=== PATIENT | male | born 1940 | race Caucasian/White ===

== ENCOUNTER 2017-01-06 12:03 | Inpatient (IN) ==
[2017-01-06] MEDS ORDERED: Ondansetron 4 MG/2 ML VIAL IVP ONE ×2 (12:33→15:50)
[2017-01-06] MEDS ORDERED: 0.9 % Sodium Chloride 1,000 ML IVC ONE (12:33)
[2017-01-06 13:14] LABS: VBG PH 7.45 pH Units (7.32-7.42)
[2017-01-06 13:18] LABS: Basophils % 0.1 %; Eosinophils % 0.1 %; Hematocrit 37.6 % (37.5-50.1); Immature Granulocytes % 0.4 % (0-4); Lymphocytes # 0.7 K/mcL (0.6-4.6); Lymphocytes % 5.8 %; Mean Corpuscular HGB Conc 34.6 g/dL (31.6-35.5); Mean Corpuscular Hemoglobin 30.2 pg (28.0-33.3); Mean Corpuscular Volume 87.4 fL (83.0-100.0); Mean Platelet Volume 13.6 fL (9.4-12.4); Monocytes # 0.8 K/mcL (0.0-1.3); Monocytes % 7.5 %; Neutrophils # 9.7 K/mcL (1.6-8.9); Platelet Count 177 K/mcL (140-400); Red Cell Distribution Width 13.6 % (11.5-14.5); Segmented Neutrophils % 86.1 %
[2017-01-06 13:34] LABS: Albumin 3.9 g/dL (3.5-5.0); Bilirubin,Total 0.6 mg/dL (0.2-1.2); Calcium 12.6 mg/dL (8.6-10.8); Globulin 3.8 g/dL (2.4-3.5); Potassium 4.5 mEq/L (3.5-4.5); Total Protein 7.7 g/dL (6.0-8.3)
--- NOTE | 2017-01-06 14:40 | Emergency Department Note ---
Disposition Clinical Impression: Dizziness, Hyperglycemia Nausea & vomiting Qualifiers: Vomiting type: unspecified Vomiting Intractability: unspecified Qualified Code( s): R11.2 - Nausea with vomiting, unspecified Falls Qualifiers: Encounter type: sequela Qualified Code(s): W19.XXXS - Unspecified fall, sequela Disposition: Admitted As Inpatient Condition: Good Forms: ED Satisfaction Letter Time of Disposition: 16:37 General Adult HPI - General Chief complaint: ED Nausea/Vomiting/Diarrhea Stated complaint: ROMAN,N/V/D x3days Time Seen by Provider: 01/06/17 12:17 Source: patient Mode of arrival: ambulatory Limitations: no limitations Nursing Notes Reviewed: Yes Vital Signs Reviewed: Yes - History of Present Illness HPI Narrative: Patient presents to emergency room with complaint of dizziness falls and poorly controlled glucose. Patient is also had intermittent nausea and vomiting. was concerned and wanted him evaluated today. Denies any recent trauma or injuries except for the falls. Patient has had dizziness and symptoms for over 7 days. Currently is a diabetic and his glucoses of them poorly controlled home. Denies chest pain shortness of breath headache vision changes or diarrhea. Main complaint is dizziness unsteady gait and nausea and vomiting Onset (ago): week(s) Radiation: non-radiation Pain Severity: moderate Pain Scale: 10 Consistency: constant Improves with: nothing Worsens with: movement Associated symptoms: Reports: loss of appetite, malaise, nausea/vomiting - Related Data Home Medications Medication Instructions Recorded Confirmed Allopurinol [Zyloprim 100 MG] 100 mg PO DAILY 01/02/16 01/02/16 Amlodipine Besylate 2.5 mg PO DAILY 01/02/16 01/02/16 Aspirin Enteric Coated [Aspirin EC] 81 mg PO DAILY 01/02/16 01/02/16 Atorvastatin [Lipitor] 40 mg PO HS 01/02/16 01/02/16 Clopidogrel [Plavix] 75 mg PO DAILY 01/02/16 01/02/16 Donepezil [Aricept] 10 mg PO HS 01/02/16 01/02/16 Esomeprazole Magnesium [Nexium] 40 mg PO DAILY 01/02/16 01/02/16 Fish Oil/Dha/Epa [Fish Oil 1,200 1 each PO BID 01/02/16 01/02/16 mg Fish Oil] Garlic [Odor Free Garlic] 100 mg PO DAILY 01/02/16 01/02/16 GlipiZIDE XL (24 HR) [Glucotrol XL] 10 mg PO DAILY 01/02/16 01/02/16 Insulin Glargine,Hum.rec.anlog 18 unit SQ HS 01/02/16 01/02/16 [Lantus Solostar] Losartan Potassium [Cozaar] 100 mg PO DAILY 01/02/16 01/02/16 Metoprolol [Lopressor] 100 mg PO BID 01/02/16 01/02/16 Pregabalin [Lyrica] 150 mg PO BID 01/02/16 01/02/16 Ranitidine HCl [Zantac] 150 mg PO HS 01/02/16 01/02/16 SitaGLIPtin [Januvia] 100 mg PO DAILY 01/02/16 01/02/16 Cholecalciferol (Vitamin D3) 5,000 unit PO DAILY 01/06/17 01/06/17 [Vitamin D3] Insulin LISPRO [Humalog Kwikpen 12 unit SQ TID 01/06/17 01/06/17 U-100] Levomefolate/B6/B12/Algal Oil 1 each PO BID 01/06/17 01/06/17 [Metanx Capsule] Sodium Bicarbonate 650 mg PO TID 01/06/17 01/06/17 Tadalafil [Cialis] 5 mg PO DAILY 01/06/17 01/06/17 Allergies Allergy/AdvReac Type Severity Reaction Status Date / Time Sulfa (Sulfonamide AdvReac Anaphylaxis Verified 01/06/17 12:11 Antibiotics) All systems ED: reviewed and negative except as stated. Constitutional: Denies: fever, chills, weakness Eyes: Denies: eye pain, eye discharge, vision change Cardiovascular: Denies: chest pain, palpitations, dyspnea on exertion, orthopnea Respiratory: Denies: cough, dyspnea, wheezes Gastrointestinal: Reports: nausea, vomiting. Denies: abdominal pain, diarrhea Genitourinary: Denies: dysuria, frequency Musculoskeletal: Denies: back pain, neck pain Integumentary: Denies: rash Neurological: Reports: abnormal gait, vertigo. Denies: headache Endocrine: Denies: fatigue Past Medical History - Past Medical History Attestation: Yes The following information was validated with the patient. Source: patient Medical history: Reports: coronary artery disease, dementia, diabetes, GERD, hyperlipidemia, hypertension, myocardial infarction, renal disease Surgical history: Reports: coronary bypass (CABG) Psychiatric history: Reports: no psych history - Social History Smoking Status: Never smoker Smokeless Tobacco Status: No Alcohol use: Reports: none Drug use: Reports: none Physical Exam - General Limitations: no limitations General appearance: alert - Head Head exam: atraumatic, normocephalic, normal inspection - Eye Eye exam: Present: normal appearance, PERRL, EOMI. Absent: miosis, mydriasis - ENT ENT exam: normal exam, normal oropharynx, mucous membranes moist - Neck Neck exam: Present: normal inspection, full ROM, trachea midline - Chest Chest inspection: Present: normal inspection, symmetric chest wall rise - Respiratory Respiratory exam: Present: normal lung sounds bilaterally. Absent: respiratory distress, wheezes, stridor, accessory muscle use - Cardiovascular Cardiovascular exam: Present: normal rhythm, tachycardia, normal heart sounds - Abdominal Exam Abdominal exam: Present: soft, Non-Tender, normal bowel sounds. Absent: tenderness, distention, guarding, rebound, rigidity, Beck's sign, Rovsing's sign, tenderness at McBurney's Point - Extremities Exam Extremities exam: Present: normal inspection, full ROM, normal capillary refill. Absent: tenderness - Back Exam Back exam: Present: normal inspection, full ROM. Absent: tenderness, CVA tenderness (R), CVA tenderness (L) - Neurological Exam Neurological exam: Present: alert, oriented X3, CN II-XII intact, normal gait - Skin Skin exam: Present: warm, dry, intact, normal color Course Course Narrative: Patient seen and examined the time of arrival. See history of present illness. 76-year-old male presents to emergency room with 7 days of nausea vomiting neck discomfort and stumbling gait. Glucoses about [id number] last several days. Patient was concerned about the multiple complaints he has had wanted him evaluated. is also concerned about generalized malaise. denies any recent illnesses fevers chills chest pain shortness of breath headache or vision changes. The patient on exam is complaining of generalized dizziness and this time and generalized malaise. He denies any recent fevers denies any significant vomiting at this time he has been persistently nauseous. Bedside Accu-Chek is rather over 500. Patient appears to be slightly dehydrated. He has no visible signs of focal neural deficits. He moves both extremities in the upper and lower distributions without any focal deficits or deviations. Cerebellar function appears to be intact patient has symmetric strength. Facial evaluation shows no facial asymmetry. Lungs are clear heart is regular except tachycardic. Abdomen is soft nontender nondistended with no guarding no rigidity. Patient has no signs of lower extremity edema. There is no visible signs of trauma or injuries. Pupils are equal round reactive at this time. Based on symptoms history and presentation patient is concerning for possible subacute infarct of the brain patient also is concerning for decompensation secondary to diabetes-related issue. I will address fluid resuscitation as well as symptoms of nausea medication here. EKG MRI of the head and neck to be ordered. Chest x-ray and CT of the abdomen ordered as well. Basic laboratory evaluation screening for N abnormalities or deficiencies noted at this time. Patient's family informed of our productive course of care. Patient has multiple complaints of multiple presenting issues at this time. Disposition will most likely be admission the hospital but we will continue to monitor here as treatment course is completed. 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 Otherwise his examination is benign. I reviewed these findings with the on-call neurologist Dr. Page. At this point there is no acute pathology noted are needed at this time. I will continue to hydrate the patient control his nausea readdress his glucose status at this time and provide insulin as needed. Patient will be admitted to the hospital for further evaluation and definitive management. Family was informed of the plan considering the patient has poorly controlled nausea poorly controlled diabetes generalized malaise at this time. The falls and ataxia do not have a focal source of this point but reevaluation will be completed in the inpatient setting. Imaging is still pending of the chest and abdomen. Treatment course to be completed admission to be completed at that time Time: 16:10 Reevaluation #2: CT imaging of the abdomen is negative for acute intra-abdominal pathology. Chest x-ray stable. Admission process to be completed this time. First dose of subcutaneous insulin to be given for repeat Accu-Chek of 450. Hospitalist paged at this time Time: 16:38 Reevaluation #3: Patient was reviewed with the hospitalist Dr. zacarias. We reviewed the presentation symptoms medical evaluation and the conversation had with the on- call neurologist. Patient to be admitted for what appears to be poorly controlled hypoglycemia and dizziness of unknown etiology and ataxia. The MRI findings as well as negative CT scan and chest x-ray were reviewed in detail. Patient does have an elevated troponin of 0.07. We do not have any comparable laboratory workup to review this with. I went over the EKG findings with concern for possible ischemic related issues considering he has analyzed malaise. Patient is having all these symptoms for 7 days with no change and denies chest pain again throughout the course of care. Patient provided with aspirin here. At this point patient be admitted for definitive evaluation and management. No other recommendations or issues noted at this time. We will continue monitoring in the emergency room at the admission process is completed. Patient is otherwise stable resting comfortably in the bed. Discussed all the conversations as well as recommendations with the family and they are comfortable with the plan. Patient is happy for her consideration and care. Time: 16:59 Vital Signs Temperature 98.8 F 01/06/17 12:11 Pulse Rate 121 01/06/17 12:11 Respiratory Rate 20 01/06/17 12:11 Blood Pressure 204/98 01/06/17 12:11 O2 Sat by Pulse Oximetry 97 01/06/17 12:11 Temperature 98.8 F 01/06/17 12:11 Pulse Rate 78 01/06/17 13:22 Respiratory Rate 18 01/06/17 13:22 Blood Pressure 162/112 01/06/17 13:22 O2 Sat by Pulse Oximetry 94 01/06/17 13:22 Oxygen Delivery Oxygen Delivery Room Air Medical Decision Making - [facility] [place] Narrative Medical decision making narrative: Falls, hyperglycemia, generalized malaise, vertigo, acute gyri infarct - Medical Records Medical records reviewed: Yes I reviewed the patient's medical records. - Lab Data Lab results reviewed: Yes I reviewed the patient's lab results. Result diagrams: 01/06/17 12:41 01/06/17 12:41 Lab Results 01/06/17 01/06/17 01/06/17 Range/Units 12:13 12:41 12:41 WBC 11.2 H (4.3-11.1) K/mcL RBC 4.30 (4.19-5.50) M/mcL Hgb 13.0 (12.9-16.9) g/dL Hct 37.6 (37.5-50.1) % MCV 87.4 (83.0-100.0) fL MCH 30.2 (28.0-33.3) pg MCHC 34.6 (31.6-35.5) g/dL RDW 13.6 (11.5-14.5) % Plt Count 177 (140-400) K/mcL MPV 13.6 H (9.4-12.4) fL Immature Gran % 0.4 (0-4) % Seg Neutrophils % 86.1 % Lymphocytes % 5.8 % Monocytes % 7.5 % Eosinophils % 0.1 % Basophils % 0.1 % Neutrophils # 9.7 H (1.6-8.9) K/mcL Lymphocytes # 0.7 (0.6-4.6) K/mcL Monocytes # 0.8 (0.0-1.3) K/mcL Eosinophils # 0.0 (0.0-0.6) K/mcL Basophils # 0.0 (0.0-0.2) K/mcL VBG pH (7.32-7.42) pH Units VBG pCO2 (41-51) mmHg VBG pO2 (25-40) mmHg VBG HCO3 (21-27) mEq/L Sodium 129 L (136-145) mEq/L Potassium 4.5 (3.5-4.5) mEq/L Chloride 88 L (98-109) mEq/L Carbon Dioxide 28 (19-29) mEq/L BUN 25 (8-26) mg/dL Creatinine 2.44 H (0.72-1.25) mg/dL Est GFR ( Amer) 31 L (> 60) Est GFR (Non-Af Amer) 26 L (> 60) BUN/Creatinine Ratio 10 (6-26) Glucose 626 H* (70-99) mg/dL POC Glucose 524 H* (58-89) Calculated Osmolality 302 H (280-300) Calcium 12.6 H (8.6-10.8) mg/dL Total Bilirubin 0.6 (0.2-1.2) mg/dL AST 28 (5-34) Units/L ALT 31 (0-55) Units/L Alkaline Phosphatase 84 (38-126) Units/L Serum Total Protein 7.7 (6.0-8.3) g/dL Albumin 3.9 (3.5-5.0) g/dL Globulin 3.8 H (2.4-3.5) g/dL Albumin/Globulin Ratio 1.0 L (1.1-2.2) Lipase 38 (8-78) Units/L Beta-Hydroxybutyric Acd (0.02-0.27) mmol/L 01/06/17 01/06/17 Range/Units 12:41 12:41 WBC (4.3-11.1) K/mcL RBC (4.19-5.50) M/mcL Hgb (12.9-16.9) g/dL Hct (37.5-50.1) % MCV (83.0-100.0) fL MCH (28.0-33.3) pg MCHC (31.6-35.5) g/dL RDW (11.5-14.5) % Plt Count (140-400) K/mcL MPV (9.4-12.4) fL Immature Gran % (0-4) % Seg Neutrophils % % Lymphocytes % % Monocytes % % Eosinophils % % Basophils % % Neutrophils # (1.6-8.9) K/mcL Lymphocytes # (0.6-4.6) K/mcL Monocytes # (0.0-1.3) K/mcL Eosinophils # (0.0-0.6) K/mcL Basophils # (0.0-0.2) K/mcL VBG pH 7.45 H (7.32-7.42) pH Units VBG pCO2 46 (41-51) mmHg VBG pO2 31 (25-40) mmHg VBG HCO3 32.0 H (21-27) mEq/L Sodium (136-145) mEq/L Potassium (3.5-4.5) mEq/L Chloride (98-109) mEq/L Carbon Dioxide (19-29) mEq/L BUN (8-26) mg/dL Creatinine (0.72-1.25) mg/dL Est GFR ( Amer) (> 60) Est GFR (Non-Af Amer) (> 60) BUN/Creatinine Ratio (6-26) Glucose (70-99) mg/dL POC Glucose (58-89) Calculated Osmolality (280-300) Calcium (8.6-10.8) mg/dL Total Bilirubin (0.2-1.2) mg/dL AST (5-34) Units/L ALT (0-55) Units/L Alkaline Phosphatase (38-126) Units/L Serum Total Protein (6.0-8.3) g/dL Albumin (3.5-5.0) g/dL Globulin (2.4-3.5) g/dL Albumin/Globulin Ratio (1.1-2.2) Lipase (8-78) Units/L Beta-Hydroxybutyric Acd 1.16 H (0.02-0.27) mmol/L - Radiology Data Radiology results reviewed: Yes I reviewed the patient's radiology results. CT of the abdomen and chest reviewed. See Decadron dose. MRI reviewed showing small acute infarct no other acute pathology noted. - EKG Data EKG #1 EKG attestation: Yes I reviewed and interpreted this EKG. EKG shows normal: sinus rhythm, axis, intervals, QRS complexes, ST-T waves Rate: tachycardia Rhythm: NSR [place]/QRS: normal Voltage: increased voltage throughout When compared to previous EKG there are: no significant changes Interpretation: no acute changes, unchanged when compared to prior tracing (date ) (09/11/15 morphology is similar to previous EKG at that time.) Critical Care Time Critical Care Time: Yes Total Critical Care Time: 45 Attestation: Critical care performed: Time is exclusive of separately billable procedures. Time includes: direct patient care, patient reassessment, coordination of patient care, interpretation of data (laboratory data, radiology data, and respiratory data), review of patient's medical records, medical consultation and documentation of patient care. Procedures included in critical care time: Procedures excluded from critical care time:
[2017-01-06] MEDS ORDERED: Insulin DETEMIR 100 UNIT/ML X5UNITS SQ ONE (16:35)
[2017-01-06] MEDS ORDERED: Aspirin 81 MG TAB.CHEW PO STA (16:50)
[2017-01-06] MEDS ORDERED: Insulin Regular, Human 100 UNIT/ML SQ ONE (17:12)
[2017-01-06] MEDS ORDERED: Naloxone 0.4 MG/ML INJ IVP PRN (17:39)
[2017-01-06] MEDS ORDERED: Ondansetron 4 MG/2 ML VIAL IVP PRN (17:39)
[2017-01-06] MEDS ORDERED: *HR* Dextrose 50 % in Water (Syg) 50 ML SYRINGE IVP PRN (17:45)
[2017-01-06] MEDS ORDERED: Dextrose Gel 15 GM PO PRN ×2 (17:45)
[2017-01-06] MEDS ORDERED: D5% in Water 1,000 ML IVC PRN (17:45)
[2017-01-06] MEDS ORDERED: *HR* Promethazine 25 MG/ML VIAL IVP PRN (18:11)
--- NOTE | 2017-01-06 18:45 | Internal Med History&Physical ---
Addendum entered and electronically signed by Nuvia Stewart CNP 01/07/17 00: 03: (1) Acute CVA: Patient presented with fall, and dizziness. MRI of brain showed punctate acute infarct in right middle frontal gyrus cortex. Patient given 325mg of aspirin. Continue atorvastatin and plavix. MRA of Head and neck obtained. Continuous athletic monitor. echocardiogram. Neurology consulted. Original Note: <Aleksey Fermin P - Last Filed: 01/06/17 20:06> Date of Encounter: 01/06/17 Internal Medicine - H&P: HPI History of present illness: Mr. Gillette is a 76 year old male Internal Medicine - H&P: Meds Allopurinol [Zyloprim 100 MG] 100 mg PO DAILY 01/02/16 [History] Amlodipine Besylate 2.5 mg PO DAILY 01/02/16 [History] Aspirin Enteric Coated [Aspirin EC] 81 mg PO DAILY 01/02/16 [History] Atorvastatin [Lipitor] 40 mg PO HS 01/02/16 [History] Clopidogrel [Plavix] 75 mg PO DAILY 01/02/16 [History] Donepezil [Aricept] 10 mg PO HS 01/02/16 [History] Esomeprazole Magnesium [Nexium] 40 mg PO DAILY 01/02/16 [History] Fish Oil/Dha/Epa [Fish Oil 1,200 mg Fish Oil] 1 each PO BID 01/02/16 [History] Garlic [Odor Free Garlic] 100 mg PO DAILY 01/02/16 [History] GlipiZIDE XL (24 HR) [Glucotrol XL] 10 mg PO DAILY 01/02/16 [History] Insulin Glargine,Hum.rec.anlog [Lantus Solostar] 40 unit SQ HS 01/02/16 [History ] Losartan Potassium [Cozaar] 100 mg PO DAILY 01/02/16 [History] Metoprolol [Lopressor] 100 mg PO BID 01/02/16 [History] Pregabalin [Lyrica] 150 mg PO BID 01/02/16 [History] Ranitidine HCl [Zantac] 150 mg PO HS 01/02/16 [History] SitaGLIPtin [Januvia] 100 mg PO DAILY 01/02/16 [History] Cholecalciferol (Vitamin D3) [Vitamin D3] 5,000 unit PO DAILY 01/06/17 [History] Insulin LISPRO [Humalog Kwikpen U-100] 12 unit SQ TID 01/06/17 [History] Levomefolate/B6/B12/Algal Oil [Metanx Capsule] 1 each PO BID 01/06/17 [History] Sodium Bicarbonate 650 mg PO TID 01/06/17 [History] Tadalafil [Cialis] 5 mg PO DAILY 01/06/17 [History] Allergies Sulfa (Sulfonamide Antibiotics) Adverse Reaction (Verified 01/06/17 12:11) Anaphylaxis All Systems PM: A 10-system review of systems was performed and is negative for pertinent findings except as documented above in the HPI. - Constitutional Vitals: Temp Pulse Resp BP Pulse Ox 98.8 F 114 18 144/92 96 01/06/17 12:11 01/06/17 17:36 01/06/17 19:04 01/06/17 19:04 01/06/17 17:36 Internal Med - H&P Results - Labs CBC & Chem 7: 01/06/17 12:41 01/06/17 12:41 - Attending Attestation I examined this patient and my medical decision-making was reviewed with the Resident Physician/CORPORATE QUALITY ASSURANCE MANAGER. I agree with the documented findings, disposition and treatment plan as described except to the extent set forth below. Admitted with multiple falls. Noted that MRI showed acute CVA. Also observed that his blood sugar is more than 500. Plan: ASA/statin PT/OT evaluation Echo, ultrasound carotid <Nuvia Stewart - Last Filed: 01/07/17 00:01> Date of Encounter: 01/06/17 Time of Encounter: 18:45 Assessment and Plan (1) Hyperglycemia Current visit: Yes Status: Acute Patient with blood sugar > 500 on presentation. He reports he has been nauseous and vomiting since and has not been taking his insulin because of this. Anion gap initially 13, improved to 10 after fluid administration. UA ordered. Continue fluids 0.9NS at 150. Total of 30u of basal levemir given. Checking blood sugar Q4hr and sliding scale insulin Q4hr. May switch to q6hr once blood sugar < 200. hypoglycemic protocol. (2) Dehydration Current visit: Yes Status: Acute Patient appears dehydrated secondary to N/V, poor oral intake. Given 1L bolus in ED. Continue with 0.9NS at 150mL/hr. (3) Type 2 diabetes mellitus Current visit: Yes Status: Acute check A1c Patient hyperglycemic and not tolerating PO well. Check blood sugars Q4hr Basal dose of levemir total of 30u given Sliding scale correction dose Q4hr May switch to Q6hr once blood sugar is < 200. hypoglycemic protocol. 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 Zofran and phenergan PRN for nausea IV fluids 0.9NS at 150mL/hr Qualifiers: Vomiting type: cyclical vomiting Vomiting Intractability: non-intractable Qualified Code(s): G43.A0 - Cyclical vomiting, not intractable (5) Falls Current visit: Yes Status: Acute Patient presented with dizziness and falls. When questioned, it sounds more like lightheadedness. Patient reports he only fell once and describes it at mechanical. MRI of head was obtained and did show punctate acute infarct in right middle frontal gyrus cortex. fall precautions neurology consult PT/OT consult. Qualifiers: Encounter type: initial encounter Qualified Code(s): W19.XXXA - Unspecified fall, initial encounter (6) Elevated troponin Current visit: Yes Status: Acute Troponin 0.07 on presentation. Patient not complaining of chest pain. EKG showed sinus tachycardia with no acute changes. Elevated troponin likely related to dehydration but will trend. Continuous athletic monitor Serial troponins, repeat came down to 0.02. (7) DVT prophylaxis Current visit: Yes Status: Acute anti-embolic stockings heparin SQ TID Internal Medicine - H&P: HPI Chief complaint: falls, elevated glucose Admitted From: Emergency Dept Plans for Post Hospital Care: Home History of present illness: Mr. Gillette is a 76 year old male with hypertension, hyperlipidemia, coronary artery disease status post CABG, type 2 diabetes, chronic kidney disease presented to the emergency department today with complaints of dizziness, falls , nausea, vomiting, and uncontrolled blood sugar. Patient reports that last he started feeling ill with nausea, vomiting, and that he has not been taking his medication since he started feeling sick, including his insulin. He complains of generalized weakness, occasional lightheadedness, and reports he did fall once, but describes it as a mechanical fall slipping on some spilled water. He denies headache, chest pain, palpitations, shortness of breath, diarrhea, or increased swelling. Evaluation in the emergency department revealed blood sugar above 500. He appeared dehydrated with elevated BUN and creatinine. Hyponatremia with sodium 129, anion gap was 13. Troponin was also elevated to 0.07. EKG shows sinus tachycardia with no acute ischemic changes. CT of abdomen and pelvis showed no acute process. MRI of the head showed a punctate acute infarct in the right middle frontal gyrus cortex, and a chronic infarct in the right frontal lobe. Patient was given fluids, insulin, and neurology was consulted. On exam, patient alert and oriented, in no acute distress. Heart had regular rate and rhythm, lungs are clear bilaterally to auscultation. No peripheral edema. Abdomen is soft nontender with positive bowel sounds. Cranial nerves intact, no pronator drift. Past Med Surg Social Fam HX - Past Medical History Medical history: coronary artery disease, dementia, diabetes, GERD, hyperlipidemia, hypertension, myocardial infarction, renal disease Psychiatric history: no psych history - Past Surgical History Surgical History: coronary bypass (CABG) - Social History Smoking Status: Never smoker Smokeless Tobacco Status: No Alcohol use: none Drug use: none - Family History Mother Living Status: Hx Family Cardiac Disorders: Yes All Systems PM: A 10-system review of systems was performed and is negative for pertinent findings except as documented above in the HPI. - Constitutional Constitutional: chills, falls, night sweats, weakness, no fever(s) - EENT Eyes: no change in vision, no discharge, no pain, no photophobia Ears: no ear discharge, no ear pain, no tinnitus Nose, mouth and throat: no dysphagia, no nasal discharge, no neck pain, no sore throat - Cardiovascular Cardiovascular ROS IM: lightheadedness, no chest pain, no diaphoresis, no dyspnea, no palpitations, no syncope - Respiratory Respiratory: no cough, no dyspnea, no wheezing, no excessive phlegm production - Gastrointestinal Gastrointestinal: nausea, vomiting, no abdominal pain, no diarrhea, no hematemesis, no hematochezia, no melena - Musculoskeletal Musculoskeletal ROS IM: no numbness, no tingling - Integumentary Integumentary IM: no rash, no unusual bruising - Neurological Neurological ROS: no confusion, no convulsions, no focal weakness, no numbness, no tingling, no tremor(s) - Hematologic/Lymphatic Hematologic/Lymphatic: no easy bruising - Constitutional Vitals: Temp Pulse Resp BP Pulse Ox 98.8 F 114 18 172/129 96 01/06/17 12:11 01/06/17 17:36 01/06/17 17:36 01/06/17 17:36 01/06/17 17:36 General appearance: Present: A&O X 3, pleasant, no acute distress - Head Head exam: Present: atraumatic, normocephalic - Eye Eye exam: Present: PERRL, conjuntiva pink, sclera anicteric Pupils: Present: PERRL - Neck Neck exam general surgery: Present: supple, trachea midline. Absent: lymphadenopathy - Respiratory Respiratory exam: Present: CTAB. Absent: accessory muscle use, rales, rhonchi, wheezes - Cardiovascular Cardiovascular exam: Present: RRR, +S1, +S2. Absent: diastolic murmur, gallop, rubs, systolic murmur - GI/Abdominal GI/Abdominal exam: Present: normal bowel sounds, soft, no peritoneal signs. Absent: distended, tenderness - Extremities Exam Extremities exam: Present: warm, radial pulses palpable and symetrical. Absent : calf tenderness, cyanotic, pedal edema - Neurological Exam Neurological exam: Present: CN II-XII intact, oriented X3, no focal deficits. Absent: pronater drift, facial droop, speech deficit - Skin Skin exam: Present: dry, intact Internal Med - H&P Results - Labs CBC & Chem 7: 01/06/17 12:41 01/06/17 20:28 Labs: Short CBC 01/06/17 Range/Units 12:41 WBC 11.2 H (4.3-11.1) K/mcL Hgb 13.0 (12.9-16.9) g/dL Hct 37.6 (37.5-50.1) % Plt Count 177 (140-400) K/mcL Neutrophils # 9.7 H (1.6-8.9) K/mcL BMP 01/06/17 12:41 Sodium 129 L Potassium 4.5 Chloride 88 L Carbon Dioxide 28 BUN 25 Creatinine 2.44 H Glucose 626 H* Calcium 12.6 H Cardiac Enzymes 01/06/17 Range/Units 12:41 Troponin I 0.07 H* (0-0.03) ng/mL Liver Function 01/06/17 Range/Units 12:41 Total Bilirubin 0.6 (0.2-1.2) mg/dL AST 28 (5-34) Units/L ALT 31 (0-55) Units/L Alkaline Phosphatase 84 (38-126) Units/L Albumin 3.9 (3.5-5.0) g/dL - ABG Interpretation ABG results: 01/06/17 12:41 VBG pH 7.45 H VBG pCO2 46 VBG pO2 31 VBG HCO3 32.0 H - Impressions ITS Impressions Brain MRI 01/06/17 00:00 IMPRESSION: 1. Punctate acute infarct noted in the right middle frontal gyrus cortex (series 6, image 25). This is in the anterior right MCA vascular distribution and may represent sequela of a proximal embolic source. 2. Chronic infarct noted in the cortical and subcortical white matter of the right frontal lobe. 3. Mild chronic microvascular white matter ischemic disease is noted supratentorially. D/ / 01/06/2017 15:57:08 Chris Elder MD / [facility] Interpreting Provider: Chris Elder MD Head MRA 01/06/17 12:34 IMPRESSION: 1. Short segment mild to moderate stenosis of a proximal M2 branch of the right middle cerebral artery. 2. Otherwise, unremarkable MR angiogram of the [place]. D/ / 01/06/2017 15:37:03 Fidel Reyna MD / [facility] Interpreting Provider: Fidel Reyna MD Neck MRA 01/06/17 12:34 IMPRESSION: 1. Limited MRA of the neck given the lack of IV contrast. 2. There is an estimated 75% stenosis at the right internal carotid artery origin and a tandem 50% stenosis approximately 1.7 cm distal to the origin. 3. There is a 40% stenosis in the proximal left internal carotid artery. 4. Antegrade flow is noted in the left vertebral artery on the 2D lffi-ru-zdbhut imaging, however, this is poorly visualized on the 3D kdhm-fv-lxmcyv imaging which could be related to its small size. The right vertebral artery is grossly patent, however, there may be a mild stenosis near its origin. D/ / 01/06/2017 15:39:47 Chris Elder MD / [facility] Interpreting Provider: Chris Elder MD Abdomen/Pelvis CT 01/06/17 15:51 IMPRESSION: No acute process D/ / Henok Gibson MD / Henok Gibson MD Interpreting Provider: Henok Gibson MD Chest X-Ray 01/06/17 15:51 IMPRESSION: 1. No acute radiographic finding in the chest. D/ / Loc Rojas MD / Loc Rojas MD Interpreting Provider: Loc Rojas MD - Diagnostic Studies Chest x-ray Additional comments: Chest X-Ray 01/06/17 15:51 IMPRESSION: 1. No acute radiographic finding in the chest. D/ / Loc Rojas MD / Loc Rojas MD Interpreting Provider: Loc Rojas MD CT scan - head Additional comments: MRI - head Additional comments: Brain MRI 01/06/17 00:00 IMPRESSION: 1. Punctate acute infarct noted in the right middle frontal gyrus cortex (series 6, image 25). This is in the anterior right MCA vascular distribution and may represent sequela of a proximal embolic source. 2. Chronic infarct noted in the cortical and subcortical white matter of the right frontal lobe. 3. Mild chronic microvascular white matter ischemic disease is noted supratentorially. D/ / 01/06/2017 15:57:08 Chris Elder MD / [facility] Interpreting Provider: Chris Elder MD Head MRA 01/06/17 12:34 IMPRESSION: 1. Short segment mild to moderate stenosis of a proximal M2 branch of the right middle cerebral artery. 2. Otherwise, unremarkable MR angiogram of the [place]. D/ / 01/06/2017 15:37:03 Fidel Reyna MD / [facility]ony Interpreting Provider: Fidel Reyna MD Neck MRA 01/06/17 12:34 IMPRESSION: 1. Limited MRA of the neck given the lack of IV contrast. 2. There is an estimated 75% stenosis at the right internal carotid artery origin and a tandem 50% stenosis approximately 1.7 cm distal to the origin. 3. There is a 40% stenosis in the proximal left internal carotid artery. 4. Antegrade flow is noted in the left vertebral artery on the 2D egym-cr-wzdaym imaging, however, this is poorly visualized on the 3D bnac-lc-gyfxoq imaging which could be related to its small size. The right vertebral artery is grossly patent, however, there may be a mild stenosis near its origin. D/ / 01/06/2017 15:39:47 Chris Elder MD / rony Interpreting Provider: Chris Elder MD CT scan - abdomen Additional comments: Abdomen/Pelvis CT 01/06/17 15:51
[2017-01-06 20:56] LABS: Potassium 4.4 mEq/L (3.5-4.5)
[2017-01-06] MEDS: 0.9 % Sodium Chloride 1,000 ML IVC SCH (21:16)
[2017-01-06] MEDS: Insulin LISPRO 300 UNITS/3 ML VIAL SQ SCH ×2 (21:16→23:55)
[2017-01-06] MEDS: Insulin DETEMIR 100 UNIT/ML X5UNITS SQ SCH (21:29)
[2017-01-06] MEDS: Pregabalin 75 MG CAPSULE PO SCH (21:47)
[2017-01-06] MEDS: Metoprolol 100 MG TABLET PO SCH (21:47)
[2017-01-06] MEDS: Famotidine 20 MG TABLET PO SCH (21:48)
[2017-01-06] MEDS: *HR* Heparin 5,000 UNIT/ML VIAL SQ SCH (23:48)
[2017-01-07 00:24] LABS: Bilirubin,Urine Negative (Negative); Blood,Urine Small (Negative); Clarity,Urine Clear (Clear); Color,Urine Yellow (Yellow); Glucose,Urine (UA) >=1000 mg/dL (Normal); Ketones,Urine Negative (Negative); Leukocyte Esterase,Urine Negative (Negative); Nitrite,Urine Negative (Negative); PH,Urine 5.5 pH Units (5.0-8.0); Protein,Urine 100 mg/dL (Neg-Trace); Specific Gravity,Urine > 1.030 (1.010-1.025); Urobilinogen,Urine Normal (Normal)
[2017-01-07 00:28] LABS: Bacteria,Urine None Seen per hpf (None-Few); Hyaline Casts,Urine None Seen per lpf (None-Few); RBC,Urine 0-3 per hpf (0-3); Squamous Epithelial Cell,Urine Moderate per lpf (None-Few); WBC,Urine 0-3 per hpf (0-3)
[2017-01-07 02:09] LABS: Basophils % 0.3 %; Eosinophils # 0.1 K/mcL (0.0-0.6); Eosinophils % 0.8 %; Hematocrit 31.9 % (37.5-50.1); Hemoglobin 11.1 g/dL (12.9-16.9); Immature Granulocytes % 0.3 % (0-4); Lymphocytes # 1.7 K/mcL (0.6-4.6); Lymphocytes % 14.5 %; Mean Corpuscular HGB Conc 34.8 g/dL (31.6-35.5); Mean Corpuscular Hemoglobin 30.5 pg (28.0-33.3); Mean Corpuscular Volume 87.6 fL (83.0-100.0); Mean Platelet Volume 13.4 fL (9.4-12.4); Monocytes # 1.7 K/mcL (0.0-1.3); Monocytes % 14.2 %; Neutrophils # 8.3 K/mcL (1.6-8.9); Platelet Count 173 K/mcL (140-400); Red Blood Count 3.64 M/mcL (4.19-5.50); Red Cell Distribution Width 13.7 % (11.5-14.5); Segmented Neutrophils % 69.9 %
[2017-01-07 02:25] LABS: Potassium 4.4 mEq/L (3.5-4.5)
[2017-01-07] MEDS: 0.9 % Sodium Chloride 1,000 ML IVC SCH ×3 (03:52→20:05)
[2017-01-07] MEDS: Insulin LISPRO 300 UNITS/3 ML VIAL SQ SCH ×5 (04:45→21:54)
--- NOTE | 2017-01-07 09:06 | Internal Med Progress Note ---
<Meng Cano - Last Filed: 01/07/17 16:58> Date of Encounter: 01/07/17 Time of Encounter: 09:06 - Assessment and plan (1) Acute CVA (cerebrovascular accident) Current Visit: Yes Status: Acute Assessment and plan: Acute recurrent CVA despite anticoagulation with both aspirin and Plavix. ( Failure of Primary and secondary stroke prevention). Awaiting neurology consultation/recommendations. Patient presented with fall, and dizziness. MRI of brain showed punctate acute infarct in right middle frontal gyrus cortex. Patient given 325mg of aspirin. MRA of Head and neck obtained. 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 Continue atorvastatin and plavix. PT/OT recommends home health care 3 times per week upon discharge with 4 wheeled walker Echo reveals LVEF 60%, All wall segments showed normal motion Ultrasound carotid pending (2) Acute kidney injury Current Visit: Yes Status: Acute Assessment and plan: Creatinine slowly improving. Continue IV fluids and monitoring (3) Demand ischemia Current Visit: Yes Status: Acute Assessment and plan: Initial troponin elevation record related to remained ischemia and dehydration. Subsequent troponin is negative 2 (4) Falls Current Visit: Yes Status: Acute Assessment and plan: Fall precautions. PT/ OT recommends rolling walker and home health care upon discharge Qualifiers: Encounter type: initial encounter Qualified Code(s): W19.XXXA - Unspecified fall, initial encounter (5) Type 2 diabetes mellitus Current Visit: Yes Status: Acute Assessment and plan: Patient with blood sugar > 500 on presentation. He reports he has been nauseous and vomiting since and has not been taking his insulin because of this. Anion gap initially 13, improved to 10 after fluid administration. Continue fluids 0.9NS at 150. Monitor blood sugar and continue sliding scale insulin per hypoglycemic protocol. 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 Fermin - Subjective Interval history: Patient resting comfortably in bed. Patient is surprised to hear that he had a CVA. Question short-term memory loss. She denies any neurologic complaints or residual deficits at this time. Awaiting neurology recommendations. - Constitutional Vitals: Temp Pulse Resp BP Pulse Ox 98.3 F 72 15 172/82 93 01/07/17 07:22 01/07/17 07:22 01/07/17 07:22 01/07/17 07:22 01/07/17 07:22 General appearance: Present: A&O X 3, pleasant, no acute distress, obese, answers questions appropriately - Head Head exam: Present: atraumatic, normocephalic - Eye Eye exam: Present: PERRL, conjuntiva pink, sclera anicteric Pupils: Present: PERRL - ENT ENT exam: Present: mucous membranes moist, normal oropharynx - Neck Neck exam general surgery: Present: supple, trachea midline. Absent: lymphadenopathy - Respiratory Respiratory exam: Present: CTAB. Absent: accessory muscle use, rales, rhonchi, wheezes - Cardiovascular Cardiovascular exam: Present: RRR, +S1, +S2. Absent: diastolic murmur, gallop, rubs, systolic murmur - GI/Abdominal GI/Abdominal exam: Present: normal bowel sounds, soft, no peritoneal signs. Absent: distended, tenderness - Extremities Exam Extremities exam: Present: warm, radial pulses palpable and symetrical. Absent : calf tenderness, cyanotic, pedal edema - Neurological Exam Neurological exam: Present: alert, CN II-XII intact, oriented X3, no focal deficits, strengths equal and symetr throughout. Absent: motor sensory deficit , pronater drift, facial droop, speech deficit - Psychiatric Psychiatric exam: Present: flat affect, normal mood - Skin Skin exam: Present: dry, intact, warm Internal Medicine: Result - Labs CBC & Chem 7: 01/07/17 01:15 01/07/17 01:15 Labs: Short CBC 01/07/17 Range/Units 01:15 WBC 11.9 H (4.3-11.1) K/mcL Hgb 11.1 L D (12.9-16.9) g/dL Hct 31.9 L (37.5-50.1) % Plt Count 173 (140-400) K/mcL Neutrophils # 8.3 (1.6-8.9) K/mcL BMP 01/06/17 01/07/17 20:28 01:15 Sodium 133 L 136 Potassium 4.4 4.4 Chloride 94 L 100 Carbon Dioxide 29 27 BUN 25 25 Creatinine 2.27 H 2.05 H Glucose 482 H 220 H Calcium 12.0 H 11.0 H Cardiac Enzymes 01/07/17 Range/Units 01:15 Troponin I 0.03 (0-0.03) ng/mL Urine 01/07/17 Range/Units 00:07 Urine Color Yellow (Yellow) Urine Clarity Clear (Clear) Urine pH 5.5 (5.0-8.0) pH Units Ur Specific [place] > 1.030 H (1.010-1.025) Urine Protein 100 H (Neg-Trace) mg/dL Urine Glucose (UA) >=1000 H (Normal) mg/dL Consult Discharge Plan - Plan Referrals: Benny Jordan MD [Primary Care Provider] - <Aleksey Fermin - Last Filed: 01/07/17 18:32> Date of Encounter: 01/07/17 - Constitutional Vitals: Temp Pulse Resp BP Pulse Ox 98.4 F 71 16 105/63 92 01/07/17 15:44 01/07/17 15:44 01/07/17 15:44 01/07/17 15:44 01/07/17 15:44 Internal Medicine: Result - Labs CBC & Chem 7: 01/07/17 01:15 01/07/17 01:15 Labs: Short CBC 01/07/17 Range/Units 01:15 WBC 11.9 H (4.3-11.1) K/mcL Hgb 11.1 L D (12.9-16.9) g/dL Hct 31.9 L (37.5-50.1) % Plt Count 173 (140-400) K/mcL Neutrophils # 8.3 (1.6-8.9) K/mcL BMP 01/06/17 01/07/17 20:28 01:15 Sodium 133 L 136 Potassium 4.4 4.4 Chloride 94 L 100 Carbon Dioxide 29 27 BUN 25 25 Creatinine 2.27 H 2.05 H Glucose 482 H 220 H Calcium 12.0 H 11.0 H Cardiac Enzymes 01/07/17 Range/Units 01:15 Troponin I 0.03 (0-0.03) ng/mL Urine 01/07/17 Range/Units 00:07 Urine Color Yellow (Yellow) Urine Clarity Clear (Clear) Urine pH 5.5 (5.0-8.0) pH Units Ur Specific [place] > 1.030 H (1.010-1.025) Urine Protein 100 H (Neg-Trace) mg/dL Urine Glucose (UA) >=1000 H (Normal) mg/dL - Attending Attestation I examined this patient and my medical decision-making was reviewed with the Resident Physician. I agree with the documented findings, disposition and treatment plan as described except to the extent set forth below. Neurology recommendations appreciated. Likely home tomorrow.
[2017-01-07] MEDS: Pregabalin 75 MG CAPSULE PO SCH ×2 (09:18→21:53)
[2017-01-07] MEDS: Aspirin Enteric Coated 81 MG Tablet PO SCH (09:18)
[2017-01-07] MEDS: Metoprolol 100 MG TABLET PO SCH ×2 (09:18→21:53)
[2017-01-07] MEDS: *HR* Heparin 5,000 UNIT/ML VIAL SQ SCH ×2 (09:19→17:23)
[2017-01-07] MEDS: amLODIPine 5 MG TABLET PO SCH (09:19)
--- NOTE | 2017-01-07 18:06 | Neurology - Consult Note ---
Date of Encounter: 01/07/17 Time of Encounter: 18:03 Assessment and Plan (1) Abnormal brain MRI Current Visit: Yes Status: Acute I am not at all convinced that the MRI findings are all related to the symptoms he presented with acutely upon admission. None of his symptoms localize to the right cerebral hemisphere. Furthermore the area of microinfarct in the right frontal region is too small in my opinion to produce any observable clinical symptomatology. However nonetheless it may very well be a small microinfarct perhaps a micro-thromboembolic event from the stenosed M2 segment of the right middle cerebral artery or maybe even a micro-thromboembolic event from the 75% stenosed right internal carotid artery. His echocardiogram was negative. At this point I will recommend simply maintaining the aspirin and Plavix combination. Subclinical events and microinfarcts are fairly common amongst those individuals with stroke risk factors. Certainly aggressive management of the stroke risk factors is paramount. I will also recommend vascular consultation to determine whether or not a right carotid endarterectomy may be feasible. Studies have not shown anticoagulation to be superior to antiplatelet therapy with regard to intracranial vascular stenosis. I will reevaluate your request. History of Present Illness HPI: Mr. Gillette is a 76 year old male who was seen for neurologic evaluation secondary to an abnormal MRI scan of the brain. He states that he developed severe headache about 8:00 in the evening on the day of admission. He also experienced some nausea and vomiting prior to the headache. He localizes the headache to the left occipital nuchal region. Upon arrival to [facility] [place] laboratory work and neuroimaging were obtained. His glucose at the time was 482. MRI scan of the brain reveals a small hyperintense foci in the right frontal region consistent with a microvascular state to change acutely. He has also had an MRA scan of the brain which reveals mild to moderate stenosis of the right M2 segment of the right middle cerebral artery. In addition there is a 75% stenosis of the proximal right internal carotid artery. Currently he is awake and alert and in no acute distress. He does have multiple stroke risk factors including diabetes mellitus, coronary artery disease, hyperlipidemia, hypertension previous CA. He is already taking Plavix and aspirin. He also has a history of mild dementia. Past Med Surg Social Fam HX - Past Medical History Medical history: coronary artery disease, dementia, diabetes, GERD, hyperlipidemia, hypertension, myocardial infarction, renal disease Psychiatric history: no psych history - Past Surgical History Surgical History: coronary bypass (CABG) - Social History Smoking Status: Never smoker Smokeless Tobacco Status: No Alcohol use: none Drug use: none - Family History Father Living Status: Cause of : heart problems Hx Family Cardiac Disorders: Yes Mother Living Status: Hx Family Cardiac Disorders: Yes Medications and Allergies Allopurinol [Zyloprim 100 MG] 100 mg PO DAILY 01/02/16 [History] Amlodipine Besylate 2.5 mg PO DAILY 01/02/16 [History] Aspirin Enteric Coated [Aspirin EC] 81 mg PO DAILY 01/02/16 [History] Atorvastatin [Lipitor] 40 mg PO HS 01/02/16 [History] Clopidogrel [Plavix] 75 mg PO DAILY 01/02/16 [History] Donepezil [Aricept] 10 mg PO HS 01/02/16 [History] Esomeprazole Magnesium [Nexium] 40 mg PO DAILY 01/02/16 [History] Fish Oil/Dha/Epa [Fish Oil 1,200 mg Fish Oil] 1 each PO BID 01/02/16 [History] Garlic [Odor Free Garlic] 100 mg PO DAILY 01/02/16 [History] GlipiZIDE XL (24 HR) [Glucotrol XL] 10 mg PO DAILY 01/02/16 [History] Insulin Glargine,Hum.rec.anlog [Lantus Solostar] 40 unit SQ HS 01/02/16 [History ] Losartan Potassium [Cozaar] 100 mg PO DAILY 01/02/16 [History] Metoprolol [Lopressor] 100 mg PO BID 01/02/16 [History] Pregabalin [Lyrica] 150 mg PO BID 01/02/16 [History] Ranitidine HCl [Zantac] 150 mg PO HS 01/02/16 [History] SitaGLIPtin [Januvia] 100 mg PO DAILY 01/02/16 [History] Cholecalciferol (Vitamin D3) [Vitamin D3] 5,000 unit PO DAILY 01/06/17 [History] Insulin LISPRO [Humalog Kwikpen U-100] 12 unit SQ TID 01/06/17 [History] Levomefolate/B6/B12/Algal Oil [Metanx Capsule] 1 each PO BID 01/06/17 [History] Sodium Bicarbonate 650 mg PO TID 01/06/17 [History] Tadalafil [Cialis] 5 mg PO DAILY 01/06/17 [History] Allergies Sulfa (Sulfonamide Antibiotics) Adverse Reaction (Verified 01/06/17 12:11) Anaphylaxis All Systems: A 10-system review of systems was performed and is negative for pertinent findings except as documented above in the HPI. Review of Systems: 10 point review of systems is consistent with a history of present illness and otherwise negative. Physical Examination - Vital Signs Vital Signs: Initial Vital Signs Temp Pulse Resp BP Pulse Ox 98.8 F 121 20 204/98 97 01/06/17 12:11 01/06/17 12:11 01/06/17 12:11 01/06/17 12:11 01/06/17 12:11 - Neurologic Detailed motor examination: full strength in all major muscle groups Motor examination - right side: 5/5: deltoids, biceps, triceps, wrist flexion, wrist extension, automatic quilling machine operator, hip flexors, tibialis Anterior, quadriceps, toe extension (EHL), plantarflexion Motor examination - left side: 5/5: deltoids, biceps, triceps, wrist flexion, wrist extension, hip flexors, automatic quilling machine operator, quadriceps, tibialis Anterior, toe extension (EHL), plantarflexion Mental Status Examination: awake, alert, oriented to person, oriented to place, oriented to time, follows commands appropriately, answers questions appropriately, no agnosia, no aphasia, no aproxia Cranial nerve examination: PERRL, EOMI, visual chance intact, corneal reflexes brisk symmetrically, sensory to face intact, mastication intact, no facial asymmetry is present, no dysarthria, hearing is intact symmetrically, soft palate elevates bilaterally upon phonation, gag reflex intact, flexes SCM and trapezius muscles symmetrically with full power, tongue protrudes midline, no atrophy or facial fasiculations present Cerebellar examination: no dysmetria, performs finger to nose and heel to schaffer symmetrically without ataxia, no gait ataxia, no truncal ataxia, no difficulty with rapid alternating movements Results - Laboratory Findings CBC and BMP: 01/07/17 01:15 01/07/17 01:15 Abnormal lab findings: Abnormal lab results WBC 11.9 K/mcL (4.3-11.1) H 01/07/17 01:15 RBC 3.64 M/mcL (4.19-5.50) L 01/07/17 01:15 Hgb 11.1 g/dL (12.9-16.9) L D 01/07/17 01:15 Hct 31.9 % (37.5-50.1) L 01/07/17 01:15 MPV 13.4 fL (9.4-12.4) H 01/07/17 01:15 Monocytes # 1.7 K/mcL (0.0-1.3) H 01/07/17 01:15 VBG pH 7.45 pH Units (7.32-7.42) H 01/06/17 12:41 VBG HCO3 32.0 mEq/L (21-27) H 01/06/17 12:41 Creatinine 2.05 mg/dL (0.72-1.25) H 01/07/17 01:15 Est GFR ( Amer) 38 (> 60) L 01/07/17 01:15 Est GFR (Non-Af Amer) 32 (> 60) L 01/07/17 01:15 Glucose 220 mg/dL (70-99) H 01/07/17 01:15 POC Glucose 262 (58-89) H 01/07/17 04:12 Calcium 11.0 mg/dL (8.6-10.8) H 01/07/17 01:15 Globulin 3.8 g/dL (2.4-3.5) H 01/06/17 12:41 Albumin/Globulin Ratio 1.0 (1.1-2.2) L 01/06/17 12:41 Beta-Hydroxybutyric Acd 1.16 mmol/L (0.02-0.27) H 01/06/17 12:41 Ur Specific [place] > 1.030 (1.010-1.025) H 01/07/17 00:07 Urine Protein 100 mg/dL (Neg-Trace) H 01/07/17 00:07 Urine Glucose (UA) >=1000 mg/dL (Normal) H 01/07/17 00:07 Urine Blood Small (Negative) H 01/07/17 00:07 Ur Squamous Epith Cells Moderate per lpf (None-Few) H 01/07/17 00:07 Consult Discharge Plan - Plan Referrals: Benny Jordan MD [Primary Care Provider] -
[2017-01-07] MEDS: Acetaminophen 325 MG TABLET PO PRN (19:58)
[2017-01-07] MEDS: Insulin DETEMIR 100 UNIT/ML X5UNITS SQ SCH (21:52)
[2017-01-07] MEDS: Famotidine 20 MG TABLET PO SCH (21:53)
[2017-01-08] MEDS: *HR* Heparin 5,000 UNIT/ML VIAL SQ SCH ×3 (00:03→16:01)
[2017-01-08] MEDS: Insulin LISPRO 300 UNITS/3 ML VIAL SQ SCH ×6 (00:04→21:50)
[2017-01-08] MEDS: 0.9 % Sodium Chloride 1,000 ML IVC SCH ×4 (03:38→17:10)
[2017-01-08 06:03] LABS: Basophils # 0.1 K/mcL (0.0-0.2); Basophils % 0.6 %; Eosinophils # 0.4 K/mcL (0.0-0.6); Eosinophils % 4.9 %; Hematocrit 32.8 % (37.5-50.1); Hemoglobin 10.7 g/dL (12.9-16.9); Immature Granulocytes % 0.5 % (0-4); Lymphocytes # 2.3 K/mcL (0.6-4.6); Lymphocytes % 26.8 %; Mean Corpuscular HGB Conc 32.6 g/dL (31.6-35.5); Mean Corpuscular Hemoglobin 29.6 pg (28.0-33.3); Mean Corpuscular Volume 90.6 fL (83.0-100.0); Mean Platelet Volume 13.1 fL (9.4-12.4); Monocytes # 1.2 K/mcL (0.0-1.3); Monocytes % 13.2 %; Neutrophils # 4.7 K/mcL (1.6-8.9); Platelet Count 157 K/mcL (140-400); Red Blood Count 3.62 M/mcL (4.19-5.50); Red Cell Distribution Width 13.5 % (11.5-14.5)
[2017-01-08 06:17] LABS: Potassium 4.4 mEq/L (3.5-4.5)
[2017-01-08 06:18] LABS: Calcium 8.9 mg/dL (8.6-10.8)
--- NOTE | 2017-01-08 06:41 | Electrocardiograph Report ---
[place] [id number] Test Date: 2017-01-06 Pat Name: Ca Gillette Department: 104 Room: 3B44 Gender: M Bander Operator: [facility] : 1940 Requested By: Cecil Javier Order Number: [id number] Reading MD: Rex Shelton MD Measurements Intervals [place] Rate: 101 P: 30 MS: 184 QRS: 9 QRSD: 86 T: 66 QT: 335 QTc: 393 Interpretive Statements SINUS TACHYCARDIA INFERIOR MYOCARDIAL INFARCTION, PROBABLY OLD Electronically Signed On 01-08-2017 6:39:52 EDT by Rex Shelton MD
[2017-01-08] MEDS: Metoprolol 100 MG TABLET PO SCH ×2 (08:06→21:49)
[2017-01-08] MEDS: amLODIPine 5 MG TABLET PO SCH (08:06)
[2017-01-08] MEDS: Pregabalin 75 MG CAPSULE PO SCH ×2 (08:07→21:49)
[2017-01-08] MEDS: Aspirin Enteric Coated 81 MG Tablet PO SCH (08:07)
[2017-01-08] MEDS: Acetaminophen 325 MG TABLET PO PRN ×2 (11:03→19:40)
--- NOTE | 2017-01-08 15:45 | Internal Med Progress Note ---
<Meng Cano - Last Filed: 01/08/17 15:42> Date of Encounter: 01/08/17 Time of Encounter: 10:00 - Assessment and plan (1) Acute CVA (cerebrovascular accident) Current Visit: Yes Status: Acute Assessment and plan: Acute recurrent CVA despite anticoagulation with both aspirin and Plavix. Patient presented with fall, and dizziness. MRI of brain showed punctate acute infarct in right middle frontal gyrus cortex. Patient given 325mg of aspirin. MRA of Head and neck obtained. Continuous nuclear monitoring technician. Neurology recommends Continuing atorvastatin, aspirin, and plavix. PT/OT recommends home health care 3 times per week upon discharge with 4 wheeled walker Echo reveals LVEF 60%, All wall segments showed normal motion Ultrasound carotid pending Awaiting vascular surgery consultation/recommendations. (2) Acute kidney injury Current Visit: Yes Status: Acute Assessment and plan: Continue IV fluids and monitoring (3) Demand ischemia Current Visit: Yes Status: Acute Assessment and plan: Initial troponin elevation record related to remained ischemia and dehydration. Subsequent troponin is negative 2 (4) Falls Current Visit: Yes Status: Acute Assessment and plan: Fall precautions. PT/ OT recommends rolling walker and home health care upon discharge Qualifiers: Encounter type: initial encounter Qualified Code(s): W19.XXXA - Unspecified fall, initial encounter (5) Type 2 diabetes mellitus Current Visit: Yes Status: Acute Assessment and plan: Patient with blood sugar > 500 on presentation. He reports he has been nauseous and vomiting since and has not been taking his insulin because of this. Continue fluids 0.9NS at 150. Monitor blood sugar and continue sliding scale insulin per hypoglycemic protocol. 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 Fermin - Subjective Interval history: Patient resting comfortably in bed. He denies any neurologic complaints or residual deficits at this time. Awaiting vascular surgery recommendations. - Constitutional Vitals: Temp Pulse Resp BP Pulse Ox 98.2 F 64 18 146/71 94 01/08/17 15:33 01/08/17 15:33 01/08/17 15:33 01/08/17 15:33 01/08/17 15:33 General appearance: Present: A&O X 3, pleasant, no acute distress, obese, answers questions appropriately - Head Head exam: Present: atraumatic, normocephalic - Eye Eye exam: Present: PERRL, conjuntiva pink, sclera anicteric Pupils: Present: PERRL - ENT ENT exam: Present: mucous membranes moist, normal oropharynx - Neck Neck exam general surgery: Present: supple, trachea midline. Absent: lymphadenopathy - Respiratory Respiratory exam: Present: CTAB. Absent: accessory muscle use, rales, rhonchi, wheezes - Cardiovascular Cardiovascular exam: Present: RRR, +S1, +S2. Absent: diastolic murmur, gallop, rubs, systolic murmur - GI/Abdominal GI/Abdominal exam: Present: normal bowel sounds, soft, no peritoneal signs. Absent: distended, tenderness - Extremities Exam Extremities exam: Present: warm, radial pulses palpable and symetrical. Absent : calf tenderness, cyanotic, pedal edema - Neurological Exam Neurological exam: Present: CN II-XII intact, oriented X3, no focal deficits. Absent: pronater drift, facial droop, speech deficit - Psychiatric Psychiatric exam: Present: normal affect, normal mood - Skin Skin exam: Present: dry, intact, warm Internal Medicine: Result - Labs CBC & Chem 7: 01/08/17 05:30 01/08/17 05:30 Labs: Short CBC 01/08/17 Range/Units 05:30 WBC 8.7 (4.3-11.1) K/mcL Hgb 10.7 L (12.9-16.9) g/dL Hct 32.8 L (37.5-50.1) % Plt Count 157 (140-400) K/mcL Neutrophils # 4.7 (1.6-8.9) K/mcL BMP 01/08/17 05:30 Sodium 136 Potassium 4.4 Chloride 105 Carbon Dioxide 27 BUN 35 H D Creatinine 2.05 H Glucose 233 H Calcium 8.9 D - VTE Documentation of Mechanical Device: Graduated compression elastic hosiery Consult Discharge Plan - Plan Referrals: Benny Jordan MD [Primary Care Provider] - <Aleksey Fermin P - Last Filed: 01/08/17 18:21> Date of Encounter: 01/08/17 - Constitutional Vitals: Temp Pulse Resp BP Pulse Ox 98.2 F 64 18 146/71 94 01/08/17 15:33 01/08/17 15:33 01/08/17 15:33 01/08/17 15:33 01/08/17 15:33 Internal Medicine: Result - Labs CBC & Chem 7: 01/08/17 05:30 01/08/17 05:30 Labs: Short CBC 01/08/17 Range/Units 05:30 WBC 8.7 (4.3-11.1) K/mcL Hgb 10.7 L (12.9-16.9) g/dL Hct 32.8 L (37.5-50.1) % Plt Count 157 (140-400) K/mcL Neutrophils # 4.7 (1.6-8.9) K/mcL BMP 01/08/17 05:30 Sodium 136 Potassium 4.4 Chloride 105 Carbon Dioxide 27 BUN 35 H D Creatinine 2.05 H Glucose 233 H Calcium 8.9 D - Attending Attestation I examined this patient and my medical decision-making was reviewed with the Resident Physician. I agree with the documented findings, disposition and treatment plan as described except to the extent set forth below. home tomorrow
--- NOTE | 2017-01-08 17:38 | Carotid Imaging Report ---
Carotid Duplex Patient Name:Ca Gillette Order Number:[id number] Procedure Date:01/08/2017 Date:1940Age:76 yrs Gender:Male Rt.BP:134 / 83 mmHgHeart Rate: [facility] Room #: 44 Industrial Truck Operator:Penny Toledo, RDDAYANA Referring MD:Rosalee Viramontes NON DESTRUCTIVE TESTING ENGINEER cut press operator:Benny Jordan MD Reading MD:Mayclo Welch MD , FACS Primary Indications:CVA Risk Factors Yes/No Hypertension Yes Diabetes Yes Hypercholesterolemia Yes Hx of CAD/PTCA Yes Anticoagulants Yes Impressions: Findings: Left carotid system minimal plaque throughout. Findings: Right ICA has a severe, 60-79% stenosis. Recommendations: Preliminary noted in pt EMR. Findings Carotid Duplex: Right: The right proximal common carotid artery has a PSV of 93 cm/s and a EDV of 11 cm/s. The right mid common carotid artery has a PSV of 71 cm/s and a EDV of 10 cm/s. The right distal common carotid artery has a PSV of 90 cm/s and a EDV of 11 cm/s. There is nonstenotic plaque in the right bifurcation with a PSV of 130 cm/s and a EDV of 16 cm/s. There is 60-79% stenosis in the right proximal internal carotid artery with a PSV of 201 cm/s and a EDV of 30 cm/s. There is 60-79% stenosis in the right mid internal carotid artery with a PSV of 184 cm/s and a EDV of 35 cm/s. There is 60-79% stenosis in the right distal internal carotid artery with a PSV of 191 cm/s and a EDV of 26 cm/s. The right eca has a PSV of 161 cm/s and a EDV of 2 cm/s. The right vertebral artery has a PSV of 57 cm/s and a EDV of 15 cm/s. There is antegrade spectral Doppler flow patterns. Left: The left proximal common carotid artery has a PSV of 107 cm/s and a EDV of 11 cm/s. The left mid common carotid artery has a PSV of 108 cm/s and a EDV of 11 cm/s. The left distal common carotid artery has a PSV of 107 cm/s and a EDV of 16 cm/s. There is nonstenotic plaque in the left bifurcation with a PSV of 130 cm/s and a EDV of 14 cm/s. The left proximal internal carotid artery has a PSV of 103 cm/s and a EDV of 20 cm/s. The left mid internal carotid artery has a PSV of 98 cm/s and a EDV of 19 cm/s. The left distal internal carotid artery has a PSV of 94 cm/s and a EDV of 22 cm/s. The left eca has a PSV of 140 cm/s and a EDV of 3 cm/s. The left vertebral artery has a PSV of 26 cm/s and a EDV of 7 cm/s. There is antegrade spectral Doppler flow patterns. Prior Study: No prior study available for comparison. Carotid Results Right PSV EDV Assessment Proximal CCA 93 11 Mid CCA 71 10 Distal CCA 90 11 Bifurcation 130 16 Non Stenotic Plaque Proximal ICA 201 30 60-79% stenosis Mid ICA 184 35 60-79% stenosis Distal ICA 191 26 60-79% stenosis ECA 161 2 Vertebral Artery 57 15 Antegrade Flow Left PSV EDV Assessment Proximal CCA 107 11 Mid CCA 108 11 Distal CCA 107 16 Bifurcation 130 14 Non Stenotic Plaque Proximal ICA 103 20 Mid ICA 98 19 Distal ICA 94 22 ECA 140 3 Vertebral Artery 26 7 Antegrade Flow Ratio's Right ICA/CCA Ratio: 2.83 ICA/CCA Values: 201/71 Left ICA/CCA Ratio: 0.95 ICA/CCA Values: 103/108 Updated by Maycol Welch MD, FACS on 01/08/2017 5:31:00 PM Maycol Welch MD electronically signed on 01/08/2017 5:32:01 PM with status of Final
[2017-01-08] MEDS: Famotidine 20 MG TABLET PO SCH (21:50)
[2017-01-08] MEDS: Insulin DETEMIR 100 UNIT/ML X5UNITS SQ SCH (21:50)
[2017-01-09] MEDS: Insulin LISPRO 300 UNITS/3 ML VIAL SQ SCH ×2 (01:07→04:19)
[2017-01-09] MEDS: *HR* Heparin 5,000 UNIT/ML VIAL SQ SCH (01:11)
[2017-01-09 05:04] LABS: Basophils # 0.1 K/mcL (0.0-0.2); Basophils % 0.7 %; Eosinophils # 0.6 K/mcL (0.0-0.6); Eosinophils % 7.7 %; Hematocrit 32.7 % (37.5-50.1); Hemoglobin 11.1 g/dL (12.9-16.9); Immature Granulocytes % 0.5 % (0-4); Lymphocytes # 2.1 K/mcL (0.6-4.6); Lymphocytes % 25.5 %; Mean Corpuscular HGB Conc 33.9 g/dL (31.6-35.5); Mean Corpuscular Hemoglobin 30.2 pg (28.0-33.3); Mean Corpuscular Volume 88.9 fL (83.0-100.0); Monocytes % 12.5 %; Neutrophils # 4.4 K/mcL (1.6-8.9); Platelet Count 151 K/mcL (140-400); Red Blood Count 3.68 M/mcL (4.19-5.50); Red Cell Distribution Width 13.4 % (11.5-14.5); Segmented Neutrophils % 53.1 %
[2017-01-09 05:17] LABS: Calcium 8.7 mg/dL (8.6-10.8)
--- NOTE | 2017-01-09 06:20 | Vascular/Endovasc Consult Note ---
Date of Encounter: 01/08/17 Time of Encounter: 16:00 Assessment and Plan (1) Carotid stenosis Status: Chronic The pathophysiology and natural history of carotid stenosis was discussed with the patient and all questions were answered. The patient rports a recent GI illness that resulted in nausea, vomiting and dehydation. He then experieinced dizziness. He reports that he is feeling better. He denies symptoms of CVA, TIA or amaurosis fugax. He is MRA reveals carotid stenosis. His stenosis is appears unrelated to his symptoms. A carotid duplex has been recommended at this time. The patinet will continue with ASA and Plavix. He will follow-up in vascular clinic. Qualifiers: Laterality: right Qualified Code(s): I65.21 - Occlusion and stenosis of right carotid artery (2) Type 2 diabetes mellitus Status: Chronic Qualifiers: Diabetes mellitus complication status: with hyperglycemia Diabetes mellitus shelter insulin use: with shelter use Qualified Code(s): E11.65 - Type 2 diabetes mellitus with hyperglycemia; Z79.4 - assisted (current) use of insulin (3) Acute kidney injury Status: Chronic (4) CAD (coronary artery disease) Status: Chronic Qualifiers: Coronary Disease-Associated Artery/Lesion type: [place] artery [place] vs. transplanted heart: [place] heart Associated angina: without angina Qualified Code(s): I25.10 - Atherosclerotic heart disease of [place] coronary artery without angina pectoris - History of Present Illness Consult date: 01/08/17 Requesting physician: Aleksey Fermin Consult reason: Carotid stenosis Chief complaint: Dizziness History of present illness: Mr. Gillette is a 76 year old male with a history of coronary artery disease, hypertension, hyperlipidemia, diabetes and chornic kidney disease who reports a recent gastrointestinal illness. He developed nausea and vomiting. he reports that he became dehydrated and then dizziy. He felt weak and had one fall. HE then came to the ER. He was thought to have a TIA. He was admitted and an MRI revealed a right side chronic infarct. His MRA also revealed right carotid artery stenosis. Vascular surgery was then consulted for further evaluation. The patient reports that he feels much better since admission. He denies any recent symptoms of CVA, TIA or amaurosis fugax. He denies chest pain or shortness of breath. Past Med Surg Social Fam HX - Past Medical History Medical history: coronary artery disease, dementia, diabetes, GERD, hyperlipidemia, hypertension, myocardial infarction, renal disease Psychiatric history: no psych history - Past Surgical History Surgical History: coronary bypass (CABG) - Social History Smoking Status: Never smoker Smokeless Tobacco Status: No Alcohol use: none Drug use: none - Family History Father Living Status: Cause of : heart problems Hx Family Cardiac Disorders: Yes Mother Living Status: Hx Family Cardiac Disorders: Yes Medications and Allergies Allopurinol [Zyloprim 100 MG] 100 mg PO DAILY 01/02/16 [History] Amlodipine Besylate 2.5 mg PO DAILY 01/02/16 [History] Aspirin Enteric Coated [Aspirin EC] 81 mg PO DAILY 01/02/16 [History] Atorvastatin [Lipitor] 40 mg PO HS 01/02/16 [History] Clopidogrel [Plavix] 75 mg PO DAILY 01/02/16 [History] Donepezil [Aricept] 10 mg PO HS 01/02/16 [History] Esomeprazole Magnesium [Nexium] 40 mg PO DAILY 01/02/16 [History] Fish Oil/Dha/Epa [Fish Oil 1,200 mg Fish Oil] 1 each PO BID 01/02/16 [History] Garlic [Odor Free Garlic] 100 mg PO DAILY 01/02/16 [History] GlipiZIDE XL (24 HR) [Glucotrol XL] 10 mg PO DAILY 01/02/16 [History] Insulin Glargine,Hum.rec.anlog [Lantus Solostar] 40 unit SQ HS 01/02/16 [History ] Losartan Potassium [Cozaar] 100 mg PO DAILY 01/02/16 [History] Metoprolol [Lopressor] 100 mg PO BID 01/02/16 [History] Ranitidine HCl [Zantac] 150 mg PO HS 01/02/16 [History] SitaGLIPtin [Januvia] 100 mg PO DAILY 01/02/16 [History] Cholecalciferol (Vitamin D3) [Vitamin D3] 5,000 unit PO DAILY 01/06/17 [History] Insulin LISPRO [Humalog Kwikpen U-100] 12 unit SQ TID 01/06/17 [History] Levomefolate/B6/B12/Algal Oil [Metanx Capsule] 1 each PO BID 01/06/17 [History] Sodium Bicarbonate 650 mg PO TID 01/06/17 [History] Tadalafil [Cialis] 5 mg PO DAILY 01/06/17 [History] Acetaminophen [Tylenol] 650 mg PO Q6HR PRN tab 01/09/17 [Rx] Docusate [Colace] 100 mg PO BID PRN 01/09/17 [Rx] Pregabalin [Lyrica] 150 mg PO BID #30 01/09/17 [Rx] Allergies Sulfa (Sulfonamide Antibiotics) Adverse Reaction (Verified 01/06/17 12:11) Anaphylaxis All Systems Review: A 10-system review of systems was performed and is negative for pertinent findings except as documented above in the HPI. - Constitutional Constitutional: no chills, no fever(s) - Cardiovascular Cardiovascular: lightheadedness, no chest pain at rest, no chest pain with exertion, no dyspnea at rest, no dyspnea on exertion Exam Vital Signs, Last 4 Hours Temp Pulse Resp BP Pulse Ox 01/09/17 03:46 97.7 F 56 18 162/79 94 General: Present: Conversant, No Apparent Distress HEENT: Present: Atraumatic, Pupils equal Neck: Absent: JVD, Lymphadenopathy, Tracheal deviation Cardiac: Present: Reg Rate and Rhythm, Normal S1 and S2 Lungs: Present: Normal Breath Sounds, No Wheeze, Rales, Rhonchi Neuro: Present: Alert and responsive, Motor nerves grossly intact, Sensory nerves grossly intact Abdomen: Present: Soft, Non-tender. Absent: Masses Vascular: Present: Normal capillary refill, Pulse, normal. Absent: Clubbing, Cyanosis, Edema Skin: Present: No rashes noted on visualized skin Consult Discharge Plan - Plan Instructions: Pregabalin (By mouth), Low Fat Diet (DC), Heart Healthy Diet (DC) , Ischemic Stroke (DC) Additional Instructions: Continue Aspirin and Plavix. Follow up with Neurologist in 1-2 weeks. Follow up with Vascular surgeon in 6 months. Referrals: Benny Jordan MD [Primary Care Provider] - 01/15/17 9:45 am Wade Lomeli MD [Partnered Physician] - 02/02/17 10:15 am Dariel Page DO [Partnered Physician] - 01/29/17 7:45 am Prescriptions: Pregabalin [Lyrica] 150 mg PO BID #30
[2017-01-09 07:48] VITALS: BP 159/74
[2017-01-09] MEDS: 0.9 % Sodium Chloride 1,000 ML IVC SCH (07:49)
--- NOTE | 2017-01-09 08:08 | Discharge Summary ---
<Meng Cano - Last Filed: 01/09/17 15:18> Date of Encounter: 01/09/17 Time of Encounter: 08:07 - Discharge Diagnosis (1) Acute CVA (cerebrovascular accident) Priority: Primary Status: Acute (2) Acute kidney injury Priority: Primary Status: Acute (3) Demand ischemia Priority: Primary Status: Acute (4) Falls Priority: Primary Status: Acute Qualifiers: Encounter type: initial encounter Qualified Code(s): W19.XXXA - Unspecified fall, initial encounter (5) Type 2 diabetes mellitus Priority: Secondary Status: Acute Qualifiers: Diabetes mellitus complication status: with hyperglycemia Diabetes mellitus usp insulin use: with usp use Qualified Code(s): E11.65 - Type 2 diabetes mellitus with hyperglycemia; Z79.4 - manager intermediate (current) use of insulin (6) DVT prophylaxis Priority: Primary Status: Acute - Discharge Medications Prescriptions: Pregabalin [Lyrica] 150 mg PO BID #30 Home Medications: Allopurinol [Zyloprim 100 MG] 100 mg PO DAILY 01/02/16 [History] Amlodipine Besylate 2.5 mg PO DAILY 01/02/16 [History] Aspirin Enteric Coated [Aspirin EC] 81 mg PO DAILY 01/02/16 [History] Atorvastatin [Lipitor] 40 mg PO HS 01/02/16 [History] Clopidogrel [Plavix] 75 mg PO DAILY 01/02/16 [History] Donepezil [Aricept] 10 mg PO HS 01/02/16 [History] Esomeprazole Magnesium [Nexium] 40 mg PO DAILY 01/02/16 [History] Fish Oil/Dha/Epa [Fish Oil 1,200 mg Fish Oil] 1 each PO BID 01/02/16 [History] Garlic [Odor Free Garlic] 100 mg PO DAILY 01/02/16 [History] GlipiZIDE XL (24 HR) [Glucotrol XL] 10 mg PO DAILY 01/02/16 [History] Insulin Glargine,Hum.rec.anlog [Lantus Solostar] 40 unit SQ HS 01/02/16 [History ] Losartan Potassium [Cozaar] 100 mg PO DAILY 01/02/16 [History] Metoprolol [Lopressor] 100 mg PO BID 01/02/16 [History] Ranitidine HCl [Zantac] 150 mg PO HS 01/02/16 [History] SitaGLIPtin [Januvia] 100 mg PO DAILY 01/02/16 [History] Cholecalciferol (Vitamin D3) [Vitamin D3] 5,000 unit PO DAILY 01/06/17 [History] Insulin LISPRO [Humalog Kwikpen U-100] 12 unit SQ TID 01/06/17 [History] Levomefolate/B6/B12/Algal Oil [Metanx Capsule] 1 each PO BID 01/06/17 [History] Sodium Bicarbonate 650 mg PO TID 01/06/17 [History] Tadalafil [Cialis] 5 mg PO DAILY 01/06/17 [History] Acetaminophen [Tylenol] 650 mg PO Q6HR PRN tab 01/09/17 [Rx] Docusate [Colace] 100 mg PO BID PRN 01/09/17 [Rx] Pregabalin [Lyrica] 150 mg PO BID #30 01/09/17 [Rx] Allergies/Adverse Reactions: Allergies Sulfa (Sulfonamide Antibiotics) Adverse Reaction (Verified 01/06/17 12:11) Anaphylaxis Procedures/tests Complete & Pending: Procedures Performed prior 72 hours Category Date Time Status EV carotid duplex imaging BI Stat Y 01/08/17 08:55 Completed EV echocardiogram Routine Y 01/07/17 00:02 Completed Date of admission: 01/06/17 18:47 Primary care physician: Benny Jordan MD Consults: 01/07/17 11:25 Consult to Target Developer [CONS] Routine Reason for SW Consult: Evaluation 01/08/17 08:10 Consult to Vascular Surgery [CONS] Routine Consulting Provider: Vascular Surgery [place] Reason for Consult: Right carotid stenosis, 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 Order2 Time Frame: 3 Months, Facility: [facility], Location: Rehab Services - Discharge Instructions Instructions: Pregabalin (By mouth), Low Fat Diet (DC), Heart Healthy Diet (DC) , Ischemic Stroke (DC) Follow Up With: Benny Jordan MD [Primary Care Provider] - 01/15/17 9:45 am Wade Lomeli MD [Partnered Physician] - 02/02/17 10:15 am Dariel Page DO [Partnered Physician] - 01/29/17 7:45 am Additional Instructions: Continue Aspirin and Plavix. Follow up with Neurologist in 1-2 weeks. Follow up with Vascular surgeon in 6 months. - Diet and Activity Activity: ambulate only with your walker Diet: low fat, low cholesterol Hospital course: Mr. Gillette is a 76 year old male with hypertension, hyperlipidemia, coronary artery disease status post CABG, type 2 diabetes, chronic kidney disease who presented to the emergency department complaining of dizziness, falls, nausea, vomiting, and uncontrolled blood sugar. Patient reports that last he started feeling ill with nausea, vomiting, and that he has not been taking his medication since he started feeling sick, including his insulin. He complains of generalized weakness, occasional lightheadedness, and reports he did fall once, but describes it as a mechanical fall slipping on some spilled water. He denied headache, chest pain, palpitations, shortness of breath, diarrhea, or increased swelling. Evaluation in the emergency department revealed blood sugar above 500. He appeared dehydrated with elevated BUN and creatinine. Hyponatremia with sodium 129, anion gap was 13. EKG showed sinus tachycardia with no acute ischemic changes. Initial troponin elevation 0.07 related to demand ischemia and dehydration. Subsequent troponins were negative 2. CT of abdomen and pelvis showed no acute process. MRI of the head showed a punctate acute infarct in the right middle frontal gyrus cortex, and a chronic infarct in the right frontal lobe. Patient was given fluids, insulin, and neurology and vascular surgery were consulted. Echo reveals LVEF 60%, and Right ICA revealed severe, 60-79% stenosis. Neurology recommended continuing atorvastatin, aspirin , and plavix. Vascular surgery recommended out patient follow up in 6 months. PT /OT recommended home health care 3 times per week upon discharge with 4 wheeled walker - Time Spent with Patient Total time spent providing and/or coordinating discharge services: - Constitutional Vitals: Temp Pulse Resp BP Pulse Ox 98.0 F 62 16 159/74 95 01/09/17 07:47 01/09/17 07:47 01/09/17 07:47 01/09/17 07:47 01/09/17 07:47 General appearance: Present: A&O X 3, pleasant, no acute distress, obese, answers questions appropriately - Head Head exam: Present: atraumatic, normocephalic - Eye Eye exam: Present: PERRL, conjuntiva pink, sclera anicteric Pupils: Present: PERRL - ENT ENT exam: Present: mucous membranes moist, normal oropharynx - Neck Neck exam general surgery: Present: supple, trachea midline. Absent: lymphadenopathy - Respiratory Respiratory exam: Present: CTAB. Absent: accessory muscle use, rales, rhonchi, wheezes - Cardiovascular Cardiovascular exam: Present: RRR, +S1, +S2. Absent: diastolic murmur, gallop, rubs, systolic murmur - GI/Abdominal GI/Abdominal exam: Present: normal bowel sounds, soft, no peritoneal signs. Absent: distended, tenderness - Extremities Exam Extremities exam: Present: warm, radial pulses palpable and symetrical. Absent : calf tenderness, cyanotic, pedal edema - Neurological Exam Neurological exam: Present: CN II-XII intact, oriented X3, no focal deficits. Absent: pronater drift, facial droop, speech deficit - Psychiatric Psychiatric exam: Present: normal affect, normal mood - Skin Skin exam: Present: dry, intact - VTE Documentation of Mechanical Device: Graduated compression elastic hosiery <Aleksey Fermin P - Last Filed: 01/09/17 17:30> Date of Encounter: 01/09/17 Procedures/tests Complete & Pending: Procedures Performed prior 72 hours Category Date Time Status EV carotid duplex imaging BI Stat Y 01/08/17 08:55 Completed EV echocardiogram Routine Y 01/07/17 00:02 Completed Date of admission: 01/06/17 18:47 Primary care physician: Benny Jordan MD Consults: 01/07/17 11:25 Consult to Target Developer [CONS] Routine Reason for SW Consult: Evaluation 01/08/17 08:10 Consult to Vascular Surgery [CONS] Routine Consulting Provider: Vascular Surgery [place] Reason for Consult: Right carotid stenosis, Recurrent CVA on ASA/ Plavix Time Notified: 08:30 Call Completed: Yes Hospital course: Mr. Gillette is a 76 year old male - Time Spent with Patient Total time spent providing and/or coordinating discharge services: - Constitutional Vitals: Temp Pulse Resp BP Pulse Ox 98.0 F 62 16 159/74 95 01/09/17 07:47 01/09/17 07:47 01/09/17 07:47 01/09/17 07:47 01/09/17 07:47 - Attending Attestation I examined this patient and my medical decision-making was reviewed with the Resident Physician. I agree with the documented findings, disposition and treatment plan as described except to the extent set forth below.
--- NOTE | 2017-01-09 08:19 | Physician Discharge Referral ---
<AilynhayleeMeng - Last Filed: 01/09/17 08:12> Home Health/Hosp Referral Info Transfer to: Home Health Attending Provider: Aleksey Fermin Provider in Charge Post Discharge: PCP - Diagnosis (1) Acute CVA (cerebrovascular accident) Priority: Primary Status: Acute (2) Acute kidney injury Priority: Primary Status: Acute (3) Demand ischemia Priority: Primary Status: Acute (4) Falls Priority: Primary Status: Acute (5) Type 2 diabetes mellitus Priority: Secondary Status: Acute (6) DVT prophylaxis Priority: Primary Status: Acute - Respiratory Orders Smoking Cessation: Smoking cessation has been advised. For more information, call the [place] Tobacco Quit Line at 0-535-PAAR-NOW. - Diet/Nutrition Diet/Nutrition Orders: Cardiac - Activity Activity Orders: Walker (Four wheeled walker) - Services Needed Following services are medically necessary services: Nursing, Home Health Aide, Physical Therapy, Occupational Therapy - Transfer Medications Prescriptions: Pregabalin [Lyrica] 150 mg PO BID #30 Home Medications: Allopurinol [Zyloprim 100 MG] 100 mg PO DAILY 01/02/16 [History] Amlodipine Besylate 2.5 mg PO DAILY 01/02/16 [History] Aspirin Enteric Coated [Aspirin EC] 81 mg PO DAILY 01/02/16 [History] Atorvastatin [Lipitor] 40 mg PO HS 01/02/16 [History] Clopidogrel [Plavix] 75 mg PO DAILY 01/02/16 [History] Donepezil [Aricept] 10 mg PO HS 01/02/16 [History] Esomeprazole Magnesium [Nexium] 40 mg PO DAILY 01/02/16 [History] Fish Oil/Dha/Epa [Fish Oil 1,200 mg Fish Oil] 1 each PO BID 01/02/16 [History] Garlic [Odor Free Garlic] 100 mg PO DAILY 01/02/16 [History] GlipiZIDE XL (24 HR) [Glucotrol XL] 10 mg PO DAILY 01/02/16 [History] Insulin Glargine,Hum.rec.anlog [Lantus Solostar] 40 unit SQ HS 01/02/16 [History ] Losartan Potassium [Cozaar] 100 mg PO DAILY 01/02/16 [History] Metoprolol [Lopressor] 100 mg PO BID 01/02/16 [History] Ranitidine HCl [Zantac] 150 mg PO HS 01/02/16 [History] SitaGLIPtin [Januvia] 100 mg PO DAILY 01/02/16 [History] Cholecalciferol (Vitamin D3) [Vitamin D3] 5,000 unit PO DAILY 01/06/17 [History] Insulin LISPRO [Humalog Kwikpen U-100] 12 unit SQ TID 01/06/17 [History] Levomefolate/B6/B12/Algal Oil [Metanx Capsule] 1 each PO BID 01/06/17 [History] Sodium Bicarbonate 650 mg PO TID 01/06/17 [History] Tadalafil [Cialis] 5 mg PO DAILY 01/06/17 [History] Acetaminophen [Tylenol] 650 mg PO Q6HR PRN tab 01/09/17 [Rx] Docusate [Colace] 100 mg PO BID PRN 01/09/17 [Rx] Pregabalin [Lyrica] 150 mg PO BID #30 01/09/17 [Rx] Allergies/Adverse Reactions: Allergies Sulfa (Sulfonamide Antibiotics) Adverse Reaction (Verified 01/06/17 12:11) Anaphylaxis Certification: Further, I certify that my clinical findings support that this patient is homebound (i.e. absences from home require considerable and taxing effort and are for medical reasons or [facility] services or infrequently or short duration when for other reasons) because: Homebound Reason: Patient requires assistance of a person or device to safely leave home, Leaving home requires considerable and taxing effort due to condition Attestation: My signature below is to certify that this patient is under my care and that I, or nurse practitioner, or a physician's fleet administrative assistant working with me, has a face-to -face encounter with this patient. <Aleksey Fermin P - Last Filed: 01/09/17 17:30> - Respiratory Orders Smoking Cessation: Smoking cessation has been advised. For more information, call the [place] Tobacco Quit Line at 9-215-LCAE-NOW. Certification: Further, I certify that my clinical findings support that this patient is homebound (i.e. absences from home require considerable and taxing effort and are for medical reasons or [facility] services or infrequently or short duration when for other reasons) because: Attestation: My signature below is to certify that this patient is under my care and that I, or nurse practitioner, or a physician's fleet administrative assistant working with me, has a face-to -face encounter with this patient.
--- NOTE | 2017-01-09 18:52 | Vascular/[facility] Progress Note ---
Date of Encounter: 01/09/17 Time of Encounter: 08:15 - Assessment and plan (1) Carotid stenosis Status: Chronic The patient has an asymptomatic 60-79% NICK stenosis. His velocities are at the midpoint of the range. He has an old right hemispheric CVA identified on MRI. He denies recent symptoms of CVA, TIA or amaurosis fugax. He was advised to seek medical attention if symptoms occur. He will continue with ASA and Plavix. He will follow-up in vascular clinic in 6 months with a repeat carotid duplex. Qualifiers: Laterality: right Qualified Code(s): I65.21 - Occlusion and stenosis of right carotid artery (2) Type 2 diabetes mellitus Status: Chronic He was counseled regardign atheorsclerotic risk factor reduction. Qualifiers: Diabetes mellitus complication status: with hyperglycemia Diabetes mellitus snf insulin use: with continuous churn buttermaker use Qualified Code(s): E11.65 - Type 2 diabetes mellitus with hyperglycemia; Z79.4 - terminal system operator (current) use of insulin (3) Acute kidney injury Status: Chronic (4) CAD (coronary artery disease) Status: Chronic Qualifiers: Coronary Disease-Associated Artery/Lesion type: [place] artery [place] vs. transplanted heart: [place] heart Associated angina: without angina Qualified Code(s): I25.10 - Atherosclerotic heart disease of [place] coronary artery without angina pectoris - Subjective Interval history: The patient denies any new issues overnight. He reports that he is feeling well. He denies symptoms of CVA, TIA or amaurosis fugax. HE denies chest pain or shortness of breath. - Physical Examination General: Present: Conversant HEENT: Present: Atraumatic Neck: Present: Right Carotid bruit. Absent: JVD Cardiac: Present: Reg Rate and Rhythm Lungs: Present: Normal Breath Sounds, No Wheeze, Rales, Rhonchi Neuro: Present: Alert and responsive, No focal deficits noted, Motor nerves grossly intact, Sensory nerves grossly intact Vascular: Present: Normal capillary refill. Absent: Cyanosis, Edema Abdomen: Present: Soft, Non-tender. Absent: Masses Skin: Present: No rashes noted on visualized skin - VTE Documentation of Mechanical Device: Graduated compression elastic hosiery Results 01/09/17 04:41 01/09/17 04:41 Lab Results, Last 24 hours 01/09/17 01/09/17 04:41 04:41 WBC 8.3 Hgb 11.1 L Hct 32.7 L Plt Count 151 Sodium 139 Potassium 4.0 Chloride 109 Carbon Dioxide 21 BUN 31 H Creatinine 1.78 H Glucose 121 H Calcium 8.7 - Imaging / Other Tests Non Invasive Vascular Testing: report reviewed, image reviewed (NICK 60-79% stenosis, LICA no signfiicant stenosis) Consult Discharge Plan - Plan Instructions: Pregabalin (By mouth), Low Fat Diet (DC), Heart Healthy Diet (DC) , Ischemic Stroke (DC) Additional Instructions: Continue Aspirin and Plavix. Follow up with Neurologist in 1-2 weeks. Follow up with Vascular surgeon in 6 months. Referrals: Benny Jordan MD [Primary Care Provider] - 01/15/17 9:45 am Wade Lomeli MD [Partnered Physician] - 02/02/17 10:15 am Dariel Page DO [Partnered Physician] - 01/29/17 7:45 am Prescriptions: Pregabalin [Lyrica] 150 mg PO BID #30
== END 2017-01-09 13:06 | disposition home health service (06) | DRG 65 ==
LOC: 3BNU 12:03 → EMEROO 12:03 → 3BNU 19:40
PROVIDERS: ADMIT Internal Medicine; ATTEND Registered Nurse

== ENCOUNTER 2017-04-28 11:22 | Inpatient (IN) ==
[2017-04-28] MEDS ORDERED: Ondansetron 4 MG/2 ML VIAL IVP ONE (11:38)
[2017-04-28] MEDS ORDERED: 0.9 % Sodium Chloride 500 ML IVC ONE (11:38)
--- NOTE | 2017-04-28 11:50 | Emergency Department Note ---
Disposition Clinical Impression: PANCHITO (acute kidney injury), Weakness generalized DKA (diabetic ketoacidoses) Qualifiers: Diabetes mellitus type: type 2 Diabetes mellitus complication detail: without coma Qualified Code(s): E13.10 - Other specified diabetes mellitus with ketoacidosis without coma Disposition: Admitted As Inpatient Condition: Fair Referrals: Benny Jordan MD [Primary Care Provider] - Forms: ED Satisfaction Letter Time of Disposition: 13:42 General Adult HPI - General Chief complaint: ED Dizziness Stated complaint: sick x 2 days/ hurts all over Time Seen by Provider: 04/28/17 11:37 Source: patient, family Limitations: no limitations Nursing Notes Reviewed: Yes Vital Signs Reviewed: Yes - History of Present Illness HPI Narrative: History of present illness: 77-year-old male insulin-dependent diabetic presents with 2 days of nausea vomiting abdominal distention and decreased appetite with weakness worse over the past day. Arrives with an Accu-Chek greater than 600. Denies chest or abdominal pain. Has had 1 day of dark stools per patient and spouse at bedside. Patient denies ill contacts exotic food or recent travel. No significant past surgical history as well as intra-abdominally. He does have a significant cardiac history with heart surgery and cardiac stents Pain Scale: 7 - Related Data Home Medications Medication Instructions Recorded Confirmed Allopurinol [Zyloprim 100 MG] 100 mg PO DAILY 01/02/16 01/30/17 Amlodipine Besylate 2.5 mg PO DAILY 01/02/16 01/30/17 Aspirin Enteric Coated [Aspirin EC] 81 mg PO DAILY 01/02/16 01/30/17 Atorvastatin [Lipitor] 40 mg PO HS 01/02/16 01/30/17 Clopidogrel [Plavix] 75 mg PO DAILY 01/02/16 01/30/17 Donepezil [Aricept] 10 mg PO HS 01/02/16 01/30/17 Esomeprazole Magnesium [Nexium] 40 mg PO DAILY 01/02/16 01/30/17 Fish Oil/Dha/Epa [Fish Oil 1,200 1 each PO BID 01/02/16 01/30/17 mg Fish Oil] Garlic [Odor Free Garlic] 100 mg PO DAILY 01/02/16 01/30/17 GlipiZIDE XL (24 HR) [Glucotrol XL] 10 mg PO DAILY 01/02/16 01/30/17 Insulin Glargine,Hum.rec.anlog 40 unit SQ HS 01/02/16 01/30/17 [Lantus Solostar] Losartan Potassium [Cozaar] 100 mg PO DAILY 01/02/16 01/30/17 Metoprolol [Lopressor] 100 mg PO BID 01/02/16 01/30/17 Ranitidine HCl [Zantac] 150 mg PO HS 01/02/16 01/30/17 SitaGLIPtin [Januvia] 100 mg PO DAILY 01/02/16 01/30/17 Cholecalciferol (Vitamin D3) 5,000 unit PO DAILY 01/06/17 01/30/17 [Vitamin D3] Insulin LISPRO [Humalog Kwikpen 12 unit SQ TID 01/06/17 01/30/17 U-100] Levomefolate/B6/B12/Algal Oil 1 each PO BID 01/06/17 01/30/17 [Metanx Capsule] Sodium Bicarbonate 650 mg PO TID 01/06/17 01/30/17 Tadalafil [Cialis] 5 mg PO DAILY 01/06/17 01/30/17 Previous Rx's Medication Instructions Recorded Acetaminophen [Tylenol] 650 mg PO Q6HR PRN tab 01/09/17 Docusate [Colace] 100 mg PO BID PRN 01/09/17 Pregabalin [Lyrica] 150 mg PO BID #30 01/09/17 Allergies Allergy/AdvReac Type Severity Reaction Status Date / Time Sulfa (Sulfonamide Allergy Anaphylaxis Verified 04/28/17 11:30 Antibiotics) All systems ED: reviewed and negative except as stated. Constitutional: Reports: weakness Gastrointestinal: Reports: nausea, vomiting, diarrhea, other (Dark stools for the past day) Past Medical History - Past Medical History Source: patient, old records reviewed, obtained from family Medical history: Reports: non-contributory, arthritis, coronary artery disease, CVA, diabetes, hyperlipidemia, hypertension, myocardial infarction, renal disease Surgical history: Reports: cancer surgery, coronary bypass (CABG), orthopedic, other Psychiatric history: Reports: no psych history - Social History Smoking Status: Former smoker Smokeless Tobacco Status: No Alcohol use: Reports: none Drug use: Reports: none Physical Exam - General Limitations: no limitations General appearance: alert, in distress - Head Head exam: atraumatic, normocephalic - Eye Eye exam: Present: normal appearance, PERRL, EOMI - ENT ENT exam: mucous membranes dry - Neck Neck exam: Present: normal inspection, full ROM, trachea midline - Chest Chest inspection: Present: normal inspection, symmetric chest wall rise - Respiratory Respiratory exam: Present: normal lung sounds bilaterally - Cardiovascular Cardiovascular exam: Present: normal rhythm, tachycardia - Abdominal Exam Abdominal exam: Present: tenderness, distention, diminished bowel sounds. 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 [employer]) - Male exam: Present: normal inspection - Extremities Exam Extremities exam: Present: normal inspection, full ROM - Expanded Lower Extremity Exam Neurovascular/Tendon exam: Present: normal capillary refill Gait: not tested/not observed - Back Exam Back exam: Present: normal inspection, full ROM - Neurological Exam Neurological exam: Present: alert, oriented X3, CN II-XII intact - Psychiatric Psychiatric exam: Present: normal affect, normal mood - Skin Skin exam: Present: warm, dry, pallor Course - Reevaluation(s) Reevaluation #1: Patient elevated blood sugar abdominal distention with rebounding tenderness. Certainly and then he had bilious vomiting after we finished the exam consistent with possible follow-up obstruction. Patient is slightly pale as well. We will be getting a fecal occult blood test, IV fluid, antiemetics screening labs and abdominopelvic CT. Disposition pending with admission anticipated. Providing 45 minutes of critical care services for this patient. Time: 11:56 Reevaluation #2: 5 bilaterally for several critical lab values: Patient's creatinine is 2.97 hies sever pain, troponin 0.09 critically elevated, glucose is 700+ critically elevated, calcium 13+ elevated, lactic acid 7+ critically elevated. I shared the patient's critical labs with the patient and his spouse at bedside. We are instituting sepsis bundle protocol patient is getting an addition timed lactic acid 2 L normal saline bolus second IV placed waiting for results of abdominal pelvic CT and likely admission to the ICU. The results abdominal pelvic CT read by radiology showed no acute process or abnormality in the abdominal pelvic area. This strengthens the likelihood that this is likely diabetic ketoacidosis with resultant possible gastroparesis. Disposition pending. Time: 12:42 Reevaluation #3: Serum ketones came back greater than 2 which is highly elevated. DKA is the diagnosis at this time. Along with possible N STEMI. A VBG results to guide disposition of ICU versus stepdown. . Time: 13:19 - Consultations Consultation #1: VBG results came back in actually essentially within normal limits. Discussed case with the stain dipper who stated with the patient's current clinical condition and lab values that stepdown bed would be appropriate. Discussed case with Dr. Catalan who is in the emergency department graciously accepted the patient for admission to 2 . Admission orders placed. Patient and spouse on form. Patient to be admitted for acute DKA, and STEMI, acute on chronic renal insufficiency. Time: 13:41 Vital Signs Temperature 98.2 F 04/28/17 11:26 Pulse Rate 134 04/28/17 11:26 Respiratory Rate 20 04/28/17 11:26 Blood Pressure 175/84 04/28/17 11:26 O2 Sat by Pulse Oximetry 97 04/28/17 11:26 Temperature 98.2 F 04/28/17 11:26 Pulse Rate 120 04/28/17 11:57 Respiratory Rate 18 04/28/17 11:57 Blood Pressure 175/84 04/28/17 11:26 O2 Sat by Pulse Oximetry 95 04/28/17 11:57 Oxygen Delivery Oxygen Delivery Room Air Medical Decision Making - Medical Records Medical records reviewed: Yes I reviewed the patient's medical records. - Lab Data Lab results reviewed: Yes I reviewed the patient's lab results. Result diagrams: 04/28/17 11:52 04/28/17 11:52 Lab Results 04/28/17 04/28/17 04/28/17 Range/Units 11:27 11:29 11:52 WBC (4.3-11.1) K/mcL RBC (4.19-5.50) M/mcL Hgb (12.9-16.9) g/dL Hct (37.5-50.1) % MCV (83.0-100.0) fL MCH (28.0-33.3) pg MCHC (31.6-35.5) g/dL RDW (11.5-14.5) % Plt Count (140-400) K/mcL MPV (9.4-12.4) fL Immature Gran % (0-4) % Seg Neutrophils % % Lymphocytes % % Monocytes % % Eosinophils % % Basophils % % Neutrophils # (1.6-8.9) K/mcL Lymphocytes # (0.6-4.6) K/mcL Monocytes # (0.0-1.3) K/mcL Eosinophils # (0.0-0.6) K/mcL Basophils # (0.0-0.2) K/mcL PT (9.4-12.1) Seconds INR APTT (26.0-36.0) Seconds VBG pH (7.32-7.42) pH Units VBG pCO2 (41-51) mmHg VBG pO2 (25-50) mmHg VBG HCO3 (21-27) mEq/L Sodium 134 L (136-145) mEq/L Potassium 5.7 H (3.5-4.5) mEq/L Chloride 89 L (98-109) mEq/L Carbon Dioxide 19 (19-29) mEq/L BUN 30 H (8-26) mg/dL Creatinine 2.97 H (0.72-1.25) mg/dL Est GFR ( Amer) 25 L (> 60) Est GFR (Non-Af Amer) 21 L (> 60) BUN/Creatinine Ratio 10 (6-26) Glucose 780 H* (70-99) mg/dL POC Glucose > 600 H* > 600 H* (58-89) Calculated Osmolality 322 H (280-300) Lactic Acid (0.5-2.2) mmol/L Calcium 13.0 H* (8.6-10.8) mg/dL Phosphorus (2.3-4.7) mg/dL Magnesium (1.6-2.6) mg/dL Total Bilirubin 0.7 (0.2-1.2) mg/dL Direct Bilirubin 0.2 (0.0-0.5) mg/dL Indirect Bilirubin 0.5 (0.0-1.2) mg/dL AST 24 (5-34) Units/L ALT 39 (0-55) Units/L Alkaline Phosphatase 102 (38-126) Units/L Troponin I (0-0.03) ng/mL Serum Total Protein 8.4 H (6.0-8.3) g/dL Albumin 3.9 (3.5-5.0) g/dL Globulin 4.5 H (2.4-3.5) g/dL Albumin/Globulin Ratio 0.9 L (1.1-2.2) Lipase 28 (8-78) Units/L Beta-Hydroxybutyric Acd (0.02-0.27) mmol/L Stool Occult Blood (Negative) 04/28/17 04/28/17 04/28/17 Range/Units 11:52 11:52 11:52 WBC 15.6 H (4.3-11.1) K/mcL RBC 4.30 (4.19-5.50) M/mcL Hgb 13.3 (12.9-16.9) g/dL Hct 39.8 (37.5-50.1) % MCV 92.6 (83.0-100.0) fL MCH 30.9 (28.0-33.3) pg MCHC 33.4 (31.6-35.5) g/dL RDW 13.6 (11.5-14.5) % Plt Count 257 (140-400) K/mcL MPV 12.7 H (9.4-12.4) fL Immature Gran % 0.6 (0-4) % Seg Neutrophils % 87.6 % Lymphocytes % 7.3 % Monocytes % 4.2 % Eosinophils % 0.0 % Basophils % 0.3 % Neutrophils # 13.7 H (1.6-8.9) K/mcL Lymphocytes # 1.1 (0.6-4.6) K/mcL Monocytes # 0.7 (0.0-1.3) K/mcL Eosinophils # 0.0 (0.0-0.6) K/mcL Basophils # 0.0 (0.0-0.2) K/mcL PT (9.4-12.1) Seconds INR APTT (26.0-36.0) Seconds VBG pH (7.32-7.42) pH Units VBG pCO2 (41-51) mmHg VBG pO2 (25-50) mmHg VBG HCO3 (21-27) mEq/L Sodium (136-145) mEq/L Potassium (3.5-4.5) mEq/L Chloride (98-109) mEq/L Carbon Dioxide (19-29) mEq/L BUN (8-26) mg/dL Creatinine (0.72-1.25) mg/dL Est GFR ( Amer) (> 60) Est GFR (Non-Af Amer) (> 60) BUN/Creatinine Ratio (6-26) Glucose (70-99) mg/dL POC Glucose (58-89) Calculated Osmolality (280-300) Lactic Acid 7.6 H* (0.5-2.2) mmol/L Calcium (8.6-10.8) mg/dL Phosphorus (2.3-4.7) mg/dL Magnesium (1.6-2.6) mg/dL Total Bilirubin (0.2-1.2) mg/dL Direct Bilirubin (0.0-0.5) mg/dL Indirect Bilirubin (0.0-1.2) mg/dL AST (5-34) Units/L ALT (0-55) Units/L Alkaline Phosphatase (38-126) Units/L Troponin I 0.09 H* (0-0.03) ng/mL Serum Total Protein (6.0-8.3) g/dL Albumin (3.5-5.0) g/dL Globulin (2.4-3.5) g/dL Albumin/Globulin Ratio (1.1-2.2) Lipase (8-78) Units/L Beta-Hydroxybutyric Acd (0.02-0.27) mmol/L Stool Occult Blood (Negative) 04/28/17 04/28/17 04/28/17 Range/Units 11:52 12:24 12:57 WBC (4.3-11.1) K/mcL RBC (4.19-5.50) M/mcL Hgb (12.9-16.9) g/dL Hct (37.5-50.1) % MCV (83.0-100.0) fL MCH (28.0-33.3) pg MCHC (31.6-35.5) g/dL RDW (11.5-14.5) % Plt Count (140-400) K/mcL MPV (9.4-12.4) fL Immature Gran % (0-4) % Seg Neutrophils % % Lymphocytes % % Monocytes % % Eosinophils % % Basophils % % Neutrophils # (1.6-8.9) K/mcL Lymphocytes # (0.6-4.6) K/mcL Monocytes # (0.0-1.3) K/mcL Eosinophils # (0.0-0.6) K/mcL Basophils # (0.0-0.2) K/mcL PT 12.6 H (9.4-12.1) Seconds INR 1.2 APTT 40.6 H (26.0-36.0) Seconds VBG pH (7.32-7.42) pH Units VBG pCO2 (41-51) mmHg VBG pO2 (25-50) mmHg VBG HCO3 (21-27) mEq/L Sodium (136-145) mEq/L Potassium (3.5-4.5) mEq/L Chloride (98-109) mEq/L Carbon Dioxide (19-29) mEq/L BUN (8-26) mg/dL Creatinine (0.72-1.25) mg/dL Est GFR ( Amer) (> 60) Est GFR (Non-Af Amer) (> 60) BUN/Creatinine Ratio (6-26) Glucose (70-99) mg/dL POC Glucose (58-89) Calculated Osmolality (280-300) Lactic Acid (0.5-2.2) mmol/L Calcium (8.6-10.8) mg/dL Phosphorus (2.3-4.7) mg/dL Magnesium (1.6-2.6) mg/dL Total Bilirubin (0.2-1.2) mg/dL Direct Bilirubin (0.0-0.5) mg/dL Indirect Bilirubin (0.0-1.2) mg/dL AST (5-34) Units/L ALT (0-55) Units/L Alkaline Phosphatase (38-126) Units/L Troponin I (0-0.03) ng/mL Serum Total Protein (6.0-8.3) g/dL Albumin (3.5-5.0) g/dL Globulin (2.4-3.5) g/dL Albumin/Globulin Ratio (1.1-2.2) Lipase (8-78) Units/L Beta-Hydroxybutyric Acd > 2.00 H (0.02-0.27) mmol/L Stool Occult Blood Negative (Negative) 04/28/17 04/28/17 Range/Units 12:57 13:17 WBC (4.3-11.1) K/mcL RBC (4.19-5.50) M/mcL Hgb (12.9-16.9) g/dL Hct (37.5-50.1) % MCV (83.0-100.0) fL MCH (28.0-33.3) pg MCHC (31.6-35.5) g/dL RDW (11.5-14.5) % Plt Count (140-400) K/mcL MPV (9.4-12.4) fL Immature Gran % (0-4) % Seg Neutrophils % % Lymphocytes % % Monocytes % % Eosinophils % % Basophils % % Neutrophils # (1.6-8.9) K/mcL Lymphocytes # (0.6-4.6) K/mcL Monocytes # (0.0-1.3) K/mcL Eosinophils # (0.0-0.6) K/mcL Basophils # (0.0-0.2) K/mcL PT (9.4-12.1) Seconds INR APTT (26.0-36.0) Seconds VBG pH 7.42 (7.32-7.42) pH Units VBG pCO2 35 L (41-51) mmHg VBG pO2 190 H (25-50) mmHg VBG HCO3 23 (21-27) mEq/L Sodium (136-145) mEq/L Potassium (3.5-4.5) mEq/L Chloride (98-109) mEq/L Carbon Dioxide (19-29) mEq/L BUN (8-26) mg/dL Creatinine (0.72-1.25) mg/dL Est GFR ( Amer) (> 60) Est GFR (Non-Af Amer) (> 60) BUN/Creatinine Ratio (6-26) Glucose (70-99) mg/dL POC Glucose (58-89) Calculated Osmolality (280-300) Lactic Acid (0.5-2.2) mmol/L Calcium (8.6-10.8) mg/dL Phosphorus 5.2 H (2.3-4.7) mg/dL Magnesium 0.9 L (1.6-2.6) mg/dL Total Bilirubin (0.2-1.2) mg/dL Direct Bilirubin (0.0-0.5) mg/dL Indirect Bilirubin (0.0-1.2) mg/dL AST (5-34) Units/L ALT (0-55) Units/L Alkaline Phosphatase (38-126) Units/L Troponin I (0-0.03) ng/mL Serum Total Protein (6.0-8.3) g/dL Albumin (3.5-5.0) g/dL Globulin (2.4-3.5) g/dL Albumin/Globulin Ratio (1.1-2.2) Lipase (8-78) Units/L Beta-Hydroxybutyric Acd (0.02-0.27) mmol/L Stool Occult Blood (Negative) - Radiology Data Radiology results reviewed: Yes I reviewed the patient's radiology results. - EKG Data EKG #1 EKG attestation: Yes I reviewed and interpreted this EKG. EKG results narrative: Twelve-lead EKG interpreted without cardiology shows the following: Sinus tachycardia at [address] intervals and normal QRS and normal QT corrected. There is some mild lateral ST depression in V4 5 and 6 this is new compared to a prior EKG 01/06/2017
[2017-04-28 12:03] LABS: Basophils % 0.3 %; Hematocrit 39.8 % (37.5-50.1); Hemoglobin 13.3 g/dL (12.9-16.9); Immature Granulocytes % 0.6 % (0-4); Lymphocytes # 1.1 K/mcL (0.6-4.6); Lymphocytes % 7.3 %; Mean Corpuscular HGB Conc 33.4 g/dL (31.6-35.5); Mean Corpuscular Hemoglobin 30.9 pg (28.0-33.3); Mean Corpuscular Volume 92.6 fL (83.0-100.0); Mean Platelet Volume 12.7 fL (9.4-12.4); Monocytes # 0.7 K/mcL (0.0-1.3); Monocytes % 4.2 %; Neutrophils # 13.7 K/mcL (1.6-8.9); Platelet Count 257 K/mcL (140-400); Red Cell Distribution Width 13.6 % (11.5-14.5); Segmented Neutrophils % 87.6 %
[2017-04-28 12:22] LABS: Albumin 3.9 g/dL (3.5-5.0); Albumin/Globulin Ratio 0.9 (1.1-2.2); Bilirubin,Direct 0.2 mg/dL (0.0-0.5); Bilirubin,Indirect 0.5 mg/dL (0.0-1.2); Bilirubin,Total 0.7 mg/dL (0.2-1.2); Globulin 4.5 g/dL (2.4-3.5); Potassium 5.7 mEq/L (3.5-4.5); Total Protein 8.4 g/dL (6.0-8.3)
[2017-04-28 13:12] LABS: INR 1.2; Prothrombin Time 12.6 Seconds (9.4-12.1)
[2017-04-28 13:15] LABS: Activated Partial Thrombo Time 40.6 Seconds (26.0-36.0)
[2017-04-28] MEDS ORDERED: Insulin Human Regular 100 UNIT in 0.9 % Sodium Chloride 100 ML IVC SCH ×2 (13:15→21:45)
[2017-04-28 13:22] LABS: Magnesium 0.9 mg/dL (1.6-2.6); Phosphorous 5.2 mg/dL (2.3-4.7)
[2017-04-28 13:22] LABS: VBG HCO3 23 mEq/L (21-27); VBG PCO2 35 mmHg (41-51); VBG PH 7.42 pH Units (7.32-7.42); VBG PO2 190 mmHg (25-50)
[2017-04-28] MEDS: 0.9 % Sodium Chloride 1,000 ML IVC SCH ×2 (13:33→21:36)
[2017-04-28 14:27] LABS: Bilirubin,Urine Negative (Negative); Blood,Urine Small (Negative); Clarity,Urine Clear (Clear); Color,Urine Yellow (Yellow); Glucose,Urine (UA) >=1000 mg/dL (Normal); Ketones,Urine 40 mg/dL (Negative); Leukocyte Esterase,Urine Negative (Negative); Nitrite,Urine Negative (Negative); Protein,Urine 100 mg/dL (Neg-Trace); Specific Gravity,Urine > 1.030 (1.010-1.025); Urobilinogen,Urine Normal (Normal)
[2017-04-28 14:29] LABS: Bacteria,Urine None Seen per hpf (None-Few); Hyaline Casts,Urine None Seen per lpf (None-Few); RBC,Urine 0-3 per hpf (0-3); Squamous Epithelial Cell,Urine Few per lpf (None-Few); WBC,Urine 0-3 per hpf (0-3)
[2017-04-28] MEDS ORDERED: Naloxone 0.4 MG/ML INJ IVP PRN (14:52)
[2017-04-28] MEDS ORDERED: Ondansetron 4 MG/2 ML VIAL IVP PRN (14:52)
[2017-04-28] MEDS ORDERED: Acetaminophen 325 MG TABLET PO PRN (14:52)
[2017-04-28] MEDS: Insulin Human Regular 100 UNIT in 0.9 % Sodium Chloride 100 ML IVC SCH ×2 (16:04→23:56)
--- NOTE | 2017-04-28 16:12 | Internal Med History&Physical ---
Date of Encounter: 04/28/17 Time of Encounter: 14:00 Assessment and Plan (1) Secondary diabetes with hyperglycemia hyperosmolar non-ketotic coma Current visit: Yes Status: Acute 1 patient was confused upon presentation he had a blood sugar of 780 VBG pH 7.42 lactate was 7.6 anion gap was 26. He was given IV fluids as well as started on insulin drip. Accu-Cheks every hour we will recheck his lab work and adjust fluids We will recheck lactat White count was 15.6 ensure there is underlying infectious process or this related to HH NK. The cultures have been obtained and will start on empiric antibiotic coverage urine is negative will obtain chest x-ray (2) Elevated troponin Current visit: No Status: Acute Troponin is 0.08 suspect this may be related to demand ischemia secondary to hyperglycemia. Patient denies any chest pain or shortness of breath We will trend troponins (3) Acute kidney injury Current visit: Yes Status: Chronic (4) DVT prophylaxis Current visit: No Status: Acute Heparin subcutaneous Internal Medicine - H&P: HPI Chief complaint: N V Admitted From: Emergency Dept Plans for Post Hospital Care: Home History of present illness: Mr. Gillette is a 77 year old male PMH of HTN CAD with CABG AND STENT PLACEMENT DM CKD CVA . According to the right patient has been experiencing nausea and vomiting since Thursday. Denies any fevers chills or diarrhea. He does have diffuse abdominal pain. He did have 1 day of dark stools however denies any hematemesis or hematochezia. He is a diabetic she states his blood sugars have been running around 200. Denies any cough shortness of breath or chest pain. He presented to the ER with the above complaints upon presentation patient's glucose was 780 lactate was 1.6, VBG no acidosis Anion Gap 26 occult stool was negative. CT of abd negative for any acute process He was given IV fluids and placed on Insulin gtt. He was admitted for further workup and evaluation . Presently he is hemodynamically stable. Past Med Surg Social Fam HX - Past Medical History Medical history: non-contributory, arthritis, coronary artery disease, CVA, diabetes, hyperlipidemia, hypertension, myocardial infarction, renal disease Psychiatric history: no psych history - Past Surgical History Surgical History: cancer surgery, coronary bypass (CABG), orthopedic, other - Social History Smoking Status: Former smoker Smokeless Tobacco Status: No Alcohol use: none Drug use: none - Family History Father Living Status: Hx Family Cardiac Disorders: Yes Mother Living Status: Hx Family Cardiac Disorders: Yes Internal Medicine - H&P: Meds Allopurinol [Zyloprim 100 MG] 100 mg PO DAILY 01/02/16 [History] Amlodipine Besylate 2.5 mg PO DAILY 01/02/16 [History] Aspirin Enteric Coated [Aspirin EC] 81 mg PO DAILY 01/02/16 [History] Atorvastatin [Lipitor] 40 mg PO HS 01/02/16 [History] Clopidogrel [Plavix] 75 mg PO DAILY 01/02/16 [History] Donepezil [Aricept] 10 mg PO HS 01/02/16 [History] Esomeprazole Magnesium [Nexium] 40 mg PO DAILY 01/02/16 [History] Fish Oil/Dha/Epa [Fish Oil 1,200 mg Fish Oil] 1 each PO BID 01/02/16 [History] Garlic [Odor Free Garlic] 100 mg PO DAILY 01/02/16 [History] GlipiZIDE XL (24 HR) [Glucotrol XL] 10 mg PO DAILY 01/02/16 [History] Insulin Glargine,Hum.rec.anlog [Lantus Solostar] 40 unit SQ HS 01/02/16 [History ] Losartan Potassium [Cozaar] 100 mg PO DAILY 01/02/16 [History] Metoprolol [Lopressor] 100 mg PO BID 01/02/16 [History] Ranitidine HCl [Zantac] 150 mg PO HS 01/02/16 [History] SitaGLIPtin [Januvia] 100 mg PO DAILY 01/02/16 [History] Cholecalciferol (Vitamin D3) [Vitamin D3] 5,000 unit PO DAILY 01/06/17 [History] Insulin LISPRO [Humalog Kwikpen U-100] 12 unit SQ TID 01/06/17 [History] Levomefolate/B6/B12/Algal Oil [Metanx Capsule] 1 each PO BID 01/06/17 [History] Sodium Bicarbonate 650 mg PO TID 01/06/17 [History] Tadalafil [Cialis] 5 mg PO DAILY 01/06/17 [History] Acetaminophen [Tylenol] 650 mg PO Q6HR PRN tab 01/09/17 [Rx] Docusate [Colace] 100 mg PO BID PRN 01/09/17 [Rx] Pregabalin [Lyrica] 150 mg PO BID #30 01/09/17 [Rx] DULoxetine [Cymbalta] 30 mg PO BID 04/28/17 [History] Tizanidine HCl 2 mg PO DAILY 04/28/17 [History] 3 Allergy/AdvReac Type Severity Reaction Status Date / Time Sulfa (Sulfonamide Allergy Anaphylaxis Verified 04/28/17 11:30 Antibiotics) All Systems PM: A 10-system review of systems was performed and is negative for pertinent findings except as documented above in the HPI. - Constitutional Constitutional: no chills, no fever(s), no night sweats - EENT Eyes: no change in vision, no discharge, no pain, no photophobia Nose, mouth and throat: no dysphagia, no nasal discharge, no neck pain, no sore throat - Cardiovascular Cardiovascular ROS IM: no chest pain, no diaphoresis, no dyspnea, no lightheadedness, no palpitations, no syncope - Respiratory Respiratory: no cough, no dyspnea, no wheezing, no excessive phlegm production - Gastrointestinal Gastrointestinal: abdominal pain, nausea, vomiting, no diarrhea, no hematemesis , no hematochezia, no melena - Musculoskeletal Musculoskeletal ROS IM: no numbness, no tingling - Integumentary Integumentary IM: no rash, no unusual bruising - Neurological Neurological ROS: no confusion, no convulsions, no focal weakness, no numbness, no tingling, no tremor(s) - Hematologic/Lymphatic Hematologic/Lymphatic: no easy bruising - Constitutional Vitals: Temp Pulse Resp BP Pulse Ox 98.2 F 121 20 169/94 96 04/28/17 11:26 04/28/17 14:44 04/28/17 14:44 04/28/17 14:44 04/28/17 14:44 General appearance: Present: A&O X 3 - Head Head exam: Present: atraumatic, normocephalic - Eye Eye exam: Present: PERRL, conjuntiva pink, sclera anicteric Pupils: Present: PERRL - Neck Neck exam general surgery: Present: supple, trachea midline. Absent: lymphadenopathy - Respiratory Respiratory exam: Present: CTAB. Absent: accessory muscle use, rales, rhonchi, wheezes - Cardiovascular Cardiovascular exam: Present: RRR, +S1, +S2. Absent: diastolic murmur, gallop, rubs, systolic murmur - GI/Abdominal GI/Abdominal exam: Present: normal bowel sounds, soft, no peritoneal signs. Absent: distended, tenderness - Extremities Exam Extremities exam: Present: warm, radial pulses palpable and symmetrical. Absent : calf tenderness, cyanotic, pedal edema - Neurological Exam Neurological exam: Present: CN II-XII intact, oriented X3, no focal deficits. Absent: pronater drift, facial droop, speech deficit - Skin Skin exam: Present: dry, intact Internal Med - H&P Results - Labs CBC & Chem 7: 04/28/17 11:52 04/28/17 11:52 Labs: Urine 04/28/17 Range/Units 14:10 Urine Color Yellow (Yellow) Urine Clarity Clear (Clear) Urine pH 6.0 (5.0-8.0) pH Units Ur Specific [place] > 1.030 H (1.010-1.025) Urine Protein 100 H (Neg-Trace) mg/dL Urine Glucose (UA) >=1000 H (Normal) mg/dL - Diagnostic Studies CT scan - abdomen Additional comments: Abdomen/Pelvis CT 04/28/17 11:47 IMPRESSION: No acute abnormality in the abdomen or pelvis on the noncontrast CT. D/ / Federico Cardoso MD / Federico Cardoso MD Interpreting Provider: Federico Cardoso MD
[2017-04-28] MEDS ORDERED: Levofloxacin 750 MG/150 ML 750 MG/150 ML BAG IVPB SCH (17:00)
[2017-04-28] MEDS ORDERED: 0.9 % Sodium Chloride 1,000 ML IVC ONE (17:18)
[2017-04-28 20:06] LABS: Calcium 11.1 mg/dL (8.6-10.8)
[2017-04-28 20:07] LABS: Potassium 4.4 mEq/L (3.5-4.5)
[2017-04-28] MEDS: Piperacillin/Tazobactam 3.375 GM in D5% in Water 50 ML IVPB SCH (20:25)
[2017-04-28] MEDS ORDERED: *HR* Dextrose 50 % in Water (Syg) 50 ML SYRINGE IVP PRN (21:42)
[2017-04-28] MEDS: D5% in 0.45% NACL w KCl 20 MEQ/1,000 ML MLS IVC PRN (22:27)
[2017-04-28 23:04] LABS: Calcium 11.1 mg/dL (8.6-10.8)
[2017-04-28 23:05] LABS: Potassium 4.7 mEq/L (3.5-4.5)
[2017-04-28] MEDS: *HR* Heparin 5,000 UNIT/ML VIAL SQ SCH (23:49)
[2017-04-28] MEDS: Pregabalin 75 MG CAPSULE PO SCH (23:52)
[2017-04-28] MEDS: Metoprolol 100 MG TABLET PO SCH (23:52)
[2017-04-28] MEDS: Famotidine 20 MG TABLET PO SCH (23:52)
[2017-04-29 01:18] LABS: Calcium 10.3 mg/dL (8.6-10.8); Potassium 4.1 mEq/L (3.5-4.5)
[2017-04-29 01:21] LABS: Hemoglobin A1C 11.4 %
[2017-04-29] MEDS: D5% in 0.45% NACL w KCl 20 MEQ/1,000 ML MLS IVC PRN ×2 (02:34→06:42)
[2017-04-29] MEDS: *HR* Dextrose 50 % in Water (Syg) 50 ML SYRINGE IVP PRN ×2 (03:55→11:40)
[2017-04-29 05:10] LABS: Basophils % 0.2 %; Eosinophils % 0.1 %; Hematocrit 31.1 % (37.5-50.1); Immature Granulocytes % 0.4 % (0-4); Lymphocytes # 1.6 K/mcL (0.6-4.6); Lymphocytes % 8.1 %; Mean Corpuscular HGB Conc 33.1 g/dL (31.6-35.5); Mean Corpuscular Hemoglobin 30.6 pg (28.0-33.3); Mean Corpuscular Volume 92.3 fL (83.0-100.0); Monocytes # 2.3 K/mcL (0.0-1.3); Neutrophils # 15.3 K/mcL (1.6-8.9); Platelet Count 195 K/mcL (140-400); Red Blood Count 3.37 M/mcL (4.19-5.50); Red Cell Distribution Width 13.7 % (11.5-14.5); Segmented Neutrophils % 79.2 %
[2017-04-29 05:13] LABS: Calcium 9.7 mg/dL (8.6-10.8); Magnesium 1.3 mg/dL (1.6-2.6); Potassium 4.7 mEq/L (3.5-4.5)
[2017-04-29 05:14] LABS: Phosphorous 2.4 mg/dL (2.3-4.7)
[2017-04-29 05:37] LABS: Hemoglobin 10.3 g/dL (12.9-16.9)
[2017-04-29] MEDS: *HR* Heparin 5,000 UNIT/ML VIAL SQ SCH ×2 (06:07→18:00)
[2017-04-29] MEDS: Piperacillin/Tazobactam 3.375 GM in D5% in Water 50 ML IVPB SCH ×2 (06:07→18:00)
[2017-04-29] MEDS ORDERED: Insulin Regular, Human 100 UNIT/ML IV PRN (07:39)
[2017-04-29] MEDS ORDERED: Insulin Human Regular 100 UNIT in 0.9 % Sodium Chloride 100 ML IVC SCH (07:45)
[2017-04-29] MEDS: Pregabalin 75 MG CAPSULE PO SCH ×2 (08:47→21:39)
[2017-04-29] MEDS: amLODIPine 5 MG TABLET PO SCH (08:47)
[2017-04-29] MEDS: Aspirin Enteric Coated 81 MG Tablet PO SCH (08:47)
[2017-04-29] MEDS: Cholecalciferol (D-3) 1,000 UNIT TABLET PO SCH (08:48)
[2017-04-29] MEDS: Metoprolol 100 MG TABLET PO SCH ×2 (08:48→21:39)
[2017-04-29] MEDS ORDERED: Dextrose Gel 15 GM PO PRN ×2 (10:06)
[2017-04-29] MEDS ORDERED: *HR* Dextrose 50 % in Water (Syg) 50 ML SYRINGE IVP PRN (10:06)
[2017-04-29] MEDS ORDERED: D5% in Water 1,000 ML IVC PRN (10:06)
[2017-04-29] MEDS: Insulin DETEMIR 100 UNIT/ML X5UNITS SQ SCH ×2 (13:38→20:23)
[2017-04-29] MEDS: Insulin LISPRO 300 UNITS/3 ML VIAL SQ SCH ×2 (13:40→16:21)
--- NOTE | 2017-04-29 16:43 | Electrocardiograph Report ---
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
--- NOTE | 2017-04-29 19:09 | Internal Med Progress Note ---
Date of Encounter: 04/29/17 Time of Encounter: 10:00 - Assessment and plan (1) History of CVA (cerebrovascular accident) Current Visit: Yes Status: Acute Assessment and plan: Continue with Plavix and statin. (2) Vascular dementia Current Visit: Yes Status: Acute Assessment and plan: Patient reports a history consistent with progressive cognitive decline. he has long-standing history of hypertension. Recent stroke. 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 We will manage conservatively with frequent reorientation. Fall precautions. Delirium precautions. Avoid sedative medication. Qualifiers: Dementia behavioral disturbance: without behavioral disturbance Qualified Code(s): F01.50 - Vascular dementia without behavioral disturbance (3) Acute renal failure superimposed on stage 3 chronic kidney disease Current Visit: Yes Status: Acute Assessment and plan: Avoid nephrotoxins. Monitor GFR. Encourage oral hydration. Qualifiers: Acute renal failure type: unspecified Qualified Code(s): N17.9 - Acute kidney failure, unspecified; N18.3 - Chronic kidney disease, stage 3 (moderate) ; N18.3 - Chronic kidney disease, stage 3 (moderate) (4) Secondary diabetes with hyperglycemia hyperosmolar non-ketotic coma Current Visit: Yes Status: Acute Assessment and plan: Blood glucose improved with insulin drip. Currently we will transition to subcutaneous insulin. - Subjective Interval history: History cannot be obtained from the patient due to mental confusion. Per the and the bedside patient had been more lethargic and weak over the last few days. His blood glucose was elevated. - Constitutional Vitals: Temp Pulse Resp BP Pulse Ox 97.8 F 69 16 118/73 96 04/29/17 16:00 04/29/17 16:00 04/29/17 16:00 04/29/17 16:00 04/29/17 16:00 General appearance: Present: A&O X 2 - Respiratory Respiratory exam: Present: CTAB. Absent: accessory muscle use, rales, rhonchi, wheezes - Cardiovascular Cardiovascular exam: Present: RRR, +S1, +S2. Absent: diastolic murmur, gallop, rubs, systolic murmur - GI/Abdominal GI/Abdominal exam: Present: normal bowel sounds, soft, no peritoneal signs. Absent: distended, tenderness - Extremities Exam Extremities exam: Present: warm, radial pulses palpable and symmetrical. Absent : calf tenderness, cyanotic, pedal edema - Neurological Exam Neurological exam: Present: CN II-XII intact, no focal deficits. Absent: pronater drift, facial droop, speech deficit - Skin Skin exam: Present: dry, intact Internal Medicine: Result - Labs CBC & Chem 7: 04/29/17 04:54 04/29/17 04:54 Labs: Short CBC 04/29/17 Range/Units 04:54 WBC 19.3 H (4.3-11.1) K/mcL Hgb 10.3 L D (12.9-16.9) g/dL Hct 31.1 L (37.5-50.1) % Plt Count 195 (140-400) K/mcL Neutrophils # 15.3 H (1.6-8.9) K/mcL BMP 04/28/17 04/28/17 04/29/17 19:44 22:42 00:55 Sodium 143 D 146 H 143 Potassium 4.4 D 4.7 H 4.1 Chloride 103 110 H 109 Carbon Dioxide 27 24 25 BUN 29 H 31 H 30 H Creatinine 2.60 H 2.33 H 2.15 H Glucose 466 H 235 H 203 H Calcium 11.1 H 11.1 H 10.3 04/29/17 04:54 Sodium 138 Potassium 4.7 H Chloride 106 Carbon Dioxide 25 BUN 27 H Creatinine 1.92 H Glucose 133 H Calcium 9.7 Cardiac Enzymes 04/28/17 04/29/17 Range/Units 19:44 00:55 Troponin I 0.10 H* 0.09 H* (0-0.03) ng/mL - ABG Interpretation ABG results: PT/INR, D-dimer PT 12.6 Seconds (9.4-12.1) H 04/28/17 12:57 - Impressions Impressions Chest X-Ray 04/28/17 19:31 IMPRESSION: No acute process. D/ / Dariel Rod MD / Dariel Rod MD Interpreting Provider: Dariel Rod MD Head CT 04/28/17 22:21 IMPRESSION: No acute intracranial abnormality. Chronic small vessel white matter ischemic changes. Small remote right frontal lobe infarct . D/ / Meng Klein MD / Meng Klein MD Interpreting Provider: Meng Klein MD Consult Discharge Plan - Plan Referrals: Benny Jordan MD [Primary Care Provider] - 05/07/17 9:45 am ()
[2017-04-29] MEDS ORDERED: Insulin LISPRO 300 UNITS/3 ML VIAL SQ SCH (21:00)
[2017-04-29] MEDS: Famotidine 20 MG TABLET PO SCH (21:39)
[2017-04-30 05:36] LABS: Basophils % 0.3 %; Eosinophils # 0.4 K/mcL (0.0-0.6); Eosinophils % 2.7 %; Hematocrit 32.6 % (37.5-50.1); Hemoglobin 10.6 g/dL (12.9-16.9); Immature Granulocytes % 0.4 % (0-4); Lymphocytes # 2.7 K/mcL (0.6-4.6); Lymphocytes % 20.3 %; Mean Corpuscular HGB Conc 32.5 g/dL (31.6-35.5); Mean Corpuscular Volume 92.4 fL (83.0-100.0); Mean Platelet Volume 11.9 fL (9.4-12.4); Monocytes # 1.3 K/mcL (0.0-1.3); Monocytes % 9.6 %; Neutrophils # 8.9 K/mcL (1.6-8.9); Platelet Count 189 K/mcL (140-400); Red Blood Count 3.53 M/mcL (4.19-5.50); Red Cell Distribution Width 13.5 % (11.5-14.5); Segmented Neutrophils % 66.7 %
[2017-04-30 06:06] LABS: Potassium 4.4 mEq/L (3.5-4.5)
[2017-04-30] MEDS: *HR* Heparin 5,000 UNIT/ML VIAL SQ SCH ×2 (06:34→16:45)
[2017-04-30] MEDS: Piperacillin/Tazobactam 3.375 GM in D5% in Water 50 ML IVPB SCH (06:35)
[2017-04-30] MEDS: Pregabalin 75 MG CAPSULE PO SCH ×2 (08:07→21:04)
[2017-04-30] MEDS: Aspirin Enteric Coated 81 MG Tablet PO SCH (08:07)
[2017-04-30] MEDS: amLODIPine 5 MG TABLET PO SCH ×2 (08:08→16:44)
[2017-04-30] MEDS: Metoprolol 100 MG TABLET PO SCH ×2 (08:08→21:04)
[2017-04-30] MEDS: Cholecalciferol (D-3) 1,000 UNIT TABLET PO SCH (08:10)
[2017-04-30] MEDS: Insulin LISPRO 300 UNITS/3 ML VIAL SQ SCH ×4 (08:11→16:45)
[2017-04-30] MEDS: Insulin DETEMIR 100 UNIT/ML X5UNITS SQ SCH ×2 (08:11→21:03)
--- NOTE | 2017-04-30 13:49 | Discharge Summary ---
Date of Encounter: 04/30/17 Time of Encounter: 13:45 - Discharge Diagnosis (1) History of CVA (cerebrovascular accident) Priority: Secondary Status: Acute (2) Vascular dementia Priority: Secondary Status: Acute Qualifiers: Dementia behavioral disturbance: without behavioral disturbance Qualified Code(s): F01.50 - Vascular dementia without behavioral disturbance (3) Acute renal failure superimposed on stage 3 chronic kidney disease Priority: Secondary Status: Acute Qualifiers: Acute renal failure type: unspecified Qualified Code(s): N17.9 - Acute kidney failure, unspecified; N18.3 - Chronic kidney disease, stage 3 (moderate) ; N18.3 - Chronic kidney disease, stage 3 (moderate) (4) Secondary diabetes with hyperglycemia hyperosmolar non-ketotic coma Priority: Primary Status: Acute - Discharge Medications Prescriptions: Sitagliptin Phosphate [Januvia] 50 mg PO DAILY #30 tab Home Medications: Allopurinol [Zyloprim 100 MG] 100 mg PO DAILY 01/02/16 [History] Amlodipine Besylate 2.5 mg PO DAILY 01/02/16 [History] Aspirin Enteric Coated [Aspirin EC] 81 mg PO DAILY 01/02/16 [History] Atorvastatin [Lipitor] 40 mg PO HS 01/02/16 [History] Clopidogrel [Plavix] 75 mg PO DAILY 01/02/16 [History] Donepezil [Aricept] 10 mg PO HS 01/02/16 [History] Esomeprazole Magnesium [Nexium] 40 mg PO DAILY 01/02/16 [History] Fish Oil/Dha/Epa [Fish Oil 1,200 mg Fish Oil] 1 each PO BID 01/02/16 [History] Garlic [Odor Free Garlic] 100 mg PO DAILY 01/02/16 [History] Insulin Glargine,Hum.rec.anlog [Lantus Solostar] 40 unit SQ HS 01/02/16 [History ] Metoprolol [Lopressor] 100 mg PO BID 01/02/16 [History] Ranitidine HCl [Zantac] 150 mg PO HS 01/02/16 [History] Cholecalciferol (Vitamin D3) [Vitamin D3] 5,000 unit PO DAILY 01/06/17 [History] Insulin LISPRO [Humalog Kwikpen U-100] 12 unit SQ TID 01/06/17 [History] Levomefolate/B6/B12/Algal Oil [Metanx Capsule] 1 each PO BID 01/06/17 [History] Sodium Bicarbonate 650 mg PO TID 01/06/17 [History] Acetaminophen [Tylenol] 650 mg PO Q6HR PRN tab 01/09/17 [Rx] Docusate [Colace] 100 mg PO BID PRN 01/09/17 [Rx] Pregabalin [Lyrica] 150 mg PO BID #30 01/09/17 [Rx] DULoxetine [Cymbalta] 30 mg PO BID 04/28/17 [History] Tizanidine HCl 2 mg PO DAILY 04/28/17 [History] Insulin LISPRO [HumaLOG] 0 units SQ TIDAC vial 04/30/17 [Rx] Sitagliptin Phosphate [Januvia] 50 mg PO DAILY #30 tab 04/30/17 [Rx] Allergies/Adverse Reactions: 3 Allergy/AdvReac Type Severity Reaction Status Date / Time Sulfa (Sulfonamide Allergy Anaphylaxis Verified 04/28/17 11:30 Antibiotics) Procedures/tests Complete & Pending: Procedures Performed prior 72 hours Category Date Time Status CT head/brain wo con [CT] Stat Cat Scan 04/28/17 22:21 Completed EKG [ECG 12 lead ECG] [ECG] Stat Y 04/28/17 19:30 Completed Date of admission: 04/28/17 13:54 Primary care physician: Benny Jordan MD Consults: 04/29/17 15:18 Consult to Occupational Therapy [CONS] Routine Comment: Evaluate, develop and implement POC Reason for Consult: unsteady gait Consult to Physical Therapy [CONS] Routine Comment: Evaluate, develop and implement POC Reason for Consult: unsteady gait - Patient Status Disposition: Home Health Service Condition: Fair Functional capacity at discharge: uses cane/walker Overall status at discharge: patient is back to baseline - Discharge Instructions Follow Up With: Benny Jordan MD [Primary Care Provider] - 05/07/17 9:45 am () - Diet and Activity Activity: as per physical therapy Diet: diabetic diet, low salt diet Hospital course: Mr. Gillette is a 77 year old male with past medical history significant for hypertension, coronary artery disease status post CABG and stent placement, diabetes, CKD, recent CVA, mild dementia who was brought to the hospital for nausea and vomiting. Initial workup revealed a blood glucose of 780. VBG showed no evidence of acidosis. Anion gap was 26. He was admitted to the medical service for uncontrolled diabetes. He was treated with insulin drip for 2 days and switched to subcutaneous insulin. He was also found to have acute and chronic renal failure for which he received IV fluids. His creatinine is close to his baseline. On discharge I will stop his Cialis due to multiple medical problems and risk for medication interactions and risk for dangerous hypotension. I will stop the glipizide due to worsening renal failure and risk of hypoglycemia. I will adjust Januvia to his kidney function. I will add insulin sliding scale to his regimen. Mental status is back to baseline. I have educated the patient and family member regarding the importance of adherence to diabetic diet, monitoring blood glucose and following insulin regimen. His hemoglobin A1c was 11.4 during this admission. - Time Spent with Patient Total time spent providing and/or coordinating discharge services: Greater than 30 minutes - Constitutional Vitals: Temp Pulse Resp BP Pulse Ox 97.7 F 60 16 159/76 94 04/30/17 11:29 04/30/17 11:29 04/30/17 11:29 04/30/17 11:29 04/30/17 11:29 General appearance: Present: A&O X 2 - Respiratory Respiratory exam: Present: CTAB. Absent: accessory muscle use, rales, rhonchi, wheezes - Cardiovascular Cardiovascular exam: Present: RRR, +S1, +S2. Absent: diastolic murmur, gallop, rubs, systolic murmur - GI/Abdominal GI/Abdominal exam: Present: normal bowel sounds, soft, no peritoneal signs. Absent: distended, tenderness - Neurological Exam Neurological exam: Present: CN II-XII intact, oriented X3, no focal deficits. Absent: pronater drift, facial droop, speech deficit
--- NOTE | 2017-04-30 14:18 | Physician Discharge Referral ---
Home Health/Hosp Referral Info Transfer to: Home Health Provider in Charge Post Discharge: PCP - Diagnosis (1) History of CVA (cerebrovascular accident) Status: Acute (2) Vascular dementia Status: Acute (3) Acute renal failure superimposed on stage 3 chronic kidney disease Status: Acute (4) Secondary diabetes with hyperglycemia hyperosmolar non-ketotic coma Status: Acute - Respiratory Orders Smoking Cessation: Smoking cessation has been advised. For more information, call the [place] Tobacco Quit Line at 3-314-WNRD-NOW. - Diet/Nutrition Diet/Nutrition Orders: No Added Salt (KHANH), Cardiac, No Concentrated Sweets - Activity Activity Orders: Walker - Services Needed Following services are medically necessary services: Nursing, Home Health Aide, Physical Therapy - Transfer Medications Prescriptions: Sitagliptin Phosphate [Januvia] 50 mg PO DAILY #30 tab Home Medications: Allopurinol [Zyloprim 100 MG] 100 mg PO DAILY 01/02/16 [History] Amlodipine Besylate 2.5 mg PO DAILY 01/02/16 [History] Aspirin Enteric Coated [Aspirin EC] 81 mg PO DAILY 01/02/16 [History] Atorvastatin [Lipitor] 40 mg PO HS 01/02/16 [History] Clopidogrel [Plavix] 75 mg PO DAILY 01/02/16 [History] Donepezil [Aricept] 10 mg PO HS 01/02/16 [History] Esomeprazole Magnesium [Nexium] 40 mg PO DAILY 01/02/16 [History] Fish Oil/Dha/Epa [Fish Oil 1,200 mg Fish Oil] 1 each PO BID 01/02/16 [History] Garlic [Odor Free Garlic] 100 mg PO DAILY 01/02/16 [History] Insulin Glargine,Hum.rec.anlog [Lantus Solostar] 40 unit SQ HS 01/02/16 [History ] Metoprolol [Lopressor] 100 mg PO BID 01/02/16 [History] Ranitidine HCl [Zantac] 150 mg PO HS 01/02/16 [History] Cholecalciferol (Vitamin D3) [Vitamin D3] 5,000 unit PO DAILY 01/06/17 [History] Insulin LISPRO [Humalog Kwikpen U-100] 12 unit SQ TID 01/06/17 [History] Levomefolate/B6/B12/Algal Oil [Metanx Capsule] 1 each PO BID 01/06/17 [History] Sodium Bicarbonate 650 mg PO TID 01/06/17 [History] Acetaminophen [Tylenol] 650 mg PO Q6HR PRN tab 01/09/17 [Rx] Docusate [Colace] 100 mg PO BID PRN 01/09/17 [Rx] Pregabalin [Lyrica] 150 mg PO BID #30 01/09/17 [Rx] DULoxetine [Cymbalta] 30 mg PO BID 04/28/17 [History] Tizanidine HCl 2 mg PO DAILY 04/28/17 [History] Insulin LISPRO [HumaLOG] 0 units SQ TIDAC vial 04/30/17 [Rx] Sitagliptin Phosphate [Januvia] 50 mg PO DAILY #30 tab 04/30/17 [Rx] Allergies/Adverse Reactions: 3 Allergy/AdvReac Type Severity Reaction Status Date / Time Sulfa (Sulfonamide Allergy Anaphylaxis Verified 04/28/17 11:30 Antibiotics) Certification: Further, I certify that my clinical findings support that this patient is homebound (i.e. absences from home require considerable and taxing effort and are for medical reasons or adventist services or infrequently or short duration when for other reasons) because: Homebound Reason: Patient requires assistance of a person or device to safely leave home, Leaving home requires considerable and taxing effort due to condition, Altered mental status requiring supervision when leaving home Attestation: My signature below is to certify that this patient is under my care and that I, or nurse practitioner, or a physician's emergency room physician assistant working with me, has a face-to -face encounter with this patient.
--- NOTE | 2017-04-30 17:57 | Electrocardiograph Report ---
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
[2017-04-30] MEDS ORDERED: Piperacillin/Tazobactam 3.375 GM in D5% in Water 50 ML IVPB SCH (18:00)
--- NOTE | 2017-04-30 18:33 | Internal Med Progress Note ---
Date of Encounter: 04/30/17 Time of Encounter: 15:00 - Assessment and plan (1) History of CVA (cerebrovascular accident) Current Visit: Yes Status: Acute Assessment and plan: Continue with Plavix and statin. (2) Vascular dementia Current Visit: Yes Status: Acute Assessment and plan: Patient was evaluated by physical therapy and based on his physical performance he was deemed high risk for falls with injuries if discharged home. Currently there is no safe discharge planning in place for rehabilitation and therefore I will consult social services aide to discuss placement options. The patient's family is in agreement with short-term placement. Patient reports a history consistent with progressive cognitive decline. he has long-standing history of hypertension. Recent stroke. 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 We will manage conservatively with frequent reorientation. Fall precautions. Delirium precautions. Avoid sedative medication. Qualifiers: Dementia behavioral disturbance: without behavioral disturbance Qualified Code(s): F01.50 - Vascular dementia without behavioral disturbance (3) Acute renal failure superimposed on stage 3 chronic kidney disease Current Visit: Yes Status: Acute Assessment and plan: Avoid nephrotoxins. Monitor GFR. Encourage oral hydration. Qualifiers: Acute renal failure type: unspecified Qualified Code(s): N17.9 - Acute kidney failure, unspecified; N18.3 - Chronic kidney disease, stage 3 (moderate) ; N18.3 - Chronic kidney disease, stage 3 (moderate) (4) Secondary diabetes with hyperglycemia hyperosmolar non-ketotic coma Current Visit: Yes Status: Acute Assessment and plan: Blood glucose improved with insulin drip. Currently we will transition to subcutaneous insulin. (5) Parkinsonism Current Visit: Yes Status: Acute Assessment and plan: Patient shows features of parkinsonism with bradykinetic movements and immobile facial expression, fine upper extremity tremors and mild cogwheel rigidity. She does not have any exclusion criteria Parkinson's disease diagnosed disease. I will empirically start levodopa carbidopa and monitor clinically Qualifiers: Parkinsonism type: unspecified Qualified Code(s): G20 - Parkinson's disease - Subjective Interval history: 05/10/2017: Patient reports improvement of his generalized weakness, he remains slightly confused but moves status has improved per his . His reports that the patient is very unsteady and has a shuffled gait. 04/29/2017: History cannot be obtained from the patient due to mental confusion. Per the and the bedside patient had been more lethargic and weak over the last few days. His blood glucose was elevated. - Constitutional Vitals: Temp Pulse Resp BP Pulse Ox 97.9 F 67 16 142/76 96 04/30/17 16:25 04/30/17 16:25 04/30/17 16:25 04/30/17 16:25 04/30/17 16:25 General appearance: Present: A&O X 2 - Respiratory Respiratory exam: Present: CTAB. Absent: accessory muscle use, rales, rhonchi, wheezes - Cardiovascular Cardiovascular exam: Present: RRR, +S1, +S2. Absent: diastolic murmur, gallop, rubs, systolic murmur - GI/Abdominal GI/Abdominal exam: Present: normal bowel sounds, soft, no peritoneal signs. Absent: distended, tenderness - Extremities Exam Extremities exam: Present: warm, radial pulses palpable and symmetrical. Absent : calf tenderness, cyanotic, pedal edema - Neurological Exam Neurological exam: Present: CN II-XII intact, oriented X3, no focal deficits. Absent: pronater drift, facial droop (Rigid and Ann facial expression, upper extremity tremors), speech deficit Additional comments: Mild cogwheel rigidity of the upper extremities, - Skin Skin exam: Present: dry, intact Internal Medicine: Result - Labs CBC & Chem 7: 04/30/17 05:24 04/30/17 05:24 Labs: Short CBC 04/30/17 Range/Units 05:24 WBC 13.3 H (4.3-11.1) K/mcL Hgb 10.6 L (12.9-16.9) g/dL Hct 32.6 L (37.5-50.1) % Plt Count 189 (140-400) K/mcL Neutrophils # 8.9 (1.6-8.9) K/mcL BMP 04/30/17 05:24 Sodium 134 L Potassium 4.4 Chloride 102 Carbon Dioxide 23 BUN 27 H Creatinine 1.92 H Glucose 191 H Calcium 9.0 Cardiac Enzymes 04/30/17 Range/Units 08:00 Troponin I 0.04 H* (0-0.03) ng/mL - ABG Interpretation ABG results: PT/INR, D-dimer PT 12.6 Seconds (9.4-12.1) H 04/28/17 12:57 Consult Discharge Plan - Plan Referrals: Okolie,Zapata, MD [Primary Care Provider] - 05/07/17 9:45 am () Prescriptions: Sitagliptin Phosphate [Januvia] 50 mg PO DAILY #30 tab
[2017-04-30] MEDS ORDERED: Insulin LISPRO 300 UNITS/3 ML VIAL SQ SCH (21:00)
[2017-04-30] MEDS: Famotidine 20 MG TABLET PO SCH (21:04)
[2017-04-30] MEDS: Carbidopa/Levodopa 25/100 TABLET PO SCH (21:04)
[2017-05-01 04:23] LABS: Basophils # 0.1 K/mcL (0.0-0.2); Basophils % 0.5 %; Eosinophils # 0.6 K/mcL (0.0-0.6); Hematocrit 30.8 % (37.5-50.1); Hemoglobin 10.3 g/dL (12.9-16.9); Immature Granulocytes % 0.5 % (0-4); Lymphocytes # 2.7 K/mcL (0.6-4.6); Lymphocytes % 27.8 %; Mean Corpuscular HGB Conc 33.4 g/dL (31.6-35.5); Mean Corpuscular Volume 89.8 fL (83.0-100.0); Monocytes # 1.1 K/mcL (0.0-1.3); Neutrophils # 5.3 K/mcL (1.6-8.9); Platelet Count 172 K/mcL (140-400); Red Blood Count 3.43 M/mcL (4.19-5.50); Segmented Neutrophils % 54.2 %
[2017-05-01 04:34] LABS: Calcium 9.1 mg/dL (8.6-10.8)
[2017-05-01 04:35] LABS: Potassium 4.2 mEq/L (3.5-4.5)
[2017-05-01] MEDS: *HR* Heparin 5,000 UNIT/ML VIAL SQ SCH (06:03)
[2017-05-01 07:33] VITALS: BP 145/71
[2017-05-01] MEDS: Metoprolol 100 MG TABLET PO SCH (08:01)
[2017-05-01] MEDS: Aspirin Enteric Coated 81 MG Tablet PO SCH (08:01)
[2017-05-01] MEDS: Insulin DETEMIR 100 UNIT/ML X5UNITS SQ SCH (08:01)
[2017-05-01] MEDS: amLODIPine 5 MG TABLET PO SCH (08:01)
[2017-05-01] MEDS: Cholecalciferol (D-3) 1,000 UNIT TABLET PO SCH (08:01)
[2017-05-01] MEDS: Insulin LISPRO 300 UNITS/3 ML VIAL SQ SCH ×4 (08:01→11:29)
[2017-05-01] MEDS: Pregabalin 75 MG CAPSULE PO SCH (08:01)
[2017-05-01] MEDS: Carbidopa/Levodopa 25/100 TABLET PO SCH (08:01)
--- NOTE | 2017-05-01 11:05 | Internal Med Progress Note ---
Date of Encounter: 05/01/17 Time of Encounter: 11:02 - Assessment and plan (1) History of CVA (cerebrovascular accident) Current Visit: Yes Status: Acute Assessment and plan: Continue with Plavix and statin. (2) Vascular dementia Current Visit: Yes Status: Acute Assessment and plan: Patient was evaluated by physical therapy and based on his physical performance he was deemed high risk for falls with injuries if discharged home. Currently there is no safe discharge planning in place for rehabilitation and therefore I will consult criminal justice social worker to discuss placement options. The patient's family is in agreement with short-term placement. Patient reports a history consistent with progressive cognitive decline. he has long-standing history of hypertension. Recent stroke. 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 We will manage conservatively with frequent reorientation. Fall precautions. Delirium precautions. Avoid sedative medication. Qualifiers: Dementia behavioral disturbance: without behavioral disturbance Qualified Code(s): F01.50 - Vascular dementia without behavioral disturbance (3) Acute renal failure superimposed on stage 3 chronic kidney disease Current Visit: Yes Status: Acute Assessment and plan: Creatinine improving. Encourage oral hydration. Qualifiers: Acute renal failure type: unspecified Qualified Code(s): N17.9 - Acute kidney failure, unspecified; N18.3 - Chronic kidney disease, stage 3 (moderate) ; N18.3 - Chronic kidney disease, stage 3 (moderate) (4) Secondary diabetes with hyperglycemia hyperosmolar non-ketotic coma Current Visit: Yes Status: Acute Assessment and plan: Stop oral antidiabetic medication. Continue with Lantus and insulin sliding scale as well as pre-meal Humalog at the halfway. (5) Parkinsonism Current Visit: Yes Status: Acute Assessment and plan: Continue with Sinemet. Monitor clinically. Follow-up with PCP to reevaluate for parkinsonism. If tremors and rigidity do not improve I recommend discontinuing this medication in the next 2 weeks. Qualifiers: Parkinsonism type: unspecified Qualified Code(s): G20 - Parkinson's disease - Subjective Interval history: 05/11/2017: Patient is back to baseline. Has been evaluated by PT OT. They recommended inpatient rehabilitation. He is medically stable for discharge to rehabilitation. Social work has been consulted and working on placement. - Constitutional Vitals: Temp Pulse Resp BP Pulse Ox 97.6 F 61 18 145/71 94 05/01/17 07:32 05/01/17 08:16 05/01/17 07:32 05/01/17 07:32 05/01/17 07:32 General appearance: Present: A&O X 2 - Respiratory Respiratory exam: Present: CTAB. Absent: accessory muscle use, rales, rhonchi, wheezes - Cardiovascular Cardiovascular exam: Present: RRR, +S1, +S2. Absent: diastolic murmur, gallop, rubs, systolic murmur - GI/Abdominal GI/Abdominal exam: Present: normal bowel sounds, soft, no peritoneal signs. Absent: distended, tenderness Internal Medicine: Result - Labs CBC & Chem 7: 05/01/17 04:09 05/01/17 04:09 Labs: Short CBC 05/01/17 Range/Units 04:09 WBC 9.7 (4.3-11.1) K/mcL Hgb 10.3 L (12.9-16.9) g/dL Hct 30.8 L (37.5-50.1) % Plt Count 172 (140-400) K/mcL Neutrophils # 5.3 (1.6-8.9) K/mcL BMP 05/01/17 04:09 Sodium 134 L Potassium 4.2 Chloride 101 Carbon Dioxide 23 BUN 34 H Creatinine 1.60 H Glucose 204 H Calcium 9.1 - ABG Interpretation ABG results: PT/INR, D-dimer PT 12.6 Seconds (9.4-12.1) H 04/28/17 12:57 Consult Discharge Plan - Plan Referrals: Benny Jordan MD [Primary Care Provider] - 05/07/17 9:45 am () Prescriptions: Sitagliptin Phosphate [Januvia] 50 mg PO DAILY #30 tab
--- NOTE | 2017-05-01 11:08 | Physician Discharge Referral ---
ExtendedCare Referral Info Provider in Charge after Transfer: PCP Institutional Level of Care: Skilled - Diagnosis (1) History of CVA (cerebrovascular accident) Status: Acute (2) Vascular dementia Status: Acute (3) Acute renal failure superimposed on stage 3 chronic kidney disease Status: Acute (4) Secondary diabetes with hyperglycemia hyperosmolar non-ketotic coma Status: Acute (5) Parkinsonism Status: Acute - Transfer Medications Home Medications: Allopurinol [Zyloprim 100 MG] 100 mg PO DAILY 01/02/16 [History] Amlodipine Besylate 2.5 mg PO DAILY 01/02/16 [History] Aspirin Enteric Coated [Aspirin EC] 81 mg PO DAILY 01/02/16 [History] Atorvastatin [Lipitor] 40 mg PO HS 01/02/16 [History] Clopidogrel [Plavix] 75 mg PO DAILY 01/02/16 [History] Donepezil [Aricept] 10 mg PO HS 01/02/16 [History] Esomeprazole Magnesium [Nexium] 40 mg PO DAILY 01/02/16 [History] Fish Oil/Dha/Epa [Fish Oil 1,200 mg Fish Oil] 1 each PO BID 01/02/16 [History] Garlic [Odor Free Garlic] 100 mg PO DAILY 01/02/16 [History] Insulin Glargine,Hum.rec.anlog [Lantus Solostar] 40 unit SQ HS 01/02/16 [History ] Metoprolol [Lopressor] 100 mg PO BID 01/02/16 [History] Ranitidine HCl [Zantac] 150 mg PO HS 01/02/16 [History] Cholecalciferol (Vitamin D3) [Vitamin D3] 5,000 unit PO DAILY 01/06/17 [History] Insulin LISPRO [Humalog Kwikpen U-100] 12 unit SQ TID 01/06/17 [History] Levomefolate/B6/B12/Algal Oil [Metanx Capsule] 1 each PO BID 01/06/17 [History] Sodium Bicarbonate 650 mg PO TID 01/06/17 [History] Acetaminophen [Tylenol] 650 mg PO Q6HR PRN tab 01/09/17 [Rx] Docusate [Colace] 100 mg PO BID PRN 01/09/17 [Rx] Pregabalin [Lyrica] 150 mg PO BID #30 01/09/17 [Rx] DULoxetine [Cymbalta] 30 mg PO BID 04/28/17 [History] Tizanidine HCl 2 mg PO DAILY 04/28/17 [History] Insulin LISPRO [HumaLOG] 0 units SQ TIDAC vial 04/30/17 [Rx] Carbidopa/Levodopa 25/100 [Sinemet 25/100] 1 each PO BID tablet 05/01/17 [Rx] Allergies/Adverse Reactions: 3 Allergy/AdvReac Type Severity Reaction Status Date / Time Sulfa (Sulfonamide Allergy Anaphylaxis Verified 04/28/17 11:30 Antibiotics) - Respiratory Orders Smoking Cessation: Smoking cessation has been advised. For more information, call the [place] Tobacco Quit Line at 6-953-ZRXF-NOW. - Advance Directives Living Will: Yes Power of Hunting Guide: Yes Code Status: Full Code - Rehabiliation Orders Rehab Potential: Good Rehab Orders: Evaluation for Physical Therapy, Evaluation for Occupational Therapy - Diet Orders No Added Salt (KHANH), No Concentrated Sweets CERTIFICATION: I certify that the transfer of the above named patient to an Extended Care Facility is necessary for the continuing treatment of the diagnosis listed. The above information is true and accurate reflection of patient's current condition. Confidential - Redisclosure prohibited without a patient's written consent.
--- NOTE | 2017-05-01 16:27 | Electrocardiograph Report ---
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
== END 2017-05-01 15:39 | disposition home health service (06) | DRG 638 ==
LOC: EMEROO 11:22 → 2NNU 13:54
PROVIDERS: ADMIT Internal Medicine; ATTEND Internal Medicine

== ENCOUNTER 2019-10-14 13:51 | Inpatient (IN) ==
[2019-10-14] MEDS ORDERED: 0.9 % Sodium Chloride 500 ML IVC ONE (14:07)
[2019-10-14 14:39] LABS: Basophils # 0.1 K/mcL (0.0-0.2); Basophils % 0.8 %; Eosinophils # 0.2 K/mcL (0.0-0.6); Eosinophils % 2.1 %; Hemoglobin 13.1 g/dL (12.9-16.9); Immature Granulocytes % 0.6 % (0-4); Lymphocytes # 1.9 K/mcL (0.6-4.6); Mean Corpuscular HGB Conc 32.8 g/dL (31.6-35.5); Mean Corpuscular Hemoglobin 30.5 pg (28.0-33.3); Mean Platelet Volume 12.8 fL (9.4-12.4); Monocytes # 1.3 K/mcL (0.0-1.3); Monocytes % 14.9 %; Neutrophils # 5.4 K/mcL (1.6-8.9); Platelet Count 242 K/mcL (140-400); Red Cell Distribution Width 13.2 % (11.5-14.5); Segmented Neutrophils % 60.6 %
[2019-10-14 14:59] LABS: Albumin 4.2 g/dL (3.5-5.7); Albumin/Globulin Ratio 1.4 (1.1-2.2); Bilirubin,Total 0.6 mg/dL (0.3-1.0); Calcium 11.6 mg/dL (8.6-10.3); Globulin 3.1 g/dL (2.4-3.5); Potassium 4.1 mEq/L (3.5-5.1); Total Protein 7.3 g/dL (6.4-8.9)
[2019-10-14] MEDS ORDERED: Insulin Human Regular 7 UNIT in 0.9 % Sodium Chloride 10 ML IV ONE (15:28)
[2019-10-14] MEDS ORDERED: 0.9 % Sodium Chloride 1,000 ML IVC ONE (15:37)
[2019-10-14 16:36] LABS: Bilirubin,Urine Negative (Negative); Blood,Urine Negative (Negative); Clarity,Urine Clear (Clear); Color,Urine Yellow (Yellow); Glucose,Urine (UA) >=1000 mg/dL (Normal); Ketones,Urine 15 mg/dL (Negative); Leukocyte Esterase,Urine Negative (Negative); Nitrite,Urine Negative (Negative); PH,Urine 5.5 pH Units (5.0-8.0); Protein,Urine 100 mg/dL (Neg-Trace); Specific Gravity,Urine 1.024 (1.010-1.025); Urobilinogen,Urine Normal (Normal)
[2019-10-14 16:47] LABS: WBC,Urine 0-3 per hpf (0-3)
[2019-10-14] MEDS ORDERED: Ondansetron 4 MG/2 ML VIAL IVP PRN (17:14)
[2019-10-14] MEDS ORDERED: Naloxone 0.4 MG/ML INJ IVP PRN (17:14)
[2019-10-14] MEDS ORDERED: Acetaminophen 325 MG TABLET PO PRN (17:18)
[2019-10-14] MEDS ORDERED: *HR* Dextrose 50 % in Water (Syg) 50 ML SYRINGE IVP PRN (17:22)
[2019-10-14] MEDS ORDERED: Dextrose Gel 15 GM/37.5 ML TUBE PO PRN ×2 (17:22)
[2019-10-14] MEDS ORDERED: D5% in Water 1,000 ML IVC PRN (17:22)
[2019-10-14] MEDS: Ringers Solution, Lactated 1,000 ML IVC SCH (18:33)
[2019-10-14] MEDS: cefTRIAXone 1,000 MG in Water for inj. (sterile) 10 ML IVP SCH (18:33)
[2019-10-14] MEDS ORDERED: Insulin DETEMIR 100 UNIT/ML X5UNITS SQ SCH (21:00)
[2019-10-14] MEDS: Insulin LISPRO 300 UNITS/3 ML VIAL SQ SCH (21:02)
[2019-10-14] MEDS: *HR* Heparin 5,000 UNIT/ML VIAL SQ SCH (21:02)
[2019-10-14] MEDS: Metoprolol 100 MG TABLET PO SCH (21:04)
[2019-10-14] MEDS ORDERED: Chloraseptic Spray 177 ML BOTTLE MM PRN (22:45)
[2019-10-14] MEDS ORDERED: Insulin LISPRO 300 UNITS/3 ML VIAL SQ ONE (22:59)
[2019-10-15] MEDS ORDERED: Insulin DETEMIR 100 UNIT/ML X5UNITS SQ ONE (01:25)
[2019-10-15] MEDS: Ringers Solution, Lactated 1,000 ML IVC SCH ×2 (02:07→14:31)
[2019-10-15 02:40] LABS: INR 1.1; Prothrombin Time 12.6 Seconds (9.4-12.1)
[2019-10-15 02:48] LABS: Basophils % 0.4 %; Eosinophils # 0.1 K/mcL (0.0-0.6); Eosinophils % 1.9 %; Hematocrit 35.7 % (37.5-50.1); Hemoglobin 11.8 g/dL (12.9-16.9); Immature Granulocytes % 0.4 % (0-4); Immature Platelets 13.6 % (1.1-6.1); Lymphocytes # 1.3 K/mcL (0.6-4.6); Lymphocytes % 17.8 %; Mean Corpuscular HGB Conc 33.1 g/dL (31.6-35.5); Mean Corpuscular Hemoglobin 30.3 pg (28.0-33.3); Mean Corpuscular Volume 91.8 fL (83.0-100.0); Mean Platelet Volume 13.3 fL (9.4-12.4); Monocytes % 13.7 %; Neutrophils # 4.8 K/mcL (1.6-8.9); Platelet Count 231 K/mcL (140-400); Red Blood Count 3.89 M/mcL (4.19-5.50); Red Cell Distribution Width 13.2 % (11.5-14.5); Segmented Neutrophils % 65.8 %; White Blood Count 7.2 K/mcL (4.3-11.1)
[2019-10-15 02:58] LABS: BUN/Creatinine Ratio 22 (6-26); Blood Urea Nitrogen 58 mg/dL (8-23); Calcium 10.8 mg/dL (8.6-10.3); Carbon Dioxide 21 mEq/L (23-29); Chloride 102 mEq/L (98-107); Chol/HDL Ratio 10.2 (0-4.9); Cholesterol 112 mg/dL (< 200); Glucose 293 mg/dL (70-105); HDL Cholesterol 11 mg/dL (40-59); Magnesium 1.4 mg/dL (1.6-2.6); Osmolality,Calculated 303 (280-300); Phosphorous 2.4 mg/dL (2.7-4.5); Potassium 3.8 mEq/L (3.5-5.1); Sodium 133 mEq/L (136-145); Triglycerides 456 mg/dL (< 150); eGFR For African Americans 28 (> 60); eGFR For Non-African Americans 23 (> 60)
[2019-10-15] MEDS: *HR* Heparin 5,000 UNIT/ML VIAL SQ SCH ×3 (06:31→22:16)
[2019-10-15 06:49] LABS: Protein/Creatinine Ratio,Urine 0.73 mg/mg (0.00-0.20); Sodium, Urine 45.2 mEq/L
[2019-10-15 07:55] LABS: Estimated Average Glucose 332 mg/dl
[2019-10-15] MEDS: amLODIPine 5 MG TABLET PO SCH (08:04)
[2019-10-15] MEDS: Aspirin Enteric Coated 81 MG Tablet PO SCH (08:05)
[2019-10-15] MEDS: Metoprolol 100 MG TABLET PO SCH ×2 (08:05→20:35)
[2019-10-15] MEDS: Insulin LISPRO 300 UNITS/3 ML VIAL SQ SCH ×4 (08:05→20:36)
[2019-10-15] MEDS: Insulin DETEMIR 100 UNIT/ML X5UNITS SQ SCH (20:37)
[2019-10-15] MEDS ORDERED: 0.9 % Sodium Chloride 1,000 ML IVC SCH (21:00)
[2019-10-16] MEDS: cefTRIAXone 1,000 MG in Water for inj. (sterile) 10 ML IVP SCH ×3 (00:13→18:00)
[2019-10-16 01:01] LABS: Basophils % 0.6 %; Hemoglobin 10.3 g/dL (12.9-16.9); Red Cell Distribution Width 13.2 % (11.5-14.5)
[2019-10-16 01:03] LABS: Eosinophils # 0.3 K/mcL (0.0-0.6); Eosinophils % 4.7 %; Hematocrit 30.7 % (37.5-50.1); Immature Granulocytes % 0.4 % (0-4); Immature Platelets 10.2 % (1.1-6.1); Lymphocytes # 1.2 K/mcL (0.6-4.6); Lymphocytes % 17.1 %; Mean Corpuscular HGB Conc 33.6 g/dL (31.6-35.5); Mean Corpuscular Hemoglobin 31.4 pg (28.0-33.3); Mean Corpuscular Volume 93.6 fL (83.0-100.0); Monocytes % 14.3 %; Neutrophils # 4.4 K/mcL (1.6-8.9); Platelet Count 187 K/mcL (140-400); Red Blood Count 3.28 M/mcL (4.19-5.50); Segmented Neutrophils % 62.9 %
[2019-10-16 01:24] LABS: Calcium 10.3 mg/dL (8.6-10.3); Potassium 3.7 mEq/L (3.5-5.1)
[2019-10-16] MEDS: *HR* Heparin 5,000 UNIT/ML VIAL SQ SCH ×3 (05:54→21:53)
[2019-10-16] MEDS: Insulin LISPRO 300 UNITS/3 ML VIAL SQ SCH ×4 (08:08→21:56)
[2019-10-16] MEDS: amLODIPine 5 MG TABLET PO SCH (08:09)
[2019-10-16] MEDS: Aspirin Enteric Coated 81 MG Tablet PO SCH (08:09)
[2019-10-16] MEDS: Insulin DETEMIR 100 UNIT/ML X5UNITS SQ SCH ×2 (08:09→21:54)
[2019-10-16] MEDS: Metoprolol 100 MG TABLET PO SCH ×2 (08:09→21:53)
[2019-10-16] MEDS ORDERED: Sodium Bicarbonate 75 MEQ in 0.45 % Sodium Chloride 1,000 ML IVC SCH ×2 (09:30→11:45)
[2019-10-16] MEDS ORDERED: Insulin DETEMIR 100 UNIT/ML X5UNITS SQ ONE (13:39)
[2019-10-16] MEDS: Ringers Solution, Lactated 1,000 ML IVC SCH (22:08)
[2019-10-17 01:41] LABS: Basophils # 0.1 K/mcL (0.0-0.2); Basophils % 0.8 %; Eosinophils # 0.5 K/mcL (0.0-0.6); Eosinophils % 7.4 %; Hematocrit 28.1 % (37.5-50.1); Hemoglobin 9.4 g/dL (12.9-16.9); Immature Granulocytes % 0.8 % (0-4); Lymphocytes # 1.3 K/mcL (0.6-4.6); Lymphocytes % 18.8 %; Mean Corpuscular HGB Conc 33.5 g/dL (31.6-35.5); Mean Corpuscular Volume 92.7 fL (83.0-100.0); Mean Platelet Volume 12.9 fL (9.4-12.4); Monocytes # 0.9 K/mcL (0.0-1.3); Monocytes % 12.9 %; Platelet Count 168 K/mcL (140-400); Red Blood Count 3.03 M/mcL (4.19-5.50); Red Cell Distribution Width 13.2 % (11.5-14.5); Segmented Neutrophils % 59.3 %; White Blood Count 6.7 K/mcL (4.3-11.1)
[2019-10-17 02:01] LABS: Calcium 9.4 mg/dL (8.6-10.3); Phosphorous 4.4 mg/dL (2.7-4.5); Potassium 3.3 mEq/L (3.5-5.1)
[2019-10-17 02:03] LABS: Magnesium 1.2 mg/dL (1.6-2.6)
[2019-10-17 02:26] LABS: Folate 18.4 ng/mL (3.0-16.0)
[2019-10-17] MEDS: *HR* Heparin 5,000 UNIT/ML VIAL SQ SCH ×3 (07:31→21:30)
[2019-10-17] MEDS: Metoprolol 100 MG TABLET PO SCH ×2 (07:34→21:29)
[2019-10-17] MEDS: amLODIPine 5 MG TABLET PO SCH (07:34)
[2019-10-17] MEDS: Aspirin Enteric Coated 81 MG Tablet PO SCH (07:34)
[2019-10-17] MEDS: Insulin DETEMIR 100 UNIT/ML X5UNITS SQ SCH ×2 (07:35→21:30)
[2019-10-17] MEDS: Insulin LISPRO 300 UNITS/3 ML VIAL SQ SCH ×4 (07:35→21:30)
[2019-10-17] MEDS: Ringers Solution, Lactated 1,000 ML IVC SCH (11:43)
[2019-10-17 12:08] LABS: Albumin 3.4 g/dL (3.5-5.7); Calcium 9.9 mg/dL (8.6-10.3); Phosphorous 3.5 mg/dL (2.7-4.5); Potassium 3.8 mEq/L (3.5-5.1)
[2019-10-17] MEDS: cefTRIAXone 1,000 MG in Water for inj. (sterile) 10 ML IVP SCH (16:57)
[2019-10-18] MEDS: Ringers Solution, Lactated 1,000 ML IVC SCH ×2 (01:58→14:45)
[2019-10-18] MEDS: *HR* Heparin 5,000 UNIT/ML VIAL SQ SCH ×3 (06:09→22:05)
[2019-10-18 06:43] LABS: Basophils % 0.5 %; Eosinophils # 0.3 K/mcL (0.0-0.6); Eosinophils % 5.7 %; Hematocrit 28.5 % (37.5-50.1); Hemoglobin 9.5 g/dL (12.9-16.9); Immature Granulocytes % 1.2 % (0-4); Lymphocytes # 1.2 K/mcL (0.6-4.6); Lymphocytes % 20.1 %; Mean Corpuscular HGB Conc 33.3 g/dL (31.6-35.5); Mean Corpuscular Volume 93.1 fL (83.0-100.0); Mean Platelet Volume 12.8 fL (9.4-12.4); Monocytes # 0.9 K/mcL (0.0-1.3); Neutrophils # 3.4 K/mcL (1.6-8.9); Platelet Count 157 K/mcL (140-400); Red Blood Count 3.06 M/mcL (4.19-5.50); Red Cell Distribution Width 13.2 % (11.5-14.5); Segmented Neutrophils % 57.5 %; White Blood Count 5.9 K/mcL (4.3-11.1)
[2019-10-18 07:06] LABS: Calcium 9.7 mg/dL (8.6-10.3); Potassium 3.9 mEq/L (3.5-5.1)
[2019-10-18] MEDS: amLODIPine 5 MG TABLET PO SCH (07:40)
[2019-10-18] MEDS: Insulin LISPRO 300 UNITS/3 ML VIAL SQ SCH ×4 (07:40→22:05)
[2019-10-18] MEDS: Metoprolol 100 MG TABLET PO SCH ×2 (07:40→22:04)
[2019-10-18] MEDS: Loratadine 10 MG TABLET PO SCH (07:40)
[2019-10-18] MEDS: Multivit/Ca/Min/Fe/FA 1 TAB TABLET PO SCH (07:40)
[2019-10-18] MEDS: Aspirin Enteric Coated 81 MG Tablet PO SCH (07:40)
[2019-10-18] MEDS: Insulin DETEMIR 100 UNIT/ML X5UNITS SQ SCH (07:46)
[2019-10-18] MEDS: calcium polycarbophiL 625 MG TABLET PO SCH (07:46)
[2019-10-18] MEDS ORDERED: Insulin DETEMIR 100 UNIT/ML X5UNITS SQ ONE (08:59)
[2019-10-18] MEDS ORDERED: Insulin DETEMIR 100 UNIT/ML X5UNITS SQ SCH ×2 (09:00→21:00)
[2019-10-18] MEDS: cefTRIAXone 1,000 MG in Water for inj. (sterile) 10 ML IVP SCH (16:19)
[2019-10-19 02:27] LABS: Basophils # 0.1 K/mcL (0.0-0.2); Basophils % 0.8 %; Eosinophils # 0.5 K/mcL (0.0-0.6); Eosinophils % 5.5 %; Hematocrit 28.7 % (37.5-50.1); Hemoglobin 10.1 g/dL (12.9-16.9); Immature Granulocytes % 1.3 % (0-4); Immature Platelets 12.5 % (1.1-6.1); Lymphocytes % 15.9 %; Mean Corpuscular HGB Conc 35.2 g/dL (31.6-35.5); Mean Corpuscular Hemoglobin 33.7 pg (28.0-33.3); Mean Corpuscular Volume 95.7 fL (83.0-100.0); Mean Platelet Volume 13.6 fL (9.4-12.4); Monocytes % 13.7 %; Neutrophils # 5.7 K/mcL (1.6-8.9); Platelet Count 179 K/mcL (140-400); Red Cell Distribution Width 13.6 % (11.5-14.5); Segmented Neutrophils % 62.8 %; White Blood Count 9.1 K/mcL (4.3-11.1)
[2019-10-19 02:32] LABS: Lymphocytes # 1.5 K/mcL (0.6-4.6); Monocytes # 1.3 K/mcL (0.0-1.3)
[2019-10-19 02:48] LABS: Calcium 10.1 mg/dL (8.6-10.3); Magnesium 0.9 mg/dL (1.6-2.6); Phosphorous 2.7 mg/dL (2.7-4.5)
[2019-10-19 03:44] LABS: Anisocytosis 1+ (Not Present)
[2019-10-19 03:45] LABS: Platelet Estimate Normal (Normal)
[2019-10-19] MEDS: Ringers Solution, Lactated 1,000 ML IVC SCH (04:07)
[2019-10-19] MEDS: *HR* Heparin 5,000 UNIT/ML VIAL SQ SCH ×3 (06:08→21:00)
[2019-10-19] MEDS: Loratadine 10 MG TABLET PO SCH (07:36)
[2019-10-19] MEDS: amLODIPine 5 MG TABLET PO SCH (07:36)
[2019-10-19] MEDS: Insulin LISPRO 300 UNITS/3 ML VIAL SQ SCH ×6 (07:36→21:01)
[2019-10-19] MEDS: Multivit/Ca/Min/Fe/FA 1 TAB TABLET PO SCH (07:36)
[2019-10-19] MEDS: Aspirin Enteric Coated 81 MG Tablet PO SCH (07:36)
[2019-10-19] MEDS: Metoprolol 100 MG TABLET PO SCH ×2 (07:36→20:57)
[2019-10-19] MEDS: calcium polycarbophiL 625 MG TABLET PO SCH (07:38)
[2019-10-19] MEDS ORDERED: Ringers Solution, Lactated 1,000 ML IVC SCH (08:15)
[2019-10-19] MEDS ORDERED: Insulin DETEMIR 100 UNIT/ML X5UNITS SQ SCH (09:00)
[2019-10-19 10:52] LABS: Albumin 3.4 g/dL (3.5-5.7); Calcium 10.1 mg/dL (8.6-10.3); Phosphorous 2.4 mg/dL (2.7-4.5)
[2019-10-19] MEDS: cefTRIAXone 1,000 MG in Water for inj. (sterile) 10 ML IVP SCH (16:15)
[2019-10-19] MEDS: Insulin DETEMIR 100 UNIT/ML X5UNITS SQ SCH (20:59)
[2019-10-20] MEDS: Ringers Solution, Lactated 1,000 ML IVC SCH (00:10)
[2019-10-20 03:07] LABS: Hematocrit 27.6 % (37.5-50.1); Hemoglobin 9.2 g/dL (12.9-16.9); Immature Platelets 10.6 % (1.1-6.1); Mean Corpuscular HGB Conc 33.3 g/dL (31.6-35.5); Mean Corpuscular Hemoglobin 31.4 pg (28.0-33.3); Mean Corpuscular Volume 94.2 fL (83.0-100.0); Red Blood Count 2.93 M/mcL (4.19-5.50); Red Cell Distribution Width 13.2 % (11.5-14.5); White Blood Count 9.3 K/mcL (4.3-11.1)
[2019-10-20 03:21] LABS: Calcium 9.5 mg/dL (8.6-10.3); Potassium 3.9 mEq/L (3.5-5.1)
[2019-10-20] MEDS: *HR* Heparin 5,000 UNIT/ML VIAL SQ SCH ×3 (05:26→20:32)
[2019-10-20] MEDS: Multivit/Ca/Min/Fe/FA 1 TAB TABLET PO SCH (07:53)
[2019-10-20] MEDS: Aspirin Enteric Coated 81 MG Tablet PO SCH (07:53)
[2019-10-20] MEDS: Metoprolol 100 MG TABLET PO SCH ×2 (07:53→20:27)
[2019-10-20] MEDS: amLODIPine 5 MG TABLET PO SCH (07:53)
[2019-10-20] MEDS: Loratadine 10 MG TABLET PO SCH (07:54)
[2019-10-20] MEDS: calcium polycarbophiL 625 MG TABLET PO SCH (07:54)
[2019-10-20] MEDS: Insulin LISPRO 300 UNITS/3 ML VIAL SQ SCH ×8 (07:55→20:28)
[2019-10-20] MEDS: Insulin DETEMIR 100 UNIT/ML X5UNITS SQ SCH ×2 (07:59→20:32)
[2019-10-21] MEDS: Ringers Solution, Lactated 1,000 ML IVC SCH ×3 (01:49→01:51)
[2019-10-21] MEDS: *HR* Heparin 5,000 UNIT/ML VIAL SQ SCH (05:36)
[2019-10-21] MEDS: Multivit/Ca/Min/Fe/FA 1 TAB TABLET PO SCH (08:43)
[2019-10-21] MEDS: Insulin LISPRO 300 UNITS/3 ML VIAL SQ SCH ×4 (08:43→11:48)
[2019-10-21] MEDS: amLODIPine 5 MG TABLET PO SCH (08:43)
[2019-10-21] MEDS: Metoprolol 100 MG TABLET PO SCH (08:43)
[2019-10-21] MEDS: calcium polycarbophiL 625 MG TABLET PO SCH (08:44)
[2019-10-21] MEDS: Aspirin Enteric Coated 81 MG Tablet PO SCH (08:44)
[2019-10-21] MEDS: Loratadine 10 MG TABLET PO SCH (08:44)
[2019-10-21] MEDS: Insulin DETEMIR 100 UNIT/ML X5UNITS SQ SCH (08:46)
[2019-10-21 09:57] LABS: Alpha 2 Globulin (PEP) 1.09 g/dL (0.48-1.05); Beta Globulin (PEP) 0.85 g/dL (0.48-1.10)
[2019-10-21 10:35] LABS: Albumin 3.2 g/dL (3.5-5.7); Calcium 9.8 mg/dL (8.6-10.3); Phosphorous 3.3 mg/dL (2.7-4.5); Potassium 3.8 mEq/L (3.5-5.1)
[2019-10-21 10:43] LABS: IFE Reflexed NOT DONE
[2019-10-21 11:26] VITALS: BP 114/58
== END 2019-10-21 12:20 | disposition home health service (06) | DRG 637 ==
LOC: EMEROOARM 13:51 → 2ANU 13:51 → SUATTDRO 17:16
PROVIDERS: ADMIT Internal Medicine; ATTEND Internal Medicine

== ENCOUNTER 2019-11-08 17:35 | Inpatient (IN) ==
[2019-11-08] MEDS ORDERED: Isovue-370 500 ML BOTTLE IVP ONE (17:44)
[2019-11-08] MEDS ORDERED: 0.9 % Sodium Chloride 1,000 ML IVC STA (17:55)
[2019-11-08 18:07] LABS: Basophils % 0.4 %; Eosinophils # 0.1 K/mcL (0.0-0.6); Eosinophils % 0.6 %; Hemoglobin 11.8 g/dL (12.9-16.9); Immature Granulocytes % 0.4 % (0-4); Lymphocytes # 1.3 K/mcL (0.6-4.6); Lymphocytes % 14.5 %; Mean Corpuscular HGB Conc 31.9 g/dL (31.6-35.5); Mean Corpuscular Hemoglobin 29.9 pg (28.0-33.3); Mean Corpuscular Volume 93.9 fL (83.0-100.0); Monocytes # 1.7 K/mcL (0.0-1.3); Monocytes % 19.3 %; Neutrophils # 5.8 K/mcL (1.6-8.9); Platelet Count 287 K/mcL (140-400); Red Blood Count 3.94 M/mcL (4.19-5.50); Red Cell Distribution Width 13.9 % (11.5-14.5); Segmented Neutrophils % 64.8 %
[2019-11-08 18:08] LABS: Platelet Estimate Normal (Normal)
[2019-11-08 18:12] LABS: INR 1.2
[2019-11-08 18:14] LABS: Activated Partial Thrombo Time 58.9 Seconds (26.0-36.0)
[2019-11-08 18:22] LABS: Albumin 4.1 g/dL (3.5-5.7); Albumin/Globulin Ratio 1.1 (1.1-2.2); Bilirubin,Total 0.6 mg/dL (0.3-1.0); Calcium 12.7 mg/dL (8.6-10.3); Globulin 3.7 g/dL (2.4-3.5); Magnesium 1.2 mg/dL (1.6-2.6); Total Protein 7.8 g/dL (6.4-8.9); Troponin I 0.03 ng/mL (< 0.04)
[2019-11-08 20:01] LABS: VBG HCO3 21 mEq/L (21-27); VBG PCO2 34 mmHg (41-51); VBG PH 7.39 pH Units (7.32-7.42); VBG PO2 120 mmHg (25-50)
[2019-11-08] MEDS ORDERED: *HR* FentaNYL (PF) 100 MCG/2 ML VIAL IVP ONE (20:34)
[2019-11-08] MEDS ORDERED: *HR* Dextrose 50 % in Water (Syg) 50 ML SYRINGE IVP PRN (22:34)
[2019-11-08] MEDS ORDERED: Dextrose Gel 15 GM/37.5 ML TUBE PO PRN ×2 (22:34)
[2019-11-08] MEDS ORDERED: D5% in Water 1,000 ML IVC PRN (22:34)
[2019-11-08] MEDS ORDERED: 0.9 % Sodium Chloride 1,000 ML IVC SCH (22:45)
[2019-11-08] MEDS: Insulin DETEMIR 100 UNIT/ML X5UNITS SQ SCH (23:49)
[2019-11-09 00:56] LABS: Basophils % 0.5 %; Eosinophils # 0.2 K/mcL (0.0-0.6); Eosinophils % 2.5 %; Hematocrit 33.6 % (37.5-50.1); Hemoglobin 10.9 g/dL (12.9-16.9); Immature Granulocytes % 0.7 % (0-4); Lymphocytes # 1.3 K/mcL (0.6-4.6); Lymphocytes % 14.9 %; Mean Corpuscular HGB Conc 32.4 g/dL (31.6-35.5); Mean Corpuscular Hemoglobin 31.2 pg (28.0-33.3); Mean Corpuscular Volume 96.3 fL (83.0-100.0); Mean Platelet Volume 12.1 fL (9.4-12.4); Monocytes # 1.3 K/mcL (0.0-1.3); Monocytes % 14.3 %; Neutrophils # 5.9 K/mcL (1.6-8.9); Platelet Count 235 K/mcL (140-400); Red Blood Count 3.49 M/mcL (4.19-5.50); Segmented Neutrophils % 67.1 %; White Blood Count 8.8 K/mcL (4.3-11.1)
[2019-11-09 00:58] LABS: Calcium 11.8 mg/dL (8.6-10.3); Potassium 4.2 mEq/L (3.5-5.1)
[2019-11-09] MEDS ORDERED: *HR* Heparin 5,000 UNIT/ML VIAL IVP ONE (01:25)
[2019-11-09] MEDS ORDERED: *HR* Heparin 5,000 UNIT/ML VIAL IVP PRN ×2 (01:25)
[2019-11-09] MEDS ORDERED: Heparin 25,000 UNIT/250 ML D5W 25,000 UNIT/250 ML IV.SOLN IVC SCH (01:30)
[2019-11-09] MEDS: Insulin LISPRO 300 UNITS/3 ML VIAL SQ SCH ×7 (02:50→21:58)
[2019-11-09] MEDS ORDERED: *HR* Metoprolol 5 MG/5 ML VIAL IVP ONE (03:26)
[2019-11-09] MEDS: Aspirin Enteric Coated 81 MG Tablet PO SCH (08:26)
[2019-11-09] MEDS: amLODIPine 5 MG TABLET PO SCH (08:27)
[2019-11-09] MEDS: allopurinoL 100 MG TABLET PO SCH (08:27)
[2019-11-09] MEDS ORDERED: Acetaminophen 325 MG TABLET PO PRN (09:10)
[2019-11-09] MEDS ORDERED: Insulin LISPRO 300 UNITS/3 ML VIAL SQ SCH ×2 (12:00)
[2019-11-09] MEDS: Isosorbide MONOnitrate (24 HR) 30 MG TAB.ER.24H PO SCH (15:13)
[2019-11-09] MEDS: Metoprolol 100 MG TABLET PO SCH (21:55)
[2019-11-09] MEDS: Insulin DETEMIR 100 UNIT/ML X5UNITS SQ SCH (22:01)
[2019-11-10 00:26] LABS: Basophils # 0.1 K/mcL (0.0-0.2); Basophils % 0.7 %; Eosinophils # 0.3 K/mcL (0.0-0.6); Eosinophils % 4.1 %; Hematocrit 30.1 % (37.5-50.1); Hemoglobin 9.7 g/dL (12.9-16.9); Immature Granulocytes % 0.5 % (0-4); Lymphocytes # 1.3 K/mcL (0.6-4.6); Lymphocytes % 16.4 %; Mean Corpuscular HGB Conc 32.2 g/dL (31.6-35.5); Mean Corpuscular Hemoglobin 30.7 pg (28.0-33.3); Mean Corpuscular Volume 95.3 fL (83.0-100.0); Mean Platelet Volume 11.8 fL (9.4-12.4); Monocytes # 1.2 K/mcL (0.0-1.3); Monocytes % 15.3 %; Neutrophils # 4.8 K/mcL (1.6-8.9); Platelet Count 233 K/mcL (140-400); Red Blood Count 3.16 M/mcL (4.19-5.50); White Blood Count 7.6 K/mcL (4.3-11.1)
[2019-11-10 00:40] LABS: Potassium 3.9 mEq/L (3.5-5.1)
[2019-11-10 00:41] LABS: Calcium 11.6 mg/dL (8.6-10.3)
[2019-11-10] MEDS: Insulin LISPRO 300 UNITS/3 ML VIAL SQ SCH ×2 (07:57→12:18)
[2019-11-10] MEDS: Isosorbide MONOnitrate (24 HR) 30 MG TAB.ER.24H PO SCH (08:09)
[2019-11-10] MEDS: Metoprolol 100 MG TABLET PO SCH (08:09)
[2019-11-10] MEDS: Aspirin Enteric Coated 81 MG Tablet PO SCH (08:09)
[2019-11-10] MEDS: amLODIPine 5 MG TABLET PO SCH (08:10)
[2019-11-10] MEDS: allopurinoL 100 MG TABLET PO SCH (08:10)
[2019-11-10] MEDS ORDERED: Loratadine 10 MG TABLET PO SCH (09:00)
[2019-11-10] MEDS ORDERED: [UNRECOGNIZED DRUG - REMARK] PO SCH (09:00)
[2019-11-10] MEDS ORDERED: [UNRECOGNIZED DRUG - OTHER] PO SCH (09:00)
[2019-11-10] MEDS ORDERED: NON-FORMULARY MEDICATION 1 EACH EACH (Vit C/E/Zn/Coppr/Lutein/Zeaxan [Preservision Areds 2 PO SCH (09:00)
[2019-11-10] MEDS ORDERED: Multivit/Ca/Min/Fe/FA 1 TAB TABLET PO SCH (09:00)
[2019-11-10 10:53] VITALS: BP 108/62
== END 2019-11-10 13:43 | disposition home or self-care (01) | DRG 281 ==
LOC: 2ANU 17:35 → EMEROOARM 17:35 → SUATTDRO 20:24 → 2ANU 21:10
PROVIDERS: ADMIT Internal Medicine; ATTEND Family Medicine

== ENCOUNTER 2019-12-23 13:33 | Inpatient (IN) ==
[2019-12-23] MEDS ORDERED: 0.9 % Sodium Chloride 1,000 ML IVC ONE (13:49)
[2019-12-23] MEDS ORDERED: 0.9 % Sodium Chloride 1,000 ML ONE (13:52)
[2019-12-23 14:02] LABS: Eosinophils # 0.1 K/mcL (0.0-0.6); Mean Corpuscular HGB Conc 33.3 g/dL (31.6-35.5); Mean Corpuscular Hemoglobin 31.3 pg (28.0-33.3); Mean Corpuscular Volume 93.8 fL (83.0-100.0); Mean Platelet Volume 11.8 fL (9.4-12.4); Monocytes # 0.1 K/mcL (0.0-1.3); Neutrophils # 0.2 K/mcL (1.6-8.9); Platelet Count 178 K/mcL (140-400); Red Blood Count 2.56 M/mcL (4.19-5.50); Red Cell Distribution Width 14.5 % (11.5-14.5)
[2019-12-23 14:17] LABS: Activated Partial Thrombo Time 43.1 Seconds (26.0-36.0)
[2019-12-23 14:18] LABS: INR 1.3
[2019-12-23 14:21] LABS: Bilirubin,Urine Negative (Negative); Blood,Urine Negative (Negative); Clarity,Urine Clear (Clear); Color,Urine Light-Yellow (Yellow); Glucose,Urine (UA) Normal (Normal); Ketones,Urine Negative (Negative); Leukocyte Esterase,Urine Negative (Negative); Nitrite,Urine Negative (Negative); Protein,Urine 100 mg/dL (Neg-Trace); RBC,Urine 0-3 per hpf (0-3); Specific Gravity,Urine 1.013 (1.010-1.025); Urobilinogen,Urine Normal (Normal); WBC,Urine 0-3 per hpf (0-3)
[2019-12-23 14:24] LABS: Alanine Aminotransferase 55 Units/L (7-52); Albumin 3.3 g/dL (3.5-5.7); Albumin/Globulin Ratio 1.1 (1.1-2.2); Alkaline Phosphatase 223 Units/L (34-104); Aspartate Amino Transferase 32 Units/L (13-39); BUN/Creatinine Ratio 15 (6-26); Bilirubin,Direct 0.1 mg/dL (0.0-0.2); Bilirubin,Indirect 0.2 mg/dL (0.0-1.0); Bilirubin,Total 0.3 mg/dL (0.3-1.0); Blood Urea Nitrogen 43 mg/dL (8-23); Calcium 8.7 mg/dL (8.6-10.3); Carbon Dioxide 25 mEq/L (23-29); Chloride 104 mEq/L (98-107); Globulin 3.1 g/dL (2.4-3.5); Glucose 94 mg/dL (70-105); Lipase 18 Units/L (11-82); Magnesium 0.5 mg/dL (1.6-2.6); Osmolality,Calculated 301 (280-300); Phosphorous 2.9 mg/dL (2.7-4.5); Potassium 4.6 mEq/L (3.5-5.1); Sodium 140 mEq/L (136-145); Total Protein 6.4 g/dL (6.4-8.9); Troponin I < 0.03 ng/mL (< 0.04); eGFR For African Americans 26 (> 60); eGFR For Non-African Americans 22 (> 60)
[2019-12-23 14:25] LABS: Lymphocytes # 0.3 K/mcL (0.6-4.6)
[2019-12-23 14:27] LABS: White Blood Count 0.6 K/mcL (4.3-11.1)
[2019-12-23] MEDS ORDERED: Piperacillin/Tazobactam 3.375 GM in Water for inj. (sterile) 20 ML IVP ONE (14:33)
[2019-12-23 14:43] LABS: Platelet Estimate Normal (Normal)
[2019-12-23 14:44] LABS: Anisocytosis 1+ (Not Present)
[2019-12-23] MEDS ORDERED: Vancomycin 500 MG in 0.9 % Sodium Chloride 250 ML IVPB SCH (15:00)
[2019-12-23] MEDS ORDERED: Naloxone 0.4 MG/ML INJ IVP PRN (15:27)
[2019-12-23] MEDS ORDERED: 0.9 % Sodium Chloride 1,000 ML IVC SCH (15:30)
[2019-12-23] MEDS ORDERED: D5% in Water 1,000 ML IVC PRN (15:31)
[2019-12-23] MEDS ORDERED: Dextrose Gel 15 GM/37.5 ML TUBE PO PRN ×2 (15:31)
[2019-12-23] MEDS ORDERED: *HR* Dextrose 50 % in Water (Vial) 50 ML VIAL IVP PRN (15:31)
[2019-12-23] MEDS ORDERED: Acetaminophen 650 MG RECTAL SUPP RC ONE (15:51)
[2019-12-23] MEDS ORDERED: Cefepime HCl 2,000 MG in Water for inj. (sterile) 20 ML IVP SCH (16:00)
[2019-12-23] MEDS ORDERED: Vancomycin 1 EACH in 0.9 % Sodium Chloride 250 ML IVPB SCH (16:00)
[2019-12-23] MEDS ORDERED: Insulin LISPRO 300 UNITS/3 ML VIAL SQ SCH ×2 (16:30→16:45)
[2019-12-23 17:17] LABS: Basophils % 2.2 %; Eosinophils % 4.3 %; Hemoglobin 7.3 g/dL (12.9-16.9); Immature Granulocytes % 2.2 % (0-4); Lymphocytes # 0.2 K/mcL (0.6-4.6); Lymphocytes % 41.3 %; Mean Corpuscular HGB Conc 31.7 g/dL (31.6-35.5); Mean Corpuscular Volume 94.7 fL (83.0-100.0); Mean Platelet Volume 11.6 fL (9.4-12.4); Monocytes # 0.1 K/mcL (0.0-1.3); Neutrophils # 0.2 K/mcL (1.6-8.9); Platelet Count 153 K/mcL (140-400); Red Blood Count 2.43 M/mcL (4.19-5.50); Red Cell Distribution Width 14.4 % (11.5-14.5)
[2019-12-23 17:22] LABS: White Blood Count 0.5 K/mcL (4.3-11.1)
[2019-12-23 17:46] LABS: Reactive Lymphocytes Present (Not Present)
[2019-12-23] MEDS: D5% in 0.9% NACL 1,000 ML IVC SCH (17:54)
[2019-12-23] MEDS ORDERED: Insulin DETEMIR 100 UNIT/ML X5UNITS SQ SCH (21:00)
[2019-12-23] MEDS: Metoprolol 100 MG TABLET PO SCH (23:37)
[2019-12-24] MEDS ORDERED: Acetaminophen IV 500 MG/50 ML INFUS..BTL IVPB ONE (00:05)
[2019-12-24] MEDS: Insulin LISPRO 300 UNITS/3 ML VIAL SQ SCH ×5 (00:44→21:08)
[2019-12-24 01:22] LABS: Basophils % 1.7 %; Hematocrit 21.9 % (37.5-50.1); Immature Granulocytes % 0.9 % (0-4); Lymphocytes # 0.3 K/mcL (0.6-4.6); Lymphocytes % 27.4 %; Mean Corpuscular Hemoglobin 30.4 pg (28.0-33.3); Mean Corpuscular Volume 95.2 fL (83.0-100.0); Monocytes # 0.1 K/mcL (0.0-1.3); Neutrophils # 0.7 K/mcL (1.6-8.9); Platelet Count 137 K/mcL (140-400); Red Cell Distribution Width 14.6 % (11.5-14.5); White Blood Count 1.2 K/mcL (4.3-11.1)
[2019-12-24 01:47] LABS: BUN/Creatinine Ratio 14 (6-26); Blood Urea Nitrogen 38 mg/dL (8-23); Calcium 7.5 mg/dL (8.6-10.3); Carbon Dioxide 18 mEq/L (23-29); Chloride 106 mEq/L (98-107); Glucose 344 mg/dL (70-105); Magnesium 0.5 mg/dL (1.6-2.6); Osmolality,Calculated 305 (280-300); Phosphorous 4.7 mg/dL (2.7-4.5); Potassium 4.7 mEq/L (3.5-5.1); Sodium 136 mEq/L (136-145); eGFR For African Americans 27 (> 60); eGFR For Non-African Americans 22 (> 60)
[2019-12-24 01:52] LABS: Acinetobacter baumannii by PCR Not Detected (Not Detect); Candida albicans by PCR Not Detected (Not Detect); Candida glabrata by PCR Not Detected (Not Detect); Candida krusei by PCR Not Detected (Not Detect); Candida parapsilosis by PCR Not Detected (Not Detect); Candida tropicalis by PCR Not Detected (Not Detect); Enterobacter cloacae Cmplx PCR Not Detected (Not Detect); Enterobacteriaceae by PCR Not Detected (Not Detect); Enterococcus by PCR Not Detected (Not Detect); Escherichia coli by PCR Not Detected (Not Detect); Klebsiella oxytoca by PCR Not Detected (Not Detect); Klebsiella pneumoniae by PCR Not Detected (Not Detect); Proteus by PCR Not Detected (Not Detect); Pseudomonas aeruginosa by PCR Not Detected (Not Detect); Serratia marcescens by PCR Not Detected (Not Detect); Staphylococcus aureus by PCR DETECTED (Not Detect); Streptococcus agalactiae(B)PCR Not Detected (Not Detect); Streptococcus by PCR Not Detected (Not Detect); Streptococcus pneumoniae PCR Not Detected (Not Detect); Streptococcus pyogenes (A) PCR Not Detected (Not Detect); blaKPC Carbapenem-Resist Gene Not Detected (Not Detect); mecA Methicillin-Resist Gene DETECTED (Not Detect); vanA/B Vancomycin-Resist Genes Not Detected (Not Detect)
[2019-12-24 01:59] LABS: Hypochromasia Present (Not Present); Platelet Estimate Normal (Normal)
[2019-12-24 02:06] LABS: D-Dimer 6175 ng/mLFEU (0-500); Ferritin > 1500 ng/mL (20-250); Fibrinogen 799 mg/dL (169-393)
[2019-12-24] MEDS: Cefepime HCl 1,000 MG in Water for inj. (sterile) 10 ML IVP SCH ×2 (05:02→17:52)
[2019-12-24] MEDS: D5% in 0.9% NACL 1,000 ML IVC SCH (05:03)
[2019-12-24] MEDS ORDERED: *HR* Enoxaparin 30 MG/0.3 ML SYRINGE SQ SCH (06:00)
[2019-12-24] MEDS ORDERED: Acetaminophen IV 1,000 MG/100 ML INFUS..BTL IVPB ONE ×2 (07:48→22:08)
[2019-12-24] MEDS: Metoprolol 100 MG TABLET PO SCH ×2 (09:52→20:41)
[2019-12-24] MEDS: Isosorbide MONOnitrate (24 HR) 30 MG TAB.ER.24H PO SCH (09:52)
[2019-12-24] MEDS: allopurinoL 100 MG TABLET PO SCH (09:52)
[2019-12-24] MEDS: Aspirin Enteric Coated 81 MG Tablet PO SCH (09:54)
[2019-12-24] MEDS ORDERED: Perflutren Lipid Microsphere 1.3 ML in 0.9 % Sodium Chloride 8.7 ML IVP ONE (11:51)
[2019-12-24] MEDS: Insulin DETEMIR 100 UNIT/ML X5UNITS SQ SCH ×2 (13:48→20:41)
[2019-12-24] MEDS: Ringers Solution, Lactated 500 ML IVC SCH (13:50)
[2019-12-24] MEDS ORDERED: Acetaminophen 325 MG TABLET PO PRN (14:40)
[2019-12-24] MEDS ORDERED: Vancomycin 1,500 MG/265 ML IV.SOLN IVPB ONE (17:52)
[2019-12-24] MEDS: MetroNIDAZOLE 500 MG/100 ML 500 MG/100 ML BAG IVPB SCH (17:52)
[2019-12-25] MEDS: MetroNIDAZOLE 500 MG/100 ML 500 MG/100 ML BAG IVPB SCH ×4 (00:17→23:40)
[2019-12-25 01:38] LABS: Basophils # 0.1 K/mcL (0.0-0.2); Basophils % 1.3 %; Eosinophils # 0.1 K/mcL (0.0-0.6); Eosinophils % 2.1 %; Hematocrit 21.7 % (37.5-50.1); Immature Granulocytes % 1.3 % (0-4); Lymphocytes # 0.5 K/mcL (0.6-4.6); Lymphocytes % 12.7 %; Mean Corpuscular HGB Conc 32.3 g/dL (31.6-35.5); Mean Corpuscular Hemoglobin 30.4 pg (28.0-33.3); Mean Corpuscular Volume 94.3 fL (83.0-100.0); Mean Platelet Volume 11.8 fL (9.4-12.4); Monocytes # 0.2 K/mcL (0.0-1.3); Monocytes % 6.1 %; Neutrophils # 2.9 K/mcL (1.6-8.9); Platelet Count 146 K/mcL (140-400); Segmented Neutrophils % 76.5 %; White Blood Count 3.8 K/mcL (4.3-11.1)
[2019-12-25 01:54] LABS: Calcium 7.7 mg/dL (8.6-10.3)
[2019-12-25 02:08] LABS: Platelet Estimate Normal (Normal); Reactive Lymphocytes Present (Not Present)
[2019-12-25] MEDS: Ringers Solution, Lactated 500 ML IVC SCH ×4 (02:22→22:51)
[2019-12-25] MEDS: Calcium Gluconate 1gm/50mL 1 GM/50 ML BAG IVPB SCH ×2 (03:10→03:56)
[2019-12-25] MEDS: Cefepime HCl 1,000 MG in Water for inj. (sterile) 10 ML IVP SCH ×2 (03:11→17:52)
[2019-12-25 07:53] LABS: Magnesium 1.5 mg/dL (1.6-2.6)
[2019-12-25] MEDS: Insulin LISPRO 300 UNITS/3 ML VIAL SQ SCH ×4 (10:07→20:02)
[2019-12-25] MEDS: Aspirin Enteric Coated 81 MG Tablet PO SCH (10:09)
[2019-12-25] MEDS: Isosorbide MONOnitrate (24 HR) 30 MG TAB.ER.24H PO SCH (10:10)
[2019-12-25] MEDS: allopurinoL 100 MG TABLET PO SCH (10:10)
[2019-12-25] MEDS: Metoprolol 100 MG TABLET PO SCH ×2 (10:10→20:13)
[2019-12-25] MEDS: Insulin DETEMIR 100 UNIT/ML X5UNITS SQ SCH ×2 (10:13→20:03)
[2019-12-25] MEDS ORDERED: Vancomycin 1,250 MG/262.5 ML IV.SOLN IVPB ONE (18:00)
[2019-12-26] MEDS: Cefepime HCl 1,000 MG in Water for inj. (sterile) 10 ML IVP SCH (02:49)
[2019-12-26] MEDS: Ringers Solution, Lactated 500 ML IVC SCH ×6 (02:50→18:47)
[2019-12-26 07:09] LABS: Hematocrit 19.2 % (37.5-50.1); Hemoglobin 6.2 g/dL (12.9-16.9); Mean Corpuscular HGB Conc 32.3 g/dL (31.6-35.5); Mean Corpuscular Hemoglobin 30.1 pg (28.0-33.3); Mean Corpuscular Volume 93.2 fL (83.0-100.0); Mean Platelet Volume 12.2 fL (9.4-12.4); Platelet Count 203 K/mcL (140-400); Red Blood Count 2.06 M/mcL (4.19-5.50); Red Cell Distribution Width 14.8 % (11.5-14.5); White Blood Count 14.9 K/mcL (4.3-11.1)
[2019-12-26 07:27] LABS: Calcium 7.8 mg/dL (8.6-10.3); Potassium 3.5 mEq/L (3.5-5.1)
[2019-12-26] MEDS ORDERED: 0.9 % Sodium Chloride 250 ML IVC SCH (09:00)
[2019-12-26] MEDS ORDERED: Heparin 1,000 UNITS/500 mL 500 ML ONE (09:16)
[2019-12-26] MEDS: Isosorbide MONOnitrate (24 HR) 30 MG TAB.ER.24H PO SCH (12:31)
[2019-12-26] MEDS: allopurinoL 100 MG TABLET PO SCH (12:31)
[2019-12-26] MEDS: Aspirin Enteric Coated 81 MG Tablet PO SCH (12:31)
[2019-12-26] MEDS: Metoprolol 100 MG TABLET PO SCH ×2 (12:31→22:55)
[2019-12-26] MEDS: Amoxicillin/Clavulanate 500 MG TABLET PO SCH (17:40)
[2019-12-26] MEDS: Insulin LISPRO 300 UNITS/3 ML VIAL SQ SCH ×2 (17:43→22:58)
[2019-12-26] MEDS: *HR* HYDROcodone/Acet 5/325 mg TABLET PO PRN (22:58)
[2019-12-27 02:34] LABS: Hematocrit 22.4 % (37.5-50.1); Hemoglobin 7.6 g/dL (12.9-16.9); Mean Corpuscular HGB Conc 33.9 g/dL (31.6-35.5); Mean Corpuscular Hemoglobin 30.4 pg (28.0-33.3); Mean Corpuscular Volume 89.6 fL (83.0-100.0); Mean Platelet Volume 11.6 fL (9.4-12.4); Platelet Count 283 K/mcL (140-400); Red Cell Distribution Width 16.3 % (11.5-14.5); White Blood Count 18.6 K/mcL (4.3-11.1)
[2019-12-27 02:58] LABS: Calcium 7.5 mg/dL (8.6-10.3)
[2019-12-27] MEDS: Ringers Solution, Lactated 500 ML IVC SCH ×6 (06:57→22:22)
[2019-12-27] MEDS: Aspirin Enteric Coated 81 MG Tablet PO SCH (10:15)
[2019-12-27] MEDS: allopurinoL 100 MG TABLET PO SCH (10:16)
[2019-12-27] MEDS: Amoxicillin/Clavulanate 500 MG TABLET PO SCH ×2 (10:16→17:36)
[2019-12-27] MEDS: Isosorbide MONOnitrate (24 HR) 30 MG TAB.ER.24H PO SCH (10:16)
[2019-12-27] MEDS: Metoprolol 100 MG TABLET PO SCH ×2 (10:16→21:49)
[2019-12-27] MEDS: Insulin LISPRO 300 UNITS/3 ML VIAL SQ SCH ×5 (10:18→22:22)
[2019-12-27] MEDS ORDERED: Vancomycin 500 MG in 0.9 % Sodium Chloride Mini Bag 100 ML IVPB ONE (21:40)
[2019-12-27] MEDS ORDERED: Ondansetron 4 MG/2 ML VIAL IVP ONE (21:43)
[2019-12-28] MEDS: *HR* HYDROcodone/Acet 5/325 mg TABLET PO PRN (03:30)
[2019-12-28 06:03] LABS: Calcium 7.7 mg/dL (8.6-10.3); Magnesium 1.1 mg/dL (1.6-2.6); Potassium 3.8 mEq/L (3.5-5.1)
[2019-12-28] MEDS: Ringers Solution, Lactated 500 ML IVC SCH ×3 (07:32→07:51)
[2019-12-28] MEDS: Insulin LISPRO 300 UNITS/3 ML VIAL SQ SCH ×4 (08:26→20:51)
[2019-12-28] MEDS: Amoxicillin/Clavulanate 500 MG TABLET PO SCH ×2 (08:28→17:08)
[2019-12-28] MEDS: Isosorbide MONOnitrate (24 HR) 30 MG TAB.ER.24H PO SCH (08:28)
[2019-12-28] MEDS: Metoprolol 100 MG TABLET PO SCH ×2 (08:28→20:38)
[2019-12-28] MEDS: allopurinoL 100 MG TABLET PO SCH (08:28)
[2019-12-28] MEDS: Aspirin Enteric Coated 81 MG Tablet PO SCH (08:28)
[2019-12-28] MEDS ORDERED: Aminoglycoside Consult 1 EACH MC ONE (16:29)
[2019-12-28] MEDS: Insulin DETEMIR 100 UNIT/ML X5UNITS SQ SCH (20:38)
[2019-12-29 07:53] LABS: Calcium 7.9 mg/dL (8.6-10.3); Potassium 3.5 mEq/L (3.5-5.1)
[2019-12-29] MEDS: Insulin DETEMIR 100 UNIT/ML X5UNITS SQ SCH ×2 (08:14→22:15)
[2019-12-29] MEDS: MetroNIDAZOLE 500 MG/100 ML 500 MG/100 ML BAG IVPB SCH (08:14)
[2019-12-29 08:38] LABS: Mean Platelet Volume 11.2 fL (9.4-12.4)
[2019-12-29 08:40] LABS: Hematocrit 25.8 % (37.5-50.1); Hemoglobin 8.7 g/dL (12.9-16.9); Mean Corpuscular HGB Conc 33.7 g/dL (31.6-35.5); Mean Corpuscular Hemoglobin 30.5 pg (28.0-33.3); Mean Corpuscular Volume 90.5 fL (83.0-100.0); Nucleated Red Blood Cells 0.2 /100 WBC (0); Platelet Count 459 K/mcL (140-400); Red Blood Count 2.85 M/mcL (4.19-5.50); Red Cell Distribution Width 15.5 % (11.5-14.5); White Blood Count 26.5 K/mcL (4.3-11.1)
[2019-12-29] MEDS: Aspirin Enteric Coated 81 MG Tablet PO SCH (09:07)
[2019-12-29] MEDS: Amoxicillin/Clavulanate 500 MG TABLET PO SCH ×2 (09:07→17:58)
[2019-12-29] MEDS: Isosorbide MONOnitrate (24 HR) 30 MG TAB.ER.24H PO SCH (09:07)
[2019-12-29] MEDS: Metoprolol 100 MG TABLET PO SCH ×2 (09:07→20:10)
[2019-12-29] MEDS: allopurinoL 100 MG TABLET PO SCH (09:07)
[2019-12-29] MEDS: Insulin LISPRO 300 UNITS/3 ML VIAL SQ SCH ×4 (09:08→22:15)
[2019-12-29 09:12] LABS: Lymphocytes # 1.9 K/mcL (0.6-4.6); Monocytes # 1.9 K/mcL (0.0-1.3); Neutrophils # 22.8 K/mcL (1.6-8.9); Platelet Estimate Increased (Normal)
[2019-12-29 09:14] LABS: Dohle Bodies Present (Not Present); Large Platelets Present (Not Present)
[2019-12-29] MEDS: *HR* HYDROcodone/Acet 5/325 mg TABLET PO PRN (22:15)
[2019-12-30] MEDS ORDERED: CeFAZolin 2,000 MG/50 ML BAG IVPB ONE ×2 (08:20→13:00)
[2019-12-30 08:37] LABS: Calcium 7.3 mg/dL (8.6-10.3); Potassium 3.4 mEq/L (3.5-5.1)
[2019-12-30 08:48] LABS: Hematocrit 27.1 % (37.5-50.1); Hemoglobin 8.8 g/dL (12.9-16.9); Mean Corpuscular HGB Conc 32.5 g/dL (31.6-35.5); Mean Corpuscular Hemoglobin 29.8 pg (28.0-33.3); Mean Corpuscular Volume 91.9 fL (83.0-100.0); Mean Platelet Volume 10.5 fL (9.4-12.4); Nucleated Red Blood Cells 0.3 /100 WBC (0); Platelet Count 649 K/mcL (140-400); Red Blood Count 2.95 M/mcL (4.19-5.50); Red Cell Distribution Width 15.7 % (11.5-14.5)
[2019-12-30] MEDS: *HR* Midazolam HCl 2 MG/2 ML VIAL IVP ONE ×2 (08:53→19:14)
[2019-12-30] MEDS: *HR* FentaNYL (PF) 100 MCG/2 ML VIAL IVP ONE ×2 (08:53→19:13)
[2019-12-30] MEDS: allopurinoL 100 MG TABLET PO SCH (09:04)
[2019-12-30] MEDS: Isosorbide MONOnitrate (24 HR) 30 MG TAB.ER.24H PO SCH (09:04)
[2019-12-30] MEDS: Amoxicillin/Clavulanate 500 MG TABLET PO SCH ×2 (09:04→18:12)
[2019-12-30] MEDS: Aspirin Enteric Coated 81 MG Tablet PO SCH (09:05)
[2019-12-30] MEDS: Metoprolol 100 MG TABLET PO SCH ×2 (09:05→21:17)
[2019-12-30 09:28] LABS: Lymphocytes # 0.5 K/mcL (0.6-4.6); Monocytes # 3.6 K/mcL (0.0-1.3); Neutrophils # 21.3 K/mcL (1.6-8.9); Platelet Estimate Increased (Normal)
[2019-12-30 09:29] LABS: Anisocytosis 1+ (Not Present)
[2019-12-30] MEDS: Insulin LISPRO 300 UNITS/3 ML VIAL SQ SCH ×4 (10:43→21:16)
[2019-12-30] MEDS ORDERED: Lidocaine/EPI 1:100k 1% 50 ML VIAL ONE (12:30)
[2019-12-30] MEDS ORDERED: Heparin 1,000 UNITS/500 mL 500 ML ONE (12:30)
[2019-12-30] MEDS ORDERED: *HR* Midazolam HCl 2 MG/2 ML VIAL IVP ONE (12:45)
[2019-12-30] MEDS ORDERED: *HR* FentaNYL (PF) 100 MCG/2 ML VIAL IVP ONE (12:45)
[2019-12-30] MEDS: Insulin DETEMIR 100 UNIT/ML X5UNITS SQ SCH (21:28)
[2019-12-31 06:07] LABS: Hematocrit 25.4 % (37.5-50.1); Hemoglobin 8.4 g/dL (12.9-16.9); Mean Corpuscular HGB Conc 33.1 g/dL (31.6-35.5); Mean Corpuscular Hemoglobin 29.9 pg (28.0-33.3); Mean Corpuscular Volume 90.4 fL (83.0-100.0); Mean Platelet Volume 10.4 fL (9.4-12.4); Nucleated Red Blood Cells 0.2 /100 WBC (0); Platelet Count 696 K/mcL (140-400); Red Blood Count 2.81 M/mcL (4.19-5.50); Red Cell Distribution Width 15.4 % (11.5-14.5); White Blood Count 24.1 K/mcL (4.3-11.1)
[2019-12-31 06:22] LABS: Calcium 7.2 mg/dL (8.6-10.3); Potassium 3.4 mEq/L (3.5-5.1)
[2019-12-31 06:30] LABS: Lymphocytes # 0.5 K/mcL (0.6-4.6); Monocytes # 1.5 K/mcL (0.0-1.3); Neutrophils # 21.2 K/mcL (1.6-8.9); Platelet Estimate Increased (Normal)
[2019-12-31 06:31] LABS: Polychromasia 1+ (Not Present)
[2019-12-31 07:50] VITALS: BP 146/80
[2019-12-31] MEDS: Metoprolol 100 MG TABLET PO SCH (10:57)
[2019-12-31] MEDS: Aspirin Enteric Coated 81 MG Tablet PO SCH (10:57)
[2019-12-31] MEDS: Isosorbide MONOnitrate (24 HR) 30 MG TAB.ER.24H PO SCH (10:57)
[2019-12-31] MEDS: allopurinoL 100 MG TABLET PO SCH (10:57)
[2019-12-31] MEDS: Insulin LISPRO 300 UNITS/3 ML VIAL SQ SCH ×2 (10:58→13:15)
[2019-12-31] MEDS: Amoxicillin/Clavulanate 500 MG TABLET PO SCH (10:58)
[2019-12-31] MEDS: *HR* HYDROcodone/Acet 5/325 mg TABLET PO PRN (10:59)
== END 2019-12-31 16:30 | DRG 314 ==
LOC: EMEROOARM 13:33 → 2NENU 13:33 → SUATTDRO 15:40 → 2NENU 16:45 → SUATTDRO 12-24 14:59 → 3ANU 12-25 16:55
PROVIDERS: ADMIT Internal Medicine; ATTEND Internal Medicine

== ENCOUNTER 2020-01-21 02:57 | Observation (INO) ==
[2020-01-21] MEDS ORDERED: Oxymetazoline Nasal SPRAY BOTTLE NS ONE (03:23)
[2020-01-21 04:09] LABS: Basophils # 0.1 K/mcL (0.0-0.2); Basophils % 1.9 %; Eosinophils # 0.5 K/mcL (0.0-0.6); Eosinophils % 8.5 %; Hematocrit 24.5 % (37.5-50.1); Hemoglobin 7.7 g/dL (12.9-16.9); Immature Granulocytes % 0.5 % (0-4); Lymphocytes # 1.3 K/mcL (0.6-4.6); Lymphocytes % 21.4 %; Mean Corpuscular HGB Conc 31.4 g/dL (31.6-35.5); Mean Corpuscular Hemoglobin 28.8 pg (28.0-33.3); Mean Corpuscular Volume 91.8 fL (83.0-100.0); Monocytes # 1.1 K/mcL (0.0-1.3); Monocytes % 16.9 %; Neutrophils # 3.2 K/mcL (1.6-8.9); Platelet Count 413 K/mcL (140-400); Red Blood Count 2.67 M/mcL (4.19-5.50); Red Cell Distribution Width 15.7 % (11.5-14.5); Segmented Neutrophils % 50.8 %; White Blood Count 6.3 K/mcL (4.3-11.1)
[2020-01-21 04:20] LABS: INR 1.3; Prothrombin Time 14.2 Seconds (9.4-12.1)
[2020-01-21 04:22] LABS: Activated Partial Thrombo Time 48.6 Seconds (26.0-36.0)
[2020-01-21 04:31] LABS: Calcium 6.6 mg/dL (8.6-10.3); Potassium 4.3 mEq/L (3.5-5.1)
[2020-01-21] MEDS ORDERED: Bacitracin/Polymyxin B PACKET TP ONE (06:33)
[2020-01-21] MEDS ORDERED: Ondansetron ODT 4 MG TAB.RAPDIS SL PRN (08:02)
[2020-01-21] MEDS ORDERED: Naloxone 0.4 MG/ML INJ IVP PRN (08:02)
[2020-01-21] MEDS ORDERED: *HR* HYDROcodone/Acet 5/325 mg TABLET PO PRN (08:09)
[2020-01-21] MEDS ORDERED: D5% in Water 1,000 ML IVC PRN (08:15)
[2020-01-21] MEDS ORDERED: *HR* Dextrose 50 % in Water (Vial) 50 ML VIAL IVP PRN (08:15)
[2020-01-21] MEDS ORDERED: Dextrose Gel 15 GM/37.5 ML TUBE PO PRN ×2 (08:15)
[2020-01-21 10:07] LABS: Hematocrit 24.1 % (37.5-50.1); Hemoglobin 7.6 g/dL (12.9-16.9)
[2020-01-21] MEDS: Isosorbide MONOnitrate (24 HR) 30 MG TAB.ER.24H PO SCH (10:19)
[2020-01-21] MEDS: amLODIPine 5 MG TABLET PO SCH (10:19)
[2020-01-21] MEDS: Loratadine 10 MG TABLET PO SCH (10:19)
[2020-01-21] MEDS: Metoprolol 100 MG TABLET PO SCH ×2 (10:19→21:09)
[2020-01-21] MEDS: allopurinoL 100 MG TABLET PO SCH (10:19)
[2020-01-21] MEDS: Insulin LISPRO 300 UNITS/3 ML VIAL SQ SCH ×2 (13:02→17:22)
[2020-01-21] MEDS: cephALEXin 500 MG CAPSULE PO SCH ×2 (14:17→21:09)
[2020-01-21 17:06] LABS: Hematocrit 22.6 % (37.5-50.1); Hemoglobin 7.2 g/dL (12.9-16.9)
[2020-01-21] MEDS ORDERED: Insulin LISPRO 300 UNITS/3 ML VIAL SQ SCH (21:00)
[2020-01-21] MEDS ORDERED: Insulin DETEMIR 100 UNIT/ML X5UNITS SQ SCH (21:00)
[2020-01-21] MEDS: Nystatin POWDER 30 GM BOTTLE TP SCH (21:55)
[2020-01-22 03:27] LABS: Hematocrit 22.4 % (37.5-50.1); Hemoglobin 7.1 g/dL (12.9-16.9); Mean Corpuscular HGB Conc 31.7 g/dL (31.6-35.5); Mean Corpuscular Hemoglobin 28.9 pg (28.0-33.3); Mean Corpuscular Volume 91.1 fL (83.0-100.0); Mean Platelet Volume 10.7 fL (9.4-12.4); Platelet Count 365 K/mcL (140-400); Red Blood Count 2.46 M/mcL (4.19-5.50); Red Cell Distribution Width 15.8 % (11.5-14.5); White Blood Count 5.6 K/mcL (4.3-11.1)
[2020-01-22 03:34] LABS: INR 1.2; Prothrombin Time 13.5 Seconds (9.4-12.1)
[2020-01-22 03:37] LABS: Activated Partial Thrombo Time 49.6 Seconds (26.0-36.0)
[2020-01-22 03:51] LABS: Calcium 6.4 mg/dL (8.6-10.3); Potassium 3.8 mEq/L (3.5-5.1)
[2020-01-22 06:42] VITALS: BP 118/70
[2020-01-22] MEDS: Metoprolol 100 MG TABLET PO SCH (08:32)
[2020-01-22] MEDS: allopurinoL 100 MG TABLET PO SCH (08:32)
[2020-01-22] MEDS: Loratadine 10 MG TABLET PO SCH (08:32)
[2020-01-22] MEDS: cephALEXin 500 MG CAPSULE PO SCH (08:32)
[2020-01-22] MEDS: Insulin LISPRO 300 UNITS/3 ML VIAL SQ SCH (08:32)
[2020-01-22] MEDS: amLODIPine 5 MG TABLET PO SCH (08:32)
[2020-01-22] MEDS: Nystatin POWDER 30 GM BOTTLE TP SCH (08:32)
[2020-01-22] MEDS: Isosorbide MONOnitrate (24 HR) 30 MG TAB.ER.24H PO SCH (08:32)
== END 2020-01-22 11:24 ==
LOC: EMEROOARM 02:57 → 3BNU 02:57 → SUATTDRO 07:04 → 3BNU 08:00
PROVIDERS: ADMIT Family Medicine; ATTEND Family Medicine